=== PATIENT | female | born 1975 | race Two or more races ===

== ENCOUNTER 2024-12-25 10:24 | Inpatient (IN) | payer MEDICAID, OTHER ==
[~2024-12-25] VITALS: Ht 165.1 cm; Wt 102.8 kg
--- NOTE | 2024-12-25 10:29 | ED.PDOC ---
HPI (NEURO) HPI Comments HPI: 47y F who presents to the ED via EMS for chief complaint of seizure like activity. - per EMS, pt states pt was walking to get to her walker and states pt was holding walker and suddenly started to have seizure like activity and fell to the floor - pt states pt did hit her head with no associated loss of consciousness but exhibiting seizure like activity while on the floor and EMS was called to the scene - EMS arrived on scene with noted stable vitals but noted pt exhibiting post- ictal state and noted to be exhibiting tremor like activity - pt arrived to the ED, noted to exhibiting tremor like activity but is alert and oriented and able to answer all questions - EMS states pt did take her Trileptal seizure medication last night and earlier this AM and states she is otherwise complaint with her medications. - pt denies use of blood thinner at this time -pt states she saw neurologist 2x months prior and had her seizure medication changed from Keppra to Trileptal - pt last saw neurologist 2x weeks prior - pt states despite taking her medications, she gets seizures 1-2x monthly - pt in the ED, states she has been sick at home for the past 5x days with associated nausea, vomiting, diarrhea, - pt now in ED, denies these symptoms Past Medical history: epilepsy, HTN, RA, SLE, Past Surgical history: unknown Medications: Trileptal, Prozac, gabapentin, Seroquel , furosemide however patient states she has not been taking it Social History: Denies smoking, ETOH, and drug use. Allergies: morphine HPI: Poor Historian. REVIEW OF SYSTEMS: CONSTITUTIONAL: Denies acute: fever, diaphoresis, chills, HEAD: Denies acute: headache, photophobia Eyes: Denies acute: Double vision, vision loss, eye pain, eye discharge. EARS: Denies acute: tinnitus, hearing loss, ear discharge, ear pain, THROAT: Denies acute: sore throat, swelling, difficulty swallowing , pain with swallowing, change in voice. NECK: Denies acute: neck pain, neck swelling, stiff neck. HEART: Denies acute : chest pain, palpitations, LUNGS: Denies acute: SOB, wheezing, cough, hemoptysis ABDOMEN: Denies acute: abdominal pain, Nausea, Vomiting, diarrhea, melena , hematemesis, hematochezia SKIN: Denies acute: rash, redness, lesions, itchiness. EXTREMITIES: Denies acute: calf pain, numbness, tingling, weakness, denies pain in extremity. Denies acute: Low back pain. Neuro: Denies acute: focal neurological deficit, motor or sensory focal neurological deficit, confusion, dizziness, change in mental status, loss of bowel or bladder function, cauda equina like symptoms. : Denies acute: dysuria, hematuria, flank pain, increase in urinary frequency. PSYCH: Denies acute: hallucination, suicidal ideation, homicidal ideation. FEMALE: Denies acute: abnormal vaginal bleeding, foul odor, unusual discharge. PHYSICAL EXAM: General: ----mild----acute distress, awake and alert. Head: normocephalic, atraumatic. Neck: supple, trachea is midline, no swelling. Cervical spine: Palpation of the posterior midline of the cervical spine reveals no focal swelling, erythema, focal tenderness to palpation. Patient has normal range of motion. Throat: Normal phonation. Eyes:, no erythema, no purulent discharge, no proptosis, no icterus. Heart: regular rate, regular rhythm, no significant murmur appreciated. Lungs: no apparent respiratory distress, Able to speak in full sentences. No wheezing, no rhonchi, no crackles. No stridors Clear to auscultation bilaterally. Abdomen: non tender to palpation, non distended, soft, no guarding, no rebound, + bowel sounds. Obese Neuro: Awake, Alert, oriented to name, self, situation, follows commands. Noted resting tremors/jerking like sensation GCS=15. Speech is normal. Skin: no petechia, no purpura, no cyanosis, non-pale, not jaundice. Lower extremities: --no - Pitting edema no deformity, no focal swelling, no calf TTP. Makes eye contact. moves all four extremities. Face: no apparent facial droop. PERRLA, EOM-I CN 2-12 are grossly intact, No nystagmus. No nuchal rigidity, Kernig's sign, Brudzinski's sign, no meningeal signs. ED COURSE: DISCLAIMER: This medical document was created using an electronic medical record system with voice recognition software and computerized dictation system. Although this document has been carefully reviewed, there might still be some phonetic and typographical errors. Occasional wrong-word or "sound-alike" substitutions may have occurred due to the inherent limitations of voice recognition software. These areas are purely typographical due to imperfections of the software programs and do not reflect any compromise in the patient's medical care. Please read the chart carefully and recognize, using context, where these substitutions have occurred. Time Seen by MD: 10:31 Reviewed Notes: Wax Cutter Notes Information Source: Patient, Emergency Med Personnel Mode of Arrival: EMS Brought in by: EMS Was a procedure done? Was a procedure done?: No Differential Diagnosis (SZ) Seizure: Other (SEIZUREDDX include not limited to CVA, cerebellar ischemia/infarct, carotid stenosis, vertebral/carotid artery dissection,, kelly tebrobasillary insufficiency, Intracranial mass/infection/bleed, encephalopathy, elctrolyte abnormality, thyroid disease, multiple sclerosis, hypoglycemia, drug toxicity, cardiac arrhythmia, sub-theraputic anti-convulsion medications, known seizure disorder, pseudo-seizure.) X-Ray, Labs, Meds, VS Vital Signs Date Time Temp Pulse Resp B/P (MAP) Pulse Ox O2 Delivery O2 Flow Rate FiO2 12/25/24 13:32 87 12/25/24 13:20 81 13 103/55 (71) 96 12/25/24 11:30 88 12/25/24 11:00 98.1 94 13 87/49 (62) 89 98.1 12/25/24 11:00 94 13 89 Nasal Cannula* 4 36 12/25/24 10:44 98.8 101 18 111/83 (92) 96 98.8 12/25/24 10:43 94 Lab Test 12/25/24 12:19 12/25/24 12:12 12/25/24 11:48 12/25/24 10:50 Range/Units Prothrombin Time 10.5 9.3-11.8 sec Prothrombin Time INR 0.99 0.9-1.15 Activated Partial Thromboplast Time 22.0 L 24.5-34.5 SEC Lactic Acid Level 2.0 2.5 *H 0.4-2.0 mmol/L Urine Color Yellow Yellow Urine Clarity Clear Clear Urine pH 5.5 5.0-9.0 Urine Specific [employer] 1.016 1.001-1.035 Urine Protein 2+ H Negative Urine Ketones Negative Negative Urine Blood Negative Negative /uL Urine Nitrite Negative Negative Urine Bilirubin Negative Negative Urine Urobilinogen Normal Negative mg/dL Urine Leukocyte Esterase Negative Negative /uL Urine RBC <1 0 - 4 /hpf Urine Microscopic WBC 1 0-5 /HPF Urine Squamous Epithelial Cells Few <5 /hpf Urine Bacteria None seen None Seen /hpf Urine Hyaline Casts Few 0 - 2 /lpf Urine Creatinine 138.14 H 30.0-125.0 mg/dL Urine Protein/Creatinine Ratio 1.76 Urine Glucose 3+ H Normal mg/dL Urine Total Protein 243.8 H 1-14 mg/dL Urine Opiates Screen Neg NEGATIVE Urine Fentanyl Screen Neg NEGATIVE Urine Barbiturates Screen Neg NEGATIVE Urine Phencyclidine Screen Neg NEGATIVE Urine Amphetamines Screen Neg NEGATIVE Urine Benzodiazepines Screen Neg NEGATIVE Urine Cocaine Screen Neg NEGATIVE Urine Cannabinoids Screen Pos NEGATIVE POC Glucose 151 H 70-106 mg/dl White Blood Count 14.0 H 4.4-10.8 10^3/uL Red Blood Count 4.60 4.0-5.20 10^6/uL Hemoglobin 13.3 12.2-16.2 g/dL Hematocrit 39.5 36.0-46.0 % Mean Corpuscular Volume 85.8 80.0-100.0 fL Mean Corpuscular Hemoglobin 28.9 28.0-32.0 pg Mean Corpuscular Hemoglobin Concent 33.7 32.0-36.0 g/dL Red Cell Distribution Width 15.3 H 11.8-14.3 % Platelet Count 142 140-450 10^3/uL Mean Platelet Volume 9.7 6.9-10.8 fL Neutrophils (%) (Auto) 68.4 37.0-80.0 % Lymphocytes (%) (Auto) 25.2 10.0-50.0 % Monocytes (%) (Auto) 4.2 0.0-12.0 % Eosinophils (%) (Auto) 1.8 0.0-7.0 % Basophils (%) (Auto) 0.4 0.0-2.0 % Neutrophils # (Auto) 9.6 H 1.6-8.6 10 ^3/uL Lymphocytes # (Auto) 3.5 0.4-5.4 10 ^3/uL Monocytes # (Auto) 0.6 0-1.3 10 ^3/uL Eosinophils # (Auto) 0.2 0-0.8 10 ^3/uL Basophils # (Auto) 0.1 0-0.2 10 ^3/uL Nucleated Red Blood Cells 0.0 % Sodium Level 136 136-145 mmol/L Potassium Level 3.9 3.5-5.1 mmol/L Chloride Level 97 L 98-107 mmol/L Carbon Dioxide Level 29 20-31 mmol/L Anion Gap 10 5-15 Blood Urea Nitrogen 52 H 9-23 mg/dL Creatinine 3.80 H 0.550-1.02 mg/dL Glomerular Filtration Rate Calc 14 >90 mL/min BUN/Creatinine Ratio 13.7 10.0-20.0 Serum Glucose 145 H 74-106 mg/dL Calcium Level 9.7 8.7-10.4 mg/dL Magnesium Level 1.9 1.6-2.6 mg/dL Total Bilirubin 0.3 0.2-1.0 mg/dL Aspartate Amino Transferase (AST) 33 13-40 U/L Alanine Aminotransferase (ALT) 38 7-40 U/L Alkaline Phosphatase 144 H 46-116 U/L Troponin I High Sensitivity < 3 L </=34 ng/L Total Protein 7.4 5.7-8.2 g/dL Albumin 4.3 3.2-4.8 g/dL Microbiology Date/Time Source Procedure Growth Status 12/25/24 12:00 Blood Blood Culture - Final NO GROWTH AFTER 5 DAYS OF INCUBATION. [facility] 12/25/24 11:50 Blood Blood Culture - Final NO GROWTH AFTER 5 DAYS OF INCUBATION. [place] [address] Ph: [phone] DIAGNOSTIC IMAGING Diagnostic Imaging Report : [id number] Signed PATIENT: LINDA SANTANA ACCT: [id number] UNIT: [id number] : 1975 LOC: ER ROOM / BED: / AGE / SEX: 49 / F ADM STATUS: REG ER SERVICE 1028 ORDERING PHYSICIAN: LEO MCGRAW DO PROCEDURE(s): HWOCT - HEAD WITHOUT CONTRAST REASON: ORDER NUMBER(s): [id number], ACCESSION NUMBER(s): [id number] CT HEAD WITHOUT CONTRAST INDICATION: sz EXAM DATE: 12/25/2024 11:03 AM COMPARISON: None RADIATION DOSE: CTDIvol: 590.55 mGy, DLP: 589.11 mGy*cm PROCEDURE: CT scans of the head were obtained from the vertex to the skull base. Sagittal and coronal reconstructions were provided. All CT scans at this medical facility are performed using dose modulation techniques as appropriate to a performed exam including the following: Automated exposure control was utilized; adjustment of the MA and/or KV according to patient size; and use of iterative reconstruction technique. FINDINGS: There is sulcal and ventricular prominence. The brainshows normal morphology and mora-white matter differentiation, without intracranial hemorrhage, extra-axial fluid collection, mass effect or acute large vessel infarct. The ventricles are normal in size. The basal cisterns are patent. The skull and visible facial bones are intact. The paranasal sinuses, mastoid air cells and middle ear cavities are well-aerated. The soft tissues of the scalp are unremarkable. IMPRESSION: No acute intracranial abnormality. ATED BY: ROBERTH TAFOYA MD DICTATED DATE/TIME: 12/25/24 1140 SIGNED BY: ROBERTH TAFOYA MD SIGNED DATE/TIME: 12/25/24 1140 CC: [place] [address] Ph: [phone] DIAGNOSTIC IMAGING Diagnostic Imaging Report : [id number] Signed PATIENT: LINDA SANTANA ACCT: [id number] UNIT: [id number] : 1975 LOC: ER ROOM / BED: / AGE / SEX: 49 / F ADM STATUS: REG ER SERVICE 1028 ORDERING PHYSICIAN: LEO MCGRAW DO PROCEDURE(s): CXRP - CHEST PORTABLE REASON: ORDER NUMBER(s): [id number], ACCESSION NUMBER(s): [id number] CHEST PORTABLE, HISTORY: COMPARISON: None None TECHNICAL DATA: 1 view of the chest was obtained. FINDINGS: Lines and tubes: None Cardiomediastinal silhouette: normal Pulmonary vasculature: normal Lung expansion: normal Lung airspace: normal Lung interstitium: normal Pleura: normal Pneumothorax: no Bones: Unremarkable Other: no IMPRESSION: No acute intrathoracic abnormality. ATED BY: ROBERTH TAFOYA MD DICTATED DATE/TIME: 12/25/24 1142 SIGNED BY: ROBERTH TAFOYA MD SIGNED DATE/TIME: 12/25/24 114 CC: [address] [address] Ph: [phone] DIAGNOSTIC IMAGING Diagnostic Imaging Report : [id number] Signed PATIENT: LINDA SANTANA ACCT: [id number] UNIT: [id number] : 1975 LOC: ER ROOM / BED: / AGE / SEX: 49 / F ADM STATUS: REG ER SERVICE 1028 ORDERING PHYSICIAN: LEO MCGRAW DO PROCEDURE(s): CS2 - CERVICAL WITHOUT CONTRAST REASON: donna ORDER NUMBER(s): [id number], ACCESSION NUMBER(s): [id number] EXAM: CT CERVICAL WITHOUT CONTRAST INDICATION: sz EXAM DATE: 12/25/2024 11:05 AM COMPARISON: None TECHNIQUE: Multiple axial CT images of the cervical spine were obtained using noemy ne algorithm. Sagittal and coronal reformatting was done. Bone and soft tissue windows were reviewed. Radiation Dose Information: CT Dose: CTDI volume is 0.07 mGy. Dose-length product is 626.64 mGy*cm FINDINGS: The cervical alignment is intact. No acute cervical spine fracture is identified. The vertebral body heights are intact. No suspicious osseous lesions are identified. No significant degenerative changes are identified. Difficult spinal or neural foraminal stenosis. There is no prevertebral soft tissue swelling. IMPRESSION: 1. No evidence of acute cervical spine fracture or traumatic malalignment. All CT scans at this medical facility are performed using dose modulation techniques as appropriate to a performed exam including the following: Automated exposure control was utilized; adjustment of the MA and/or KV according to patient size; and use of iterative reconstruction technique. ATED BY: HARLAN JACKSON MD DICTATED DATE/TIME: 12/25/24 1211 SIGNED BY: HARLAN JACKSON MD SIGNED DATE/TIME: 12/25/24 121 CC: Time of 1ST Reevaluation: 18:31 Reevaluation 1ST: Improved Patient Education/Counseling: Diagnosis, Treatment Family Education/Counseling: No Family Present Comments MDM: patient presented with the above HPI.---seizure---workup was initiated. patient was found with the above mentioned diagnosis. the following medications were ordered: please refer to order lists of meds and tests obtained by myself Dr. Mcgraw. Patient ED course and VS have been stabilized. Patient has been reassessed in the ED and remained in a stable condition. Pertinent incidental findings were discussed with the patient and/or family. Patient/family voices understanding and is agreeable with plan. Patient has been observed in the ED adequate length of time to insure improvement/stability. Escalation of care considered: Consideration of escalation to observation or admission Sepsis protocol was initiated. Patient was ADMITTED to the medicine team for further evaluation and treatment of their presentation. All the reports of any imaging studies that were ordered by myself were reviewed by myself. Departure 1 Departure Time of Disposition: 11:13 Impression: Primary Impression: Seizure disorder Additional Impressions: Hypotension Acute renal failure Sacral decubitus ulcer Dehydration Sepsis Leukocytosis Disposition: ADMITTED INPATIENT Admit to: Tele Condition: Guarded Discharged With: Self Critical Care Note Critical Care Time?: Yes (55 min-critical care time only) I personally scribed for LEO MCGRAW DO ([email or web address]) on 12/25/24 at 10:29. El ectronically submitted by Ko Hawley ([email or web address]). I personally scribed for LEO MCGRAW DO ([email or web address]) on 12/25/24 at 10:49. Electronically submitted by Ko Hawley ([email or web address]). I personally scribed for LEO MCGRAW DO ([email or web address]) on 12/25/24 at 11:09. Electronically submitted by Ko Hawley ([email or web address]). I personally scribed for LEO MCGRAW DO ([email or web address]) on 12/25/24 at 12:04. Electronically submitted by Ko Hawley ([email or web address]). I personally scribed for LEO MCGRAW DO ([email or web address]) on 12/25/24 at 12:45. Electronically submitted by Ko Hawley ([email or web address]). I personally scribed for LEO MCGRAW DO ([email or web address]) on 12/25/24 at 12:58. Electronically submitted by Ko Hawley ([email or web address]). LEO MCGRAW DO Dec 25, 2024 10:29
--- NOTE | 2024-12-25 10:52 | ECG ---
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
[2024-12-25 11:00] VITALS: PULSE 94; RESP 13; O2SAT 89
[2024-12-25 11:09] LABS: Hematocrit 39.5 % (36.0-46.0); Hemoglobin 13.3 g/dL (12.2-16.2); Mean Corpuscular Hemoglobin 28.9 pg (28.0-32.0); Mean Corpuscular Volume 85.8 fL (80.0-100.0); Nucleated Red Blood Cells % 0.0 %
[2024-12-25 11:24] LABS: Alanine Aminotransferase 38 U/L (7-40); Anion Gap 10 (5-15); BUN/Creatinine Ratio 13.7 (10.0-20.0); Calcium 9.7 mg/dL (8.7-10.4); Carbon Dioxide 29 mmol/L (20-31); Magnesium 1.9 mg/dL (1.6-2.6); Potassium 3.9 mmol/L (3.5-5.1); Total Protein 7.4 g/dL (5.7-8.2)
[2024-12-25 11:25] LABS: Albumin 4.3 g/dL (3.2-4.8)
[2024-12-25 11:27] LABS: Alkaline Phosphatase 144 U/L (46-116); Bilirubin, Total 0.3 mg/dL (0.2-1.0); Blood Urea Nitrogen 52 mg/dL (9-23); Chloride 97 mmol/L (98-107); Glucose 145 mg/dL (74-106); Sodium 136 mmol/L (136-145)
[2024-12-25 11:28] LABS: Lactic Acid w/Reflex 2.5 mmol/L (0.4-2.0)
--- NOTE | 2024-12-25 11:42 | DVH ---
CT HEAD WITHOUT CONTRAST INDICATION: sz EXAM DATE: 12/25/2024 11:03 AM COMPARISON: None RADIATION DOSE: CTDIvol: 590.55 mGy, DLP: 589.11 mGy*cm PROCEDURE: CT scans of the head were obtained from the vertex to the skull base. Sagittal and coronal reconstructions were provided. All CT scans at this medical facility are performed using dose modulation techniques as appropriate t o a performed exam including the following: Automated exposure control was utilized; adjustment of th e MA and/or KV according to patient size; and use of iterative reconstruction technique. FINDINGS: There is sulcal and ventricular prominence. The brainshows normal morphology and mora-whi te matter differentiation, without intracranial hemorrhage, extra-axial fluid collection, mass effect or acute large vessel infarct. The ventricles are normal in size. The basal cisterns are patent. The skull and visible facial bones are intact. The paranasal sinuses, mastoid air cells and middle ear c avities are well-aerated. The soft tissues of the scalp are unremarkable. IMPRESSION: No acute intracranial abnormality.
--- NOTE | 2024-12-25 11:44 | DVH ---
XY CHEST PORTABLE, HISTORY: sz COMPARISON: None None TECHNICAL DATA: 1 view of the chest was obtained. FINDINGS: Lines and tubes: None Cardiomediastinal silhouette: normal Pulmonary vasculature: normal Lung expansion: normal Lung airspace: normal Lung interstitium: normal Pleura: normal Pneumothorax: no Bones: Unremarkable Other: no IMPRESSION: No acute intrathoracic abnormality.
[2024-12-25] MEDS: LACTATED RINGER'S 1,850 ML IV ONE (11:49)
[2024-12-25] MEDS: VANCOMYCIN 1GM/200ML PM 200 ML IV ONE (12:11)
[2024-12-25] MEDS: CEFEPIME 1GM/ 50ML 50 ML IV ONE (12:14)
--- NOTE | 2024-12-25 12:14 | DVH ---
EXAM: CT CERVICAL WITHOUT CONTRAST INDICATION: sz EXAM DATE: 12/25/2024 11:05 AM COMPARISON: None TECHNIQUE: Multiple axial CT images of the cervical spine were obtained using bone algorithm. Sagitta l and coronal reformatting was done. Bone and soft tissue windows were reviewed. Radiation Dose Information: CT Dose: CTDI volume is 0.07 mGy. Dose-length product is 626.64 mGy*cm FINDINGS: The cervical alignment is intact. No acute cervical spine fracture is identified. The vertebral body heights are intact. No suspicious osseous lesions are identified. No significant degenerative changes are identified. Difficult spinal or neural foraminal stenosis. There is no prevertebral soft tissue swelling. IMPRESSION: 1. No evidence of acute cervical spine fracture or traumatic malalignment. All CT scans at this medical facility are performed using dose modulation techniques as appropriate t o a performed exam including the following: Automated exposure control was utilized; adjustment of th e MA and/or KV according to patient size; and use of iterative reconstruction technique.
[2024-12-25] MEDS: SODIUM CHLORIDE 0.9% 1,000 ML IV ONE ×2 (12:22→15:16)
[2024-12-25 12:57] LABS: Urine Protein, UAD 2+ (Negative)
[2024-12-25 13:09] LABS: INR 0.99 (0.9-1.15); Partial Thromboplastin Time 22.0 SEC (24.5-34.5); Prothrombin Time 10.5 sec (9.3-11.8)
[2024-12-25] MEDS: ACETAMINOPHEN 325 MG TAB PO ONE (13:53)
[2024-12-25 14:52] LABS: Amphetamine Screen, Urine Neg (NEGATIVE); Barbiturate Scree,Urine Neg (NEGATIVE); Benzodiazephine Screen, Urine Neg (NEGATIVE); Cannabinoid Screen, Urine Pos (NEGATIVE); Cocaine Screen, Urine Neg (NEGATIVE); Opiate Scree,Urine Neg (NEGATIVE); Phencyclidine Screen, Urine Neg (NEGATIVE)
[2024-12-25] MEDS ORDERED: MORPHINE SULFATE INJ 2 MG/ml SYRG IV PRN (15:00)
[2024-12-25] MEDS ORDERED: DEXTROSE (50%) 50ML SYRG IV PRN (15:00)
[2024-12-25] MEDS ORDERED: NITROGLYCERIN 0.4 MG SL TAB SL PRN (15:00)
[2024-12-25] MEDS ORDERED: ONDANSETRON HCL 4 MG/2 ML VIAL IV PRN (15:00)
[2024-12-25] MEDS ORDERED: LORazepam 2MG/ML-1ML VIAL IV PRN (15:00)
--- NOTE | 2024-12-25 16:16 | DVHINCON2 ---
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 Javier mcbride in [facility]. She presents to the hospital complaining of several days of nausea vomiting decreased p.o. intake. Reports that her anti depression anxiety medications were recently changed she was found unresponsive by her with abnormal twitching activity. She was admitted to the ER with a tentative diagnosis of seizure disorder. Nephrology consulted due to elevated creatinine level. Most recent renal function as of July of this year the creatinine was 1.2. She now has a creatinine greater than 3.0 in the ER. She is currently alert and able to answer questions with mild intention tremor Allergies: Coded Allergies: Morphine (Verified Allergy, Unknown, 12/25/24) Penicillins (Verified Allergy, Unknown, 12/25/24) Current Medications Current Medications Medications (Trade) Dose Ordered Sig/Rolly Route PRN Reason Start Time Stop Time Status Last Admin Cefepime HCl 50 ml @ 12.5 mls/hr DAILY IV 12/26/24 10:00 Patient Own Medication 100 mg TID PO 12/25/24 22:00 UNV Fluoxetine HCl (PROzac CAPSULE) 20 mg DAILY PO 12/26/24 10:00 Furosemide (Lasix Tablet) 20 mg QAM PO 12/26/24 07:00 Patient Own Medication 50 mg BID PO 12/25/24 22:00 UNV Atorvastatin Calcium (Lipitor) 40 mg HS PO 12/25/24 22:00 Lorazepam (Ativan Inj) 1 mg Q5MINP PRN IV SEIZURES 12/25/24 15:00 Diagnostic Test (Pha) (Accu-Chek Comfort Curve T) 1 strip ACHS 12/25/24 17:00 Insulin Human Regular (InsuLIN R) ACHS SC 12/25/24 17:00 Dextrose 50 ml UD PRN IV Blood Sugar LESS THAN 60 12/25/24 15:00 Ondansetron HCl (Zofran) 4 mg Q4HP PRN IV NAUSEA / VOMITING 12/25/24 15:00 Acetaminophen (Tylenol Tablet) 650 mg Q6HP PRN PO PAIN SCALE 1-3 OR TEMP>100.4 12/25/24 15:00 Nitroglycerin (Ntrostat Sublingual) 0.4 mg Q5MINP PRN SL FOR CHEST PAIN 12/25/24 15:00 Morphine Sulfate 2 mg Q30M PRN IV FOR CHEST PAIN 12/25/24 15:00 UNV Review of Systems Seizure-like activity change in mental state H&P Exam Vital Signs/I&O Vital Sign Date Time Temp Pulse Resp B/P (MAP) Pulse Ox O2 Delivery O2 Flow Rate FiO2 12/25/24 15:14 98.0 95 15 133/66 (88) 96 98.0 12/25/24 11:00 Nasal Cannula* 4 36 Physical Exam Obese mildly anxious female Not overt distress Currently not confused able to answer questions No pitting edema Abdomen is soft Labs/Diagnostic Data Labs/Diagnostic Data Laboratory Tests Test 12/25/24 12:19 12/25/24 12:12 12/25/24 11:48 12/25/24 10:50 Range/Units Prothrombin Time 10.5 9.3-11.8 sec Prothrombin Time INR 0.99 0.9-1.15 Activated Partial Thromboplast Time 22.0 L 24.5-34.5 SEC Lactic Acid Level 2.0 2.5 *H 0.4-2.0 mmol/L Urine Color Yellow Yellow Urine Clarity Clear Clear Urine pH 5.5 5.0-9.0 Urine Specific [place] 1.016 1.001-1.035 Urine Protein 2+ H Negative Urine Ketones Negative Negative Urine Blood Negative Negative /uL Urine Nitrite Negative Negative Urine Bilirubin Negative Negative Urine Urobilinogen Normal Negative mg/dL Urine Leukocyte Esterase Negative Negative /uL Urine RBC <1 0 - 4 /hpf Urine Microscopic WBC 1 0-5 /HPF Urine Squamous Epithelial Cells Few <5 /hpf Urine Bacteria None seen None Seen /hpf Urine Hyaline Casts Few 0 - 2 /lpf Urine Glucose 3+ H Normal mg/dL Urine Opiates Screen Neg NEGATIVE Urine Fentanyl Screen Neg NEGATIVE Urine Barbiturates Screen Neg NEGATIVE Urine Phencyclidine Screen Neg NEGATIVE Urine Amphetamines Screen Neg NEGATIVE Urine Benzodiazepines Screen Neg NEGATIVE Urine Cocaine Screen Neg NEGATIVE Urine Cannabinoids Screen Pos NEGATIVE POC Glucose 151 H 70-106 mg/dl White Blood Count 14.0 H 4.4-10.8 10^3/uL Red Blood Count 4.60 4.0-5.20 10^6/uL Hemoglobin 13.3 12.2-16.2 g/dL Hematocrit 39.5 36.0-46.0 % Mean Corpuscular Volume 85.8 80.0-100.0 fL Mean Corpuscular Hemoglobin 28.9 28.0-32.0 pg Mean Corpuscular Hemoglobin Concent 33.7 32.0-36.0 g/dL Red Cell Distribution Width 15.3 H 11.8-14.3 % Platelet Count 142 140-450 10^3/uL Mean Platelet Volume 9.7 6.9-10.8 fL Neutrophils (%) (Auto) 68.4 37.0-80.0 % Lymphocytes (%) (Auto) 25.2 10.0-50.0 % Monocytes (%) (Auto) 4.2 0.0-12.0 % Eosinophils (%) (Auto) 1.8 0.0-7.0 % Basophils (%) (Auto) 0.4 0.0-2.0 % Neutrophils # (Auto) 9.6 H 1.6-8.6 10 ^3/uL Lymphocytes # (Auto) 3.5 0.4-5.4 10 ^3/uL Monocytes # (Auto) 0.6 0-1.3 10 ^3/uL Eosinophils # (Auto) 0.2 0-0.8 10 ^3/uL Basophils # (Auto) 0.1 0-0.2 10 ^3/uL Nucleated Red Blood Cells 0.0 % Sodium Level 136 136-145 mmol/L Potassium Level 3.9 3.5-5.1 mmol/L Chloride Level 97 L 98-107 mmol/L Carbon Dioxide Level 29 20-31 mmol/L Anion Gap 10 5-15 Blood Urea Nitrogen 52 H 9-23 mg/dL Creatinine 3.80 H 0.550-1.02 mg/dL Glomerular Filtration Rate Calc 14 >90 mL/min BUN/Creatinine Ratio 13.7 10.0-20.0 Serum Glucose 145 H 74-106 mg/dL Calcium Level 9.7 8.7-10.4 mg/dL Magnesium Level 1.9 1.6-2.6 mg/dL Total Bilirubin 0.3 0.2-1.0 mg/dL Aspartate Amino Transferase (AST) 33 13-40 U/L Alanine Aminotransferase (ALT) 38 7-40 U/L Alkaline Phosphatase 144 H 46-116 U/L Troponin I High Sensitivity < 3 L </=34 ng/L Total Protein 7.4 5.7-8.2 g/dL Albumin 4.3 3.2-4.8 g/dL Assessment 49-year-old white female past medical history of chronic kidney disease three and depression anxiety on medications presents to the hospital after unresponsiveness and possible seizure disorder. She is admitted for this reason. Nephrology consulted due to acute kidney injury. Acute kidney injury hemodynamically mediated in the setting of volume depletion reports nausea vomiting diarrhea Chronic kidney disease stage IIIA Dr. Herrera Depression anxiety on neuroleptics Hypertension Diabetes Tremors and possible seizure disorder Agree with IV fluid hydration Electrolyte replacement as needed P.o. as tolerated Patient endorses a history of lupus and reports she is on Plaquenil however outpatient office notes do not show this on her medication list. Recommend reconciliation with her pharmacy. We will send urine and serologies , will also send hepatitis serologies No emergent indication for dialysis at this time we will continue trial of IV fluids and monitor for improvement in renal function. Total care time spent 55 minutes Plan discussed with: Patient KELLI COELHO MD Dec 25, 2024 16:16
--- NOTE | 2024-12-25 16:24 | DVHHP2 ---
History of Present Illness Reason for Visit: Seizure activity History of Present Illness 47-year-old female with a history of epilepsy presents for evaluation of seizure-like activity. Patient reports having a witnessed episode lasting approximately 5 minutes. She states that after she regained consciousness she did not recall what it has been. She was having a headache which has currently resolved. No oral trauma or incontinence. Denies any other acute complaints at the moment. Past Medical History Seizure, hypertension, rheumatoid arthritis, SLE, diabetes mellitus Past Surgical History Denies Family History Noncontributory Smoke: No ALCOHOL: none Drugs: Marijuana Lives: with Family Review of Systems Review of Systems Review of systems are currently negative otherwise addressed in HPI. Allergies: Coded Allergies: Morphine (Verified Allergy, Unknown, 12/25/24) Penicillins (Verified Allergy, Unknown, 12/25/24) Medications Current Medications Medications Dose Ordered Sig/Rolly Route Start Time Stop Time Status Last Admin Dose Admin Cefepime HCl 50 ml @ 12.5 mls/hr DAILY IV 12/26/24 10:00 Patient Own Medication 100 mg TID PO 12/25/24 22:00 UNV Fluoxetine HCl 20 mg DAILY PO 12/26/24 10:00 Furosemide 20 mg QAM PO 12/26/24 07:00 Patient Own Medication 50 mg BID PO 12/25/24 22:00 UNV Atorvastatin Calcium 40 mg HS PO 12/25/24 22:00 Lorazepam 1 mg Q5MINP PRN IV 12/25/24 15:00 Diagnostic Test (Pha) 1 strip ACHS 12/25/24 17:00 Insulin Human Regular ACHS SC 12/25/24 17:00 Dextrose 50 ml UD PRN IV 12/25/24 15:00 Ondansetron HCl 4 mg Q4HP PRN IV 12/25/24 15:00 Acetaminophen 650 mg Q6HP PRN PO 12/25/24 15:00 Nitroglycerin 0.4 mg Q5MINP PRN SL 12/25/24 15:00 Morphine Sulfate 2 mg Q30M PRN IV 12/25/24 15:00 UNV Exam Vital Signs Vital Signs Date Time Temp Pulse Resp B/P (MAP) Pulse Ox O2 Delivery O2 Flow Rate FiO2 12/25/24 15:14 98.0 95 15 133/66 (88) 96 98.0 12/25/24 11:00 Nasal Cannula* 4 36 Exam Gen: 47-year-old female in no apparent distress. Skin: Warm, dry, normal color and texture, no rash. HEENT: Normocephalic atraumatic, mucous membranes moist and pink. Neck: Cervical and supraclavicular nodes normal without enlargement, trachea is midline, thyroid gland is normal without masses. Pulmonary: Clear to auscultation and percussion bilaterally. Cardiac: Regular rate and rhythm. No murmur Abdomen: Soft, nontender, nondistended, bowel sounds present all 4 quadrants, no guarding, no rigidity, no organomegaly. Extremities: No cyanosis, clubbing, no edema Neuro: Cranial nerves II through XII grossly intact, normal affect and speech, no focal motor deficits. Labs/Xrays ORDERING PHYSICIAN: LEO MCGRAW DO PROCEDURE(s): CS2 - CERVICAL WITHOUT CONTRAST REASON: ORDER NUMBER(s): [id number], ACCESSION NUMBER(s): [id number] EXAM: CT CERVICAL WITHOUT CONTRAST INDICATION: EXAM DATE: 12/25/2024 11:05 AM COMPARISON: None TECHNIQUE: Multiple axial CT images of the cervical spine were obtained using bone algorithm. Sagittal and coronal reformatting was done. Bone and soft tissue windows were reviewed. Radiation Dose Information: CT Dose: CTDI volume is 0.07 mGy. Dose-length product is 626.64 mGy*cm FINDINGS: The cervical alignment is intact. No acute cervical spine fracture is identified. The vertebral body heights are intact. No suspicious osseous lesions are identified. No significant degenerative changes are identified. Difficult spinal or neural foraminal stenosis. There is no prevertebral soft tissue swelling. IMPRESSION: 1. No evidence of acute cervical spine fracture or traumatic malalignment. All CT scans at this medical facility are performed using dose modulation techniques as appropriate to a performed exam including the following: Automated exposure control was utilized; adjustment of the MA and/or KV according to patient size; and use of iterative reconstruction technique. RING PHYSICIAN: LEO MCGRAW DO PROCEDURE(s): CXRP - CHEST PORTABLE REASON: ORDER NUMBER(s): [id number], ACCESSION NUMBER(s): [id number] CHEST PORTABLE, HISTORY: COMPARISON: None None TECHNICAL DATA: 1 view of the chest was obtained. FINDINGS: Lines and tubes: None Cardiomediastinal silhouette: normal Pulmonary vasculature: normal Lung expansion: normal Lung airspace: normal Lung interstitium: normal Pleura: normal Pneumothorax: no Bones: Unremarkable Other: no IMPRESSION: No acute intrathoracic abnormality. ATED BY: ROBERTH TAFOYA MD ORDERING PHYSICIAN: LEO MCGRAW DO PROCEDURE(s): HWOCT - HEAD WITHOUT CONTRAST REASON: ORDER NUMBER(s): [id number], ACCESSION NUMBER(s): [id number] CT HEAD WITHOUT CONTRAST INDICATION: EXAM DATE: 12/25/2024 11:03 AM COMPARISON: None RADIATION DOSE: CTDIvol: 590.55 mGy, DLP: 589.11 mGy*cm PROCEDURE: CT scans of the head were obtained from the vertex to the skull base. Sagittal and coronal reconstructions were provided. All CT scans at this medical facility are performed using dose modulation techniques as appropriate to a performed exam including the following: Automated exposure control was utilized; adjustment of the MA and/or KV according to patient size; and use of iterative reconstruction technique. FINDINGS: There is sulcal and ventricular prominence. The brainshows normal morphology and mora-white matter differentiation, without intracranial hemorrhage, extra-axial fluid collection, mass effect or acute large vessel infarct. The ventricles are normal in size. The basal cisterns are patent. The skull and visible facial bones are intact. The paranasal sinuses, mastoid air cells and middle ear cavities are well-aerated. The soft tissues of the scalp are unremarkable. IMPRESSION: No acute intracranial abnormality. Labs Test 12/25/24 12:19 12/25/24 12:12 12/25/24 11:48 12/25/24 10:50 Range/Units Prothrombin Time 10.5 9.3-11.8 sec Prothrombin Time INR 0.99 0.9-1.15 Activated Partial Thromboplast Time 22.0 L 24.5-34.5 SEC Lactic Acid Level 2.0 0.4-2.0 mmol/L Urine Color Yellow Yellow Urine Clarity Clear Clear Urine pH 5.5 5.0-9.0 Urine Specific [place] 1.016 1.001-1.035 Urine Protein 2+ H Negative Urine Ketones Negative Negative Urine Blood Negative Negative /uL Urine Nitrite Negative Negative Urine Bilirubin Negative Negative Urine Urobilinogen Normal Negative mg/dL Urine Leukocyte Esterase Negative Negative /uL Urine RBC <1 0 - 4 /hpf Urine Microscopic WBC 1 0-5 /HPF Urine Squamous Epithelial Cells Few <5 /hpf Urine Bacteria None seen None Seen /hpf Urine Hyaline Casts Few 0 - 2 /lpf Urine Glucose 3+ H Normal mg/dL Urine Opiates Screen Neg NEGATIVE Urine Fentanyl Screen Neg NEGATIVE Urine Barbiturates Screen Neg NEGATIVE Urine Phencyclidine Screen Neg NEGATIVE Urine Amphetamines Screen Neg NEGATIVE Urine Benzodiazepines Screen Neg NEGATIVE Urine Cocaine Screen Neg NEGATIVE Urine Cannabinoids Screen Pos NEGATIVE POC Glucose 151 H 70-106 mg/dl White Blood Count 14.0 H 4.4-10.8 10^3/uL Red Blood Count 4.60 4.0-5.20 10^6/uL Hemoglobin 13.3 12.2-16.2 g/dL Hematocrit 39.5 36.0-46.0 % Mean Corpuscular Volume 85.8 80.0-100.0 fL Mean Corpuscular Hemoglobin 28.9 28.0-32.0 pg Mean Corpuscular Hemoglobin Concent 33.7 32.0-36.0 g/dL Red Cell Distribution Width 15.3 H 11.8-14.3 % Platelet Count 142 140-450 10^3/uL Mean Platelet Volume 9.7 6.9-10.8 fL Neutrophils (%) (Auto) 68.4 37.0-80.0 % Lymphocytes (%) (Auto) 25.2 10.0-50.0 % Monocytes (%) (Auto) 4.2 0.0-12.0 % Eosinophils (%) (Auto) 1.8 0.0-7.0 % Basophils (%) (Auto) 0.4 0.0-2.0 % Neutrophils # (Auto) 9.6 H 1.6-8.6 10 ^3/uL Lymphocytes # (Auto) 3.5 0.4-5.4 10 ^3/uL Monocytes # (Auto) 0.6 0-1.3 10 ^3/uL Eosinophils # (Auto) 0.2 0-0.8 10 ^3/uL Basophils # (Auto) 0.1 0-0.2 10 ^3/uL Nucleated Red Blood Cells 0.0 % Sodium Level 136 136-145 mmol/L Potassium Level 3.9 3.5-5.1 mmol/L Chloride Level 97 L 98-107 mmol/L Carbon Dioxide Level 29 20-31 mmol/L Anion Gap 10 5-15 Blood Urea Nitrogen 52 H 9-23 mg/dL Creatinine 3.80 H 0.550-1.02 mg/dL Glomerular Filtration Rate Calc 14 >90 mL/min BUN/Creatinine Ratio 13.7 10.0-20.0 Serum Glucose 145 H 74-106 mg/dL Calcium Level 9.7 8.7-10.4 mg/dL Magnesium Level 1.9 1.6-2.6 mg/dL Total Bilirubin 0.3 0.2-1.0 mg/dL Aspartate Amino Transferase (AST) 33 13-40 U/L Alanine Aminotransferase (ALT) 38 7-40 U/L Alkaline Phosphatase 144 H 46-116 U/L Troponin I High Sensitivity < 3 L </=34 ng/L Total Protein 7.4 5.7-8.2 g/dL Albumin 4.3 3.2-4.8 g/dL SEPSIS Sepsis Screen Date sepsis recognized/suspect: Dec 25, 2024 Time Sepsis recognized/suspect: 1100 Recent Procedure: No On Antibiotic Therapy: No Respiratory Rate >20: No Heart Rate >90: Yes Temp<36 C (96.8 F) or >38.3 C: No SBP <90 or MAP <65 mmHG: Yes New Acute Mental Status Change: No Is the patient on CPAP, BIPAP,: No Physician Orders Admission Liaison (12/25/24 ) Seizure Precautions (12/25/24 ) Chest Portable (12/25/24 10:28) Head Without Contrast (12/25/24 10:28) Cervical Without Contrast (12/25/24 10:28) Accucheck (12/25/24 11:34) Blood Culture (12/25/24 11:34) Notify Md If Map <65 Or Bp<90 (12/25/24 11:34) If Map<65 Start Vasopressor (12/25/24 11:34) Sepsis Reassesment After Fluid (12/25/24 12:34) Cefepime 1gm/ 50ml (Maxipime 1gm/50ml) (12/26/24 10:00) Sodium Chloride 0.9% (12/25/24 15:00) (Nf) Xcopri (12/25/24 22:00) Fluoxetine Capsule (Prozac Capsule) (12/26/24 10:00) (Nf) Lacosamide (12/25/24 22:00) Atorvastatin (Lipitor) (12/25/24 22:00) Basic Metabolic Panel (12/26/24 04:00) Seizure Precautions In Place (12/25/24 14:52) Lorazepam 2mg/Ml Inj (Ativan Inj) (12/25/24 15:00) * Neurology Consult (12/25/24 14:52) Glucose Blood (Accu-Chek Comfort Curve T (12/25/24 17:00) Insulin R (Human) (Insulin R) (12/25/24 17:00) Dextrose 50% Syringe (12/25/24 15:00) Admit (12/25/24 14:52) Ondansetron Hcl (Zofran) (12/25/24 15:00) Complete Blood Count (12/26/24 04:00) Cardiac Diet-2gna,Lofat,Lochol (12/25/24 Dinner) Condition: Stable (12/25/24 14:52) Acetaminophen Tablet (Tylenol Tablet) (12/25/24 15:00) Bedrest With Bathroom Privileg (12/25/24 14:52) Nitroglycerin Sublingual (Ntrostat Subli (12/25/24 15:00) Morphine Sulfate Injection (12/25/24 15:00) Stat Ekg For Chest Pain (12/25/24 14:52) Notify Md Of Changes From Base (12/25/24 14:52) Manufacturing Engineer Supervisor For 24 Hours (12/25/24 14:52) Emergency Dysrhythmia Protocol (12/25/24 14:52) Rhythm Strips Once Every Shift (12/25/24 14:52) Oxygen By Nasal Cannula (12/25/24 14:52) *[facility] (12/25/24 14:52) Sodium Chloride 0.9% (12/25/24 16:30) [place]; Comprehensive Panel (12/26/24 04:00) Anti-Dsdna Antibody (12/26/24 04:00) Complement C3 & C4 (12/26/24 04:00) Erythrocyte Sedimentation Rate (12/26/24 04:00) Acute Hepatitis Panel (12/26/24 04:00) Anca Panel (12/26/24 04:00) Urine Protein/Creatinine Ratio (12/25/24 ) Vital Signs Date Time Temp Pulse Resp B/P (MAP) Pulse Ox O2 Delivery O2 Flow Rate FiO2 12/25/24 15:14 98.0 95 15 133/66 (88) 96 98.0 12/25/24 15:07 98.5 98 12 156/73 (100) 95 98.5 12/25/24 13:32 87 12/25/24 13:20 81 13 103/55 (71) 96 12/25/24 11:30 88 12/25/24 11:00 98.1 94 13 87/49 (62) 89 98.1 12/25/24 11:00 94 13 89 Nasal Cannula* 4 36 12/25/24 10:44 98.8 101 18 111/83 (92) 96 98.8 12/25/24 10:43 94 Laboratory Tests Test 12/25/24 10:50 12/25/24 12:19 Lactic Acid Level 2.5 mmol/L (0.4-2.0) *H 2.0 mmol/L (0.4-2.0) White Blood Count 14.0 10^3/uL (4.4-10.8) H Medications Medications Dose Ordered Sig/Rolly Route Start Time Stop Time Status Last Admin Dose Admin Acetaminophen 650 mg ONCE ONCE PO 12/25/24 13:45 12/25/24 13:46 DC 12/25/24 13:53 650 MG Cefepime HCl 50 ml @ 50 mls/hr ONCE ONCE IV 12/25/24 12:15 12/25/24 13:14 DC 12/25/24 12:14 50 MLS/HR Lactated Ringer's 1,850 ml @ 1,850 mls/hr ONCE ONCE IV 12/25/24 11:45 12/25/24 12:44 DC 12/25/24 11:49 1,850 MLS/HR Sodium Chloride 1,000 ml @ 100 mls/hr Q10H ONCE IV 12/25/24 15:00 12/26/24 00:59 12/25/24 15:16 100 MLS/HR Vancomycin HCl 200 ml @ 200 mls/hr ONCE ONCE IV 12/25/24 11:45 12/25/24 12:44 DC 12/25/24 12:11 200 MLS/HR Assessment/Plan Assessment/Plan Assessment Breakthrough seizure Acute kidney injury Hypotension Leukocytosis Diabetes mellitus Sirs Plan Admit the patient to Med surge to the hospitalist Nephrology consult Nephrology consultation Blood cultures pending Cefepime Hold antihypertensives Continue treatment per orders. Plan discussed with: Patient My Orders [facility] Procedure Category Date Status Time Sodium Chloride 0.9% PHA 12/25/24 In Process 15:00 (Nf) Xcopri PHA 12/25/24 Logged 22:00 Fluoxetine Capsule PHA 12/26/24 In Process (Prozac Capsule) 10:00 (Nf) Lacosamide PHA 12/25/24 Logged 22:00 Atorvastatin (Lipitor) PHA 12/25/24 In Process 22:00 Basic Metabolic Panel LAB 12/26/24 Verified 04:00 Seizure Precautions YANETH 12/25/[address] 14:52 Lorazepam 2mg/Ml Inj PHA 12/25/24 In Process (Ativan Inj) 15:00 * Neurology Consult CONS 12/25/24 Transmitted 14:52 Glucose Blood PHA 12/25/24 In Process (Accu-Chek Comfort 17:00 Insulin R (Human) PHA 12/25/24 In Process (Insulin R) 17:00 Dextrose 50% Syringe PHA 12/25/24 In Process 15:00 Admit ADMIT 12/25/24 Transmitted 14:52 Ondansetron Hcl PHA 12/25/24 In Process (Zofran) 15:00 Complete Blood Count LAB 12/26/24 Verified 04:00 Cardiac DIET 12/25/24 Transmitted Diet-2gna,Lofat,Lochol Dinner Condition: Stable YANETH 12/25/24 In Process 14:52 Acetaminophen Tablet PHA 12/25/24 In Process (Tylenol Tablet) 15:00 Bedrest With Bathroom YANETH 12/25/24 In Process Privileg 14:52 Nitroglycerin PHA 12/25/24 In Process Sublingual (Ntrostat 15:00 Morphine Sulfate PHA 12/25/24 Logged Injection 15:00 Stat Ekg For Chest YANETH 12/25/24 In Process Pain 14:52 Notify Md Of Changes [facility] 12/25/24 In Process From Base 14:52 Manufacturing Engineer Supervisor For [facility] 12/25/24 In Process 24 Hours 14:52 Emergency Dysrhythmia [facility] 12/25/24 In Process Protocol 14:52 Rhythm Strips Once [facility] 12/25/24 In Process Every Shift 14:52 Oxygen By Nasal RT 12/25/24 Transmitted Cannula 14:52 *[facility] CONS 12/25/24 Transmitted -[place] 14:52 Date of Service: Dec 25, 2024 Billing Provider: WANDA HAQ Common Visit Codes: [id number] INP/OBS CARE (HIGH) WANDA HAQ Dec 25, 2024 16:24
[2024-12-25] MEDS: SODIUM CHLORIDE 0.9% 1,000 ML IV SCH (16:30)
[2024-12-25] MEDS ORDERED: HYDR-4798 PO (16:41)
[2024-12-25] MEDS ORDERED: FLUO-125 PO (16:41)
[2024-12-25] MEDS ORDERED: LORA-1123 PO (16:41)
[2024-12-25] MEDS ORDERED: BACL10TA PO (16:41)
[2024-12-25] MEDS ORDERED: HYDR200T36 PO (16:41)
[2024-12-25] MEDS ORDERED: GABA-1250 PO (16:41)
[2024-12-25] MEDS ORDERED: QUET25TA37 PO (16:41)
[2024-12-25] MEDS ORDERED: QUET50TA PO (16:41)
[2024-12-25] MEDS ORDERED: VALS160T53 PO (16:41)
[2024-12-25] MEDS: InsuLIN REG 1unit/0.01ml Soln (100units/ml) SC SCH (16:51)
[2024-12-25] MEDS: ACCU-CHEK COMFORT CURVE STRIP VI SCH (16:52)
[2024-12-25] MEDS: HYDROcodone-ACET 10/325MG TAB PO ONE (16:52)
[2024-12-25 16:56] LABS: Protein, Urine 243.8 mg/dL (1-14)
[2024-12-25] MEDS ORDERED: OXCA600T3 PO (17:08)
[2024-12-25 18:45] VITALS: BP 114/59; PULSE 90; RESP 18; TEMP 97.5; O2SAT 98
[2024-12-25 18:47] VITALS: PULSE 90; RESP 18; O2SAT 98
[2024-12-25] MEDS ORDERED: TEMA15CA2 PO (20:53)
[2024-12-25] MEDS ORDERED: OXCA150T61 PO (20:54)
[2024-12-25] MEDS ORDERED: INSU100I52 IJ (20:54)
[2024-12-25] MEDS: LACOSAMIDE 50 MG TAB PO SCH (20:59)
[2024-12-25] MEDS: ATORVASTATIN 20 MG TAB PO SCH (20:59)
[2024-12-25 21:00] VITALS: BP 103/66; PULSE 92; RESP 18; TEMP 98.2; O2SAT 97
[2024-12-25] MEDS: XCOPRI 100 MG PO SCH (21:58)
[2024-12-25] MEDS: MELATONIN 5 MG TAB PO ONE (23:11)
[2024-12-26] VITALS (11 sets, daily range): BP systolic 97–143; BP diastolic 58–92; PULSE 63–88; RESP 16–19; TEMP 97.6–98.6; O2SAT 91–100
[2024-12-26] MEDS: LORazepam 2MG/ML-1ML VIAL IV PRN (04:24)
[2024-12-26] MEDS ORDERED: FUROSEMIDE 20 MG TAB PO SCH (07:00)
--- NOTE | 2024-12-26 08:48 | DVH ---
CLINICAL INDICATION: pain TECHNIQUE: 3 radiographic views of the right ankle were obtained. Comparison: None FINDINGS/IMPRESSION: Medial malleolus fracture. The visualized joint space is well maintained. The alignment is anatomical. There is no radiopaque foreign body.
--- NOTE | 2024-12-26 08:50 | DVH ---
XY L WRIST 3+ VIEW XRAY, INDICATION: S/P fall; pain TECHNICAL DATA: Frontal , oblique, and lateral views were obtained of the left wrist. COMPARISON: None FINDINGS: No fracture is identified. Joint spaces are maintained. Alignment is anatomic. Ulnar variance is neut ral. Soft tissues are within normal limits. IMPRESSION: No acute fracture or dislocation of the left wrist.
[2024-12-26 09:10] LABS: Hematocrit 38.0 % (36.0-46.0); Hemoglobin 12.5 g/dL (12.2-16.2); Mean Corpuscular Hemoglobin 28.7 pg (28.0-32.0); Mean Corpuscular Volume 86.8 fL (80.0-100.0); Nucleated Red Blood Cells % 0.0 %
[2024-12-26 09:11] LABS: Chloride 101 mmol/L (98-107); Potassium 4.6 mmol/L (3.5-5.1)
[2024-12-26 09:12] LABS: Anion Gap 8 (5-15); Calcium 10.0 mg/dL (8.7-10.4); Carbon Dioxide 26 mmol/L (20-31)
[2024-12-26 09:17] LABS: BUN/Creatinine Ratio 17.6 (10.0-20.0)
[2024-12-26 09:24] LABS: Blood Urea Nitrogen 42 mg/dL (9-23); Glucose 299 mg/dL (74-106); Sodium 135 mmol/L (136-145)
[2024-12-26] MEDS: CEFEPIME 1GM/ 50ML 50 ML IV SCH (09:25)
[2024-12-26 10:16] LABS: Hepatitis B Surface Antigen Negative (Negative)
--- NOTE | 2024-12-26 10:22 | DVHPN2 ---
Progress Note Date Seen: Dec 26, 2024 Medical Necessity Reason Pt with a Central, PICC or Fol: No Subjective Patient reports: Feels better Objective vital signs Vital Sign Date Time Temp Pulse Resp B/P (MAP) Pulse Ox O2 Delivery O2 Flow Rate FiO2 12/26/24 09:00 98.0 81 16 130/77 (94) 94 98.0 12/25/24 20:00 Nasal Cannula* 4 36 Total Intake and Output 12/25/24 12/25/24 12/26/24 15:00 23:00 07:00 Intake Total 3950 ml 200 ml 1800 ml Output Total 1000 ml 650 ml Balance 2950 ml 200 ml 1150 ml medications Current Medications Medications Dose Ordered Sig/Rolly Route Start Time Stop Time Status Last Admin Dose Admin Cefepime HCl 50 ml @ 12.5 mls/hr DAILY IV 12/26/24 10:00 12/26/24 09:25 12.5 MLS/HR Patient Own Medication 100 mg TID PO 12/25/24 22:00 Fluoxetine HCl 20 mg DAILY PO 12/26/24 10:00 12/26/24 09:25 20 MG Lacosamide 50 mg BID PO 12/25/24 22:00 12/26/24 10:08 50 MG Atorvastatin Calcium 40 mg HS PO 12/25/24 22:00 12/25/24 20:59 40 MG Lorazepam 1 mg Q5MINP PRN IV 12/25/24 15:00 Diagnostic Test (Pha) 1 strip ACHS 12/25/24 17:00 12/26/24 06:10 1 STRIP Insulin Human Regular ACHS SC 12/25/24 17:00 12/26/24 06:19 8 UNITS Dextrose 50 ml UD PRN IV 12/25/24 15:00 Ondansetron HCl 4 mg Q4HP PRN IV 12/25/24 15:00 Acetaminophen 650 mg Q6HP PRN PO 12/25/24 15:00 Nitroglycerin 0.4 mg Q5MINP PRN SL 12/25/24 15:00 Morphine Sulfate 2 mg Q30M PRN IV 12/25/24 15:00 Hold Sodium Chloride 1,000 ml @ 60 mls/hr [id number] IV 12/25/24 16:30 12/26/24 09:25 60 MLS/HR Lorazepam 1 mg Q8HP PRN IV 12/26/24 02:00 12/26/24 04:24 1 MG Insulin Glargine 15 units QAM SC 12/26/24 09:45 UNV Examination: GENERAL:Normal, CVS:Normal, ABDOMEN:Normal laboratory and microbiology Laboratory Tests 12/26/24 08:36 Test 12/26/24 08:36 Range/Units Serum Glucose 299 H 74-106 mg/dL Problem List/Assessment/Plan Problem List/Assessment/Plan 49-year-old white female past medical history of chronic kidney disease three and depression anxiety on medications presents to the hospital after unresponsiveness and possible seizure disorder. She is admitted for this reason. Nephrology consulted due to acute kidney injury. Acute kidney injury hemodynamically mediated in the setting of volume depletion reports nausea vomiting diarrhea Chronic kidney disease stage IIIA Dr. Herrera Depression anxiety on neuroleptics Hypertension Diabetes Tremors and possible seizure disorder Lupus on hydroxychloroquine FARHAN improving, Agree with IV fluid hydration P.o. as tolerated We will send urine and serologies , will also send hepatitis serologies Plan discussed with: Patient My Orders My Orders Orders - KELLI COELHO MD Procedure Category Date Status Time Sodium Chloride 0.9% PHA 12/25/24 In Process 16:30 Romelia; Comprehensive LAB 12/26/24 In Process Panel 04:00 Anti-Dsdna Antibody LAB 12/26/24 In Process 04:00 Complement C3 & C4 LAB 12/26/24 In Process 04:00 Acute Hepatitis Panel LAB 12/26/24 In Process 04:00 Anca Panel LAB 12/26/24 In Process 04:00 Sepsis reassessment post fluid Is the fluid challenge complet: Yes Date of Reassessment: Dec 25, 2024 Time of Reassessment: 1330 Blood Culture Time: 1205 Time Antibiotics Given: 1211 Systolic BP: 103 Diastolic BP: 55 Blood Pressure Mean: 71 Respiration: 12 Respiratory Effort: Non-Labored Respiratory Pattern: Regular Oxygen Saturation: 99 Pulse Rate: 88 Pulse Location: Radial Pulse Strength: Normal Pulse Assessment Method: Palpation Pulse Rhythm: Regular Capillary Refill: < 3 seconds Heart Sounds: S1 & S2 Breath sounds: Clear Skin Moisture: Dry Skin Tugor: WNL Skin Color: WNL KELLI COELHO MD Dec 26, 2024 10:22
[2024-12-26 10:27] LABS: Hepatitis C Antibody Reactive (Negative)
--- NOTE | 2024-12-26 10:48 | DVH ---
CT CT AB PEL WO CON-NO ORAL OR IV INDICATION: Abdominal pain, diarrhea EXAM DATE: 12/26/2024 10:04 AM COMPARISON: None RADIATION DOSE: CTDIvol: 22.91 mGy, DLP: 1215.3 mGy*cm PROCEDURE: Helical CT images were obtained of the abdomen and pelvis without IV contrast Sagittal and coronal reconstructions are provided. ORAL CONTRAST: None. ADDITIONAL IMAGES / REFORMATS: None All C T scans at this medical facility are performed using dose modulation techniques as appropriate to a p erformed exam including the following: Automated exposure control was utilized; adjustment of the MA and/or KV according to patient size; and use of iterative reconstruction technique. FINDINGS: LUNG BASE: Normal. LIVER: Normal. GALLBLADDER AND BILIARY TREE: Caterina clips. No intra- or extrahepatic biliary ductal dilation. PANCREAS: Normal. SPLEEN: Normal. BOWEL: Normal. Normal appendix. ADRENALS: Normal. KIDNEYS AND URETER: Atrophic left kidney. BLADDER: Fuller. REPRODUCTIVE ORGANS: Absent uterus. LYMPH NODES:No lymphadenopathy. PERITONEUM: No ascites or free air. No other fluid collection. VESSELS: Scattered atherosclerotic calcifications are noted. RETROPERITONEUM: Normal. ABDOMINAL WALL: Normal. BONES: Scattered osseous degenerative changes are noted. IMPRESSION: No acute intraabdominal abnormality.
[2024-12-26] MEDS: ACETAMINOPHEN 325 MG TAB PO PRN (11:50)
[2024-12-26] MEDS: INSULIN LANTUS (GLARGINE) 1 /0.01ml (100units/ml) SC SCH ×2 (11:50→23:27)
[2024-12-26] MEDS ORDERED: MORPHINE SULFATE INJ 2 MG/ml SYRG IV PRN (13:00)
[2024-12-26] MEDS: GABAPENTIN 100 MG CAP PO SCH (13:52)
[2024-12-26] MEDS: HYDROcodone-ACET 10/325MG TAB PO PRN (13:52)
--- NOTE | 2024-12-26 14:58 | DVHPNRES ---
Progress Note Date Seen: Dec 26, 2024 Resident Creating Document: RIZWANA NOE RESIDENT Medical Necessity Reason Pt with a Central, PICC or Fol: No Subjective Review of Systems A 49-year-old female presents to the ED after experiencing a seizure episode. According to the patient, the seizure began suddenly in was characterized by loss of consciousness, lasting 5 minutes. After that, she found herself lying on the floor and EMS brought the patient to the ER. It was not associated with bladder or bowel incontinence or tongue biting. The patient was experiencing headache after the episode. She currently denies any chest pain, shortness of breath, fever, abdominal pain,nausea. vomiting or any other complaints. During her stay in the hospital, she went outside with her for smoking and had a fall which led her to right ankle fracture. Past medical history:Seizure, hypertension, rheumatoid arthritis, SLE not on steroids, diabetes mellitus Past surgical history: Carpal tunnel release, right ankle surgery, 3 sections, cholecystectomy, ulcer in the back Family history: Maternal aunt and cousin have seizure disorders. Smoking history: the patient started smoking when she was 12 years old and continued till now. She takes half pack a day. Drugs: Active marijuana use. Lives with family. The patient was seen and examined at the bedside. Overnight events were reviewed. Patient complained of ankle pain. Rest of the ROS is negative. Objective vital signs Vital Sign Date Time Temp Pulse Resp B/P (MAP) Pulse Ox O2 Delivery O2 Flow Rate FiO2 12/26/24 09:00 98.0 81 16 130/77 (94) 94 98.0 12/26/24 08:00 Room Air* 0 21 Total Intake and Output 12/25/24 12/25/24 12/26/24 15:00 23:00 07:00 Intake Total 3950 ml 200 ml 1800 ml Output Total 1000 ml 650 ml Balance 2950 ml 200 ml 1150 ml medications Current Medications Medications Dose Ordered Sig/Rolly Route Start Time Stop Time Status Last Admin Dose Admin Cefepime HCl 50 ml @ 12.5 mls/hr DAILY IV 12/26/24 10:00 Hold 12/26/24 09:25 12.5 MLS/HR Patient Own Medication 100 mg TID PO 12/25/24 22:00 Fluoxetine HCl 20 mg DAILY PO 12/26/24 10:00 12/26/24 09:25 20 MG Lacosamide 50 mg BID PO 12/25/24 22:00 12/26/24 10:08 50 MG Atorvastatin Calcium 40 mg HS PO 12/25/24 22:00 12/25/24 20:59 40 MG Lorazepam 1 mg Q5MINP PRN IV 12/25/24 15:00 Diagnostic Test (Pha) 1 strip ACHS 12/25/24 17:00 12/26/24 11:49 1 STRIP Insulin Human Regular ACHS SC 12/25/24 17:00 12/26/24 11:51 10 UNITS Dextrose 50 ml UD PRN IV 12/25/24 15:00 Ondansetron HCl 4 mg Q4HP PRN IV 12/25/24 15:00 Acetaminophen 650 mg Q6HP PRN PO 12/25/24 15:00 12/26/24 11:50 650 MG Nitroglycerin 0.4 mg Q5MINP PRN SL 12/25/24 15:00 Sodium Chloride 1,000 ml @ 60 mls/hr [id number] IV 12/25/24 16:30 12/26/24 09:25 60 MLS/HR Lorazepam 1 mg Q8HP PRN IV 12/26/24 02:00 12/26/24 04:24 1 MG Insulin Glargine 20 units QAM SC 12/27/24 07:00 Insulin Glargine 15 units HS SC 12/26/24 22:00 Morphine Sulfate 1 mg Q6HP PRN IV 12/26/24 13:00 Hold Acetaminophen/ Hydrocodone Bitart 1 tab Q8HP PRN PO 12/26/24 13:00 Hold 12/26/24 13:52 1 TAB Gabapentin 200 mg TID PO 12/26/24 14:00 12/26/24 13:52 200 MG Examination Pt is lying on bed General Appearance: Alert, Oriented X3, Cooperative, Mild distress HEENT: Atraumatic, Mucous membranes moist/pink Respiratory: Clear to auscultation, Normal air movement, No added sounds Cardiovascular: Regular rate, Normal S1, Normal S2, No murmurs Abdominal/ : Active bowel sounds, Soft, no distention, no tenderness Extremities: No edema, Normal pulses, tenderness the right medial malleolus Skin: No Significant rash, except past surgical scars Neuro: Normal speech, sensorimotor deficits none Psych/Mental Status: Mental status NL, Mood NL Nurse was there as major general during examination Examination: GENERAL:Normal laboratory and microbiology Laboratory Tests 12/26/24 08:36 Test 12/26/24 08:36 Range/Units Serum Glucose 299 H 74-106 mg/dL Microbiology Date/Time Source Procedure Growth Status 12/25/24 12:00 Blood Blood Culture - Preliminary NO GROWTH AFTER 24 HOURS OF INCUBATION. Resulted Labs and/or images reviewed: Labs reviewed by me, Image(s) reviewed by me (RN) Problem List/Assessment/Plan Problem List/Assessment/Plan # Generalized tonic-clonic seizures # Hx of Seizure disorder # History of recurrent falls; the patient had a fall in the parking lot of the hospital while smoking with her against medical advice -Lacosamide and Ativan p.r.n. -Seizure precautions -Neuro consult Cervical CT scan: 1. No evidence of acute cervical spine fracture or traumatic malalignment. Head CT: No acute intracranial abnormality. CT abdomen pelvis: No acute intraabdominal abnormality. Right ankle x-ray: Medial malleolus fracture; unclear if it is caused by the fall in the hospital or it is from falling before admission to the hospital CXR: No acute abnormalities Left wrist x-ray: No fracture is identified. # Acute kidney injury likely VMN on CKD IIIA- improving - nephrology on board - monitor lab - IVF - avoid nephrotoxic agents -Electrolyte replacement as needed # Diarrhea/ rule out gastroenteritis- ordered stool studies, pending, CT no acute findings # Depression anxiety on neuroleptics - no suicidal or homicidal ideations - resume home meds # Type 2 Diabetes, uncontrolled with a hyperglycemia # morbid obesity -HbA1c 10.4 -Monitor blood glucose closely. Diabetic diet. -Insulin Lantus 20 b.i.d. -counseled the patient on the importance of adopting healthy lifestyle with diet and exercise in order to lose weight # Hx of RA- outpatient follow up # uses walker - fall precautions # polysubstance use disorder including marijuana and tobacco -declined nicotine patch -counseled on marijuana and tobacco use cessation for 22 minutes including 12 minutes for tobacco use cessation GI prophylaxis: Not indicated DVT prophylaxis: Not indicated Diet: Diabetic Goals of care discussed with the patient for 20 minutes: Full code status Case discussed with Dr. Oliva, patient and RN Plan discussed with: Patient, Other (RN) Sepsis reassessment post fluid Is the fluid challenge complet: Yes Date of Reassessment: Dec 25, 2024 Time of Reassessment: 1330 Blood Culture Time: 1205 Time Antibiotics Given: 1211 Systolic BP: 103 Diastolic BP: 55 Blood Pressure Mean: 71 Respiration: 12 Respiratory Effort: Non-Labored Respiratory Pattern: Regular Oxygen Saturation: 99 Pulse Rate: 88 Pulse Location: Radial Pulse Strength: Normal Pulse Assessment Method: Palpation Pulse Rhythm: Regular Capillary Refill: < 3 seconds Heart Sounds: S1 & S2 Breath sounds: Clear Skin Moisture: Dry Skin Tugor: WNL Skin Color: WNL Addendum Addendum Addendum I was physically present for the jeffers portions of the service provided to patient by THE RESIDENT. I have reviewed the documentation, discussed the case with resident and agree with the resident's documentation except as noted. Also the patient's clinical case was discussed with the patient's nurse. This medical document was created using an electronic medical record system with computerized dictation system. Although this document has been carefully reviewed, there might still be some phonetic and typographical errors. These areas are purely typographical due to imperfections of the software programs, and do not reflect any compromise in the patient's medical care. Late signature. Date of Service: Dec 26, 2024 Billing Provider: TOM OLIVA MD Common Visit Codes: [id number] INP/OBS CARE(HIGH) Secondary Visit Codes: [id number] CHNG SMOKING >10MIN (counseled on marijuana and tobacco use cessation for 22 minutes including 12 minutes for tobacco use cessation), [id number] CARE PLAN 30 MINUTES (20 minutes) RIZWANA NOE RESIDENT Dec 26, 2024 14:58 KRISTINA ARIAS RESIDENT Dec 26, 2024 18:05 TOM OLIVA MD Dec 27, 2024 12:52
[2024-12-26 17:45] LABS: COVID19 ANTIGEN SOFIA FIA NEGATIVE (NEGATIVE)
[2024-12-26] MEDS: IPRATROPIUM BROM 0.5 MG/2.5ML INH SOL NEB SCH (18:49)
[2024-12-26] MEDS: ALBUTEROL SULF 2.5 MG/0.5ML(0.5%) NEB SOLN NEB SCH (18:49)
--- NOTE | 2024-12-26 22:15 | DVHINCON2 ---
Date of service: Dec 26, 2024 Referring Physician Rishi Reason for Consultation Seizure History of Present Illness Ms. Prieto is a right-handed female with a history of hypertension, diabetes, depression, SLE, rheumatoid arthritis, obesity, she came to the [facility] on 12[facility]25[facility]24 with a chief complaint of seizure activity. At this time, she is alert and fully oriented, she provided the following history She has seizure disorder since 2019, with company amnesia, she was told to have generalized convulsion with complete nonresponsiveness during the seizure. She had 3 seizures over 4 days before she came to the hospital. She is on Xcopri 100 mg a.m., 200 mg HS, Trileptal 600 mg b.i.d. 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, she has a fall (not seizure related) when she was o ut for smoking, with resultant right ankle fracture One day on 10/2024-11/2024, she sustained left foot injury in the seizure activity, x-ray in the [facility] showed evidence of fracture Since beginning of 2024, she has weakness in the left hand, Valerie's reports pain in the neck, because of claustrophobia, she has not had MRI obtained Hepatic panel, 12/26/2024: Hepatitis-C antibody Urinalysis, 12/25/2024: Cannabinoids Urinalysis, 12/25/2024: No UTI CBC, 12/26/2024: Unremarkable BUN/CR, 12/26/2024: 42/2.38 HGB A1c, 12/26/2024: 10.4 Lactic acid, 12/25 25:2.5, two TSH, 12/26/2024: 1 X-ray, right ankle, 12/26/2024: Medial malleolus fracture.The visualized joint space is well maintained. The alignment is anatomical. There is no radiopaque foreign body. CT head, 12/25/2024: No acute intracranial abnormality Past Medical History Hypertension, rheumatoid arthritis, SLE depression, obesity Past Surgical History , right ankle surgery, right carpal tunnel release, cholecystectomy, hysterectomy Family History: Alzheimer's disease grandpa Cardiovascular disease grandpa Cerebrovascular accident (CVA) grandpa Chronic obstructive pulmonary disease G8 MOTHER Depression G8 MOTHER Diabetes mellitus grandpa FH: cancer FH: schizophrenia Hypertension grandpa Family History Hypertension, diabetes, dyslipidemia, stroke, seizure, mental illness Social History She smoke, but no history of drug or alcohol abuse Allergies: Coded Allergies: Codeine (Verified Allergy, Unknown, itching, 12/26/24) not from [employer] [facility] [employer] per patient Morphine (Verified Allergy, Unknown, 12/25/24) Penicillins (Verified Allergy, Unknown, 12/25/24) Home Meds Reported Medications Insulin Lispro (Insulin Lispro) 100 Unit/Ml Inj, 100 UNIT IJ, INJ 12/25/24 Oxcarbazepine (OXTELLAR XR) 150 Mg Tab, 150 MG PO BID, TAB 12/25/24 Temazepam (Restoril) 15 Mg Cp, 1 CAP PO QPM, #30 CAP 1 Refill 12/25/24 Oxcarbazepine (Trileptal) 600 Mg Tab, 600 MG PO BID for seizure, TAB 12/25/24 Valsartan-Hydrochlorothiazide (Diovan Hct) 160 /12.5 Tab, 1 TAB PO DAILY, #30 TAB 5 Refills 12/25/24 Baclofen (Baclofen) 10 Mg Tab, 10 MG PO BID, MG 12/25/24 Lorazepam (Lorazepam) 1 Mg Tab, 1 MG PO DAILY, TAB 12/25/24 Quetiapine Fumerate (Seroquel) 25 Mg Tab, 25 MG PO for anxiety for 30 Days, MG 12/25/24 Fluoxetine Hcl (Fluoxetine Hcl) 20 Mg Cap, 20 MG PO DAILY, MG 12/25/24 Hydroxychloroquine Sulfate (Hydroxychloroquine Sulfat) 200 Mg Tab, 200 MG PO BID for lupus , MG 12/25/24 Quetiapine Fumerate (Seroquel) 50 Mg Tab, 800 MG PO DAILY@DINNER for 30 Days, MG 12/25/24 Hydrocodone-Acetaminophen (Hydrocodone Bitartrate/AC 10-325 mg) 1 Tab Tab, 1 TAB PO TID, TAB 12/25/24 Gabapentin (Gabapentin) 300 Mg Cap, 300 MG PO TID, MG 12/25/24 Current Medications Current Medications Medications (Trade) Dose Ordered Sig/Rolly Route PRN Reason Start Time Stop Time Status Last Admin Cefepime HCl 50 ml @ 12.5 mls/hr DAILY IV 12/26/24 10:00 Hold 12/26/24 09:25 Patient Own Medication 100 mg TID PO 12/25/24 22:00 Fluoxetine HCl (PROzac CAPSULE) 20 mg DAILY PO 12/26/24 10:00 12/26/24 09:25 Furosemide (Lasix Tablet) 20 mg QAM PO 12/26/24 07:00 12/25/24 16:19 DC Lacosamide (Vimpat) 50 mg BID PO 12/25/24 22:00 12/26/24 20:39 Atorvastatin Calcium (Lipitor) 40 mg HS PO 12/25/24 22:00 12/26/24 20:39 Lorazepam (Ativan Inj) 1 mg Q8HP PRN IV ANXIETY 12/26/24 02:00 12/26/24 21:31 Insulin Glargine (Lantus) 15 units QAM SC 12/26/24 09:45 12/26/24 12:41 DC 12/26/24 11:50 Insulin Glargine (Lantus) 20 units QAM SC 12/27/24 07:00 Insulin Glargine (Lantus) 15 units HS SC 12/26/24 22:00 Morphine Sulfate 1 mg Q6HP PRN IV SEVERE PAIN (7-10 PAIN SCALE) 12/26/24 13:00 Hold Acetaminophen/ Hydrocodone Bitart (Imboden 10/325MG Tab) 1 tab Q8HP PRN PO MODERATE PAIN (4-6 PAIN SCALE) 12/26/24 13:00 12/26/24 13:52 Gabapentin (Neurontin Capsule) 200 mg TID PO 12/26/24 14:00 12/26/24 20:39 Albuterol (Ventolin Medneb) 2.5 mg Q6HWA NEB 12/26/24 18:00 12/26/24 18:49 Ipratropium [place] (Atrovent Medneb) 0.5 mg Q4HWA NEB 12/26/24 18:00 12/26/24 18:49 Review of Systems As above, the other systems are negative Vital Signs Vital Signs Date Time Temp Pulse Resp B/P (MAP) Pulse Ox O2 Delivery O2 Flow Rate FiO2 12/26/24 18:56 86 16 100 12/26/24 18:50 Room Air 0.0 12/26/24 18:50 21 12/26/24 17:09 98.2 137/80 (99) 98.2 Physical Exam GENERAL EXAM: General: the patient is well developed and nourished. No acute distress. HEENT: Normocephalic, neck is supple, no carotid bruits. No mass. RESPIRATORY: Normal respiratory effort with symmetrical lung expansion. Lungs clear to auscultation. CARDIOVASCULAR: Regular rate and rhythm with no murmurs. S1, S2. ABDOMEN: Soft, nontender, normal bowel sound NEUROLOGICAL: MENTAL STATUS: Awake and alert. Oriented to person, place, time and general circumstances. Able to give personal history. SPEECH, LANGUAGE, HIGHER CORTICAL FUNCTION: no aphasia or dysathria. CRANIAL NERVES: #2: Intact visual richardson to confrontation #3,4,6: Pupils are equal, round and reactive. EOMs full and conjugate. . #5: Facial sensation intact in all three divisions bilaterally. Mandibular strength intact. #7: Facial muscles symmetrical and strength intact. #8: Hearing grossly normal to voice. #9,10: Uvula and soft palate rise in the midline. Swallow and voice are normal. #11: Trapezius and sternomastoid strength intact bilaterally. #12: Tongue midline. No fasciculations or atrophy. SENSATION: Sensation to touch and pinprick is normal. MOTOR: Normal tone in the upper and lower extremity. Normal muscle bulk. No fasciculations. No abnormal movements or posturing. Muscle strength of the major groups in the extremities is 5/5 except for left grippin/5 REFLEXES: Deep tendon reflexes are symmetrical. No pathological reflexes. CEREBELLAR/COORDINATION: Finger to nose is normal bilaterally. GAIT/STATION: deferred. Labs/Diagnostic Data Labs Test 12/26/24 20:42 12/26/24 16:00 12/26/24 12:39 12/26/24 09:41 Range/Units POC Glucose 233 H 70-106 mg/dl Influenza Type A Antigen Negative Negative Influenza Type B Antigen Negative Negative SARS-CoV-2 Antigen (Rapid) Negative NEGATIVE Prolactin 3.97 2.8-29.2 ng/mL Hemoglobin A1c 10.4 H <5.7 % A1C Magnesium Level 1.6 1.6-2.6 mg/dL Thyroid Stimulating Hormone (TSH) 1.00 0.55-4.78 uIU/mL Test 12/26/24 08:36 12/25/24 12:19 12/25/24 12:12 12/25/24 10:50 Range/Units White Blood Count 9.3 # 4.4-10.8 10^3/uL Red Blood Count 4.38 4.0-5.20 10^6/uL Hemoglobin 12.5 12.2-16.2 g/dL Hematocrit 38.0 36.0-46.0 % Mean Corpuscular Volume 86.8 80.0-100.0 fL Mean Corpuscular Hemoglobin 28.7 28.0-32.0 pg Mean Corpuscular Hemoglobin Concent 33.0 32.0-36.0 g/dL Red Cell Distribution Width 15.0 H 11.8-14.3 % Platelet Count 106 L 140-450 10^3/uL Mean Platelet Volume 9.8 6.9-10.8 fL Neutrophils (%) (Auto) 76.5 37.0-80.0 % Lymphocytes (%) (Auto) 17.6 10.0-50.0 % Monocytes (%) (Auto) 4.0 0.0-12.0 % Eosinophils (%) (Auto) 1.2 0.0-7.0 % Basophils (%) (Auto) 0.7 0.0-2.0 % Neutrophils # (Auto) 7.1 1.6-8.6 10 ^3/uL Lymphocytes # (Auto) 1.6 0.4-5.4 10 ^3/uL Monocytes # (Auto) 0.4 0-1.3 10 ^3/uL Eosinophils # (Auto) 0.1 0-0.8 10 ^3/uL Basophils # (Auto) 0.1 0-0.2 10 ^3/uL Nucleated Red Blood Cells 0.0 % Erythrocyte Sedimentation Rate 28 H 0-20 mm/hr Sodium Level 135 L 136-145 mmol/L Potassium Level 4.6 3.5-5.1 mmol/L Chloride Level 101 98-107 mmol/L Carbon Dioxide Level 26 20-31 mmol/L Anion Gap 8 5-15 Blood Urea Nitrogen 42 #H 9-23 mg/dL Creatinine 2.38 #H 0.550-1.02 mg/dL Glomerular Filtration Rate Calc 24 >90 mL/min BUN/Creatinine Ratio 17.6 10.0-20.0 Serum Glucose 299 H 74-106 mg/dL Calcium Level 10.0 8.7-10.4 mg/dL Hepatitis A IgM Antibody Negative Hepatitis B Surface Antigen Negative Negative Hepatitis B Core IgM Antibody Negative Negative Hepatitis C Antibody Reactive *A Negative Prothrombin Time 10.5 9.3-11.8 sec Prothrombin Time INR 0.99 0.9-1.15 Activated Partial Thromboplast Time 22.0 L 24.5-34.5 SEC Lactic Acid Level 2.0 0.4-2.0 mmol/L Urine Color Yellow Yellow Urine Clarity Clear Clear Urine pH 5.5 5.0-9.0 Urine Specific Superior 1.016 1.001-1.035 Urine Protein 2+ H Negative Urine Ketones Negative Negative Urine Blood Negative Negative /uL Urine Nitrite Negative Negative Urine Bilirubin Negative Negative Urine Urobilinogen Normal Negative mg/dL Urine Leukocyte Esterase Negative Negative /uL Urine RBC <1 0 - 4 /hpf Urine Microscopic WBC 1 0-5 /HPF Urine Squamous Epithelial Cells Few <5 /hpf Urine Bacteria None seen None Seen /hpf Urine Hyaline Casts Few 0 - 2 /lpf Urine Creatinine 138.14 H 30.0-125.0 mg/dL Urine Protein/Creatinine Ratio 1.76 Urine Glucose 3+ H Normal mg/dL Urine Total Protein 243.8 H 1-14 mg/dL Urine Opiates Screen Neg NEGATIVE Urine Fentanyl Screen Neg NEGATIVE Urine Barbiturates Screen Neg NEGATIVE Urine Phencyclidine Screen Neg NEGATIVE Urine Amphetamines Screen Neg NEGATIVE Urine Benzodiazepines Screen Neg NEGATIVE Urine Cocaine Screen Neg NEGATIVE Urine Cannabinoids Screen Pos NEGATIVE Total Bilirubin 0.3 0.2-1.0 mg/dL Aspartate Amino Transferase (AST) 33 13-40 U/L Alanine Aminotransferase (ALT) 38 7-40 U/L Alkaline Phosphatase 144 H 46-116 U/L Troponin I High Sensitivity < 3 L </=34 ng/L Total Protein 7.4 5.7-8.2 g/dL Albumin 4.3 3.2-4.8 g/dL Microbiology Date/Time Source Procedure Growth Status 12/25/24 12:00 Blood Blood Culture - Preliminary NO GROWTH AFTER 24 HOURS OF INCUBATION. Resulted Assessment Grand mal seizure Left hand weakness Rule out cerebral disorder Rule out cervical spine radiculopathy Plan/Recommendation Monitoring Supportive treatment Telemetry MRI brain scan MRI cervical spine scan Trileptal 600 mg b.i.d. Increase Xcopri to 150mg AM, 200mg HS Lorazepam for seizure breakthrough More recommendation per clinical course Prognosis: Poor This medical document was created using an electronic medical record system with ie[employer] dictation system. Although this document has been carefully reviewed, there may still be some phonetic and typographical errors. These areas are purely typographical due to imperfections of the software programs, and do not reflect any compromise in the patient's medical care. Plan discussed with: Patient, Other NELLY JONES MD Dec 26, 2024 22:15
[2024-12-27] VITALS (15 sets, daily range): BP systolic 97–145; BP diastolic 59–93; PULSE 69–88; RESP 16–18; TEMP 96.6–98.3; O2SAT 91–100
[2024-12-27] MEDS: INSULIN LANTUS (GLARGINE) 1 /0.01ml (100units/ml) SC SCH (06:12)
[2024-12-27] MEDS: ALBUTEROL SULF 2.5 MG/0.5ML(0.5%) NEB SOLN NEB SCH (06:25)
[2024-12-27] MEDS: XCOPRI PO SCH (07:00)
[2024-12-27 07:28] LABS: Hematocrit 32.6 % (36.0-46.0); Hemoglobin 11.2 g/dL (12.2-16.2); Mean Corpuscular Hemoglobin 30.0 pg (28.0-32.0); Mean Corpuscular Volume 87.5 fL (80.0-100.0); Nucleated Red Blood Cells % 0.1 %
[2024-12-27 07:37] LABS: Calcium 9.4 mg/dL (8.7-10.4); Chloride 99 mmol/L (98-107); Potassium 4.0 mmol/L (3.5-5.1)
[2024-12-27 07:38] LABS: Anion Gap 9 (5-15); Carbon Dioxide 25 mmol/L (20-31)
[2024-12-27 07:43] LABS: BUN/Creatinine Ratio 23.4 (10.0-20.0)
[2024-12-27 07:44] LABS: Blood Urea Nitrogen 36 mg/dL (9-23); Glucose 138 mg/dL (74-106); Sodium 133 mmol/L (136-145)
--- NOTE | 2024-12-27 11:08 | DVHPN2 ---
Progress Note Date Seen: Dec 27, 2024 Medical Necessity Reason Pt with a Central, PICC or Fol: No Subjective Patient reports: Feels better Objective vital signs Vital Sign Date Time Temp Pulse Resp B/P (MAP) Pulse Ox O2 Delivery O2 Flow Rate FiO2 12/27/24 09:00 96.6 78 16 110/64 (79) 91 96.6 12/27/24 06:25 Room Air* 0 21 Total Intake and Output 12/26/24 12/26/24 12/27/24 15:00 23:00 07:00 Intake Total 1200 ml 675 ml Output Total 700 ml Balance 500 ml 675 ml medications Current Medications Medications Dose Ordered Sig/Rolly Route Start Time Stop Time Status Last Admin Dose Admin Cefepime HCl 50 ml @ 12.5 mls/hr DAILY IV 12/26/24 10:00 Hold 12/26/24 09:25 12.5 MLS/HR Fluoxetine HCl 20 mg DAILY PO 12/26/24 10:00 12/27/24 10:24 20 MG Atorvastatin Calcium 40 mg HS PO 12/25/24 22:00 12/26/24 20:39 40 MG Lorazepam 1 mg Q5MINP PRN IV 12/25/24 15:00 Diagnostic Test (Pha) 1 strip ACHS 12/25/24 17:00 12/27/24 06:10 1 STRIP Insulin Human Regular ACHS SC 12/25/24 17:00 12/27/24 06:13 2 UNITS Dextrose 50 ml UD PRN IV 12/25/24 15:00 Ondansetron HCl 4 mg Q4HP PRN IV 12/25/24 15:00 Acetaminophen 650 mg Q6HP PRN PO 12/25/24 15:00 12/26/24 11:50 650 MG Nitroglycerin 0.4 mg Q5MINP PRN SL 12/25/24 15:00 Sodium Chloride 1,000 ml @ 60 mls/hr [id number] IV 12/25/24 16:30 12/26/24 09:25 60 MLS/HR Lorazepam 1 mg Q8HP PRN IV 12/26/24 02:00 12/27/24 06:02 1 MG Insulin Glargine 20 units QAM SC 12/27/24 07:00 12/27/24 06:12 20 UNITS Insulin Glargine 15 units HS SC 12/26/24 22:00 12/26/24 23:27 15 UNITS Morphine Sulfate 1 mg Q6HP PRN IV 12/26/24 13:00 Hold Acetaminophen/ Hydrocodone Bitart 1 tab Q8HP PRN PO 12/26/24 13:00 12/26/24 13:52 1 TAB Gabapentin 200 mg TID PO 12/26/24 14:00 12/27/24 06:03 200 MG Ipratropium [place] 0.5 mg Q4HWA [facility] 12/26/24 18:00 12/27/24 06:25 0.5 MG Patient Own Medication 150 mg QAM PO 12/26/24 23:00 Patient Own Medication 200 mg HS PO 12/27/24 22:00 Future hold Lorazepam 1 mg ONCE PRN IV 12/26/24 23:00 Albuterol 2.5 mg Q4HWA [facility] 12/27/24 06:00 12/27/24 06:25 2.5 MG Examination: GENERAL:Normal, CVS:Normal, SKIN:Normal laboratory and microbiology Laboratory Tests 12/27/24 06:53 Test 12/27/24 06:53 Range/Units Serum Glucose 138 H 74-106 mg/dL Microbiology Date/Time Source Procedure Growth Status 12/25/24 12:00 Blood Blood Culture - Preliminary NO GROWTH AFTER 24 HOURS OF INCUBATION. Resulted Problem List/Assessment/Plan Problem List/Assessment/Plan 49-year-old white female past medical history of chronic kidney disease three and depression anxiety on medications presents to the hospital after unresponsiveness and possible seizure disorder. She is admitted for this reason. Nephrology consulted due to acute kidney injury. Acute kidney injury hemodynamically mediated in the setting of volume depletion reports nausea vomiting diarrhea Chronic kidney disease stage IIIA Dr. Herrera Depression anxiety on neuroleptics Hypertension Diabetes Tremors and possible seizure disorder Lupus on hydroxychloroquine FARHAN improving, near baseline now Agree with IV fluid hydration , can dc if tolerates enough po serologies pending P.o. as tolerated pending MRI brain and neuro w/u Plan discussed with: Patient Dietary Evaluation Review Comments: 1) Martin 1 pk BID, Vit C 500mg BID, zinc sulfate 220mg BID x 10 days, MVI w/ minerals 1 tab daily 2) Refer Industrial Production Manager for diabetes education Expected Outcomes/Goals: To meet >75% estimated needs Fu 3-5 days Total Time (mins): 26 Sepsis reassessment post fluid Is the fluid challenge complet: Yes Date of Reassessment: Dec 25, 2024 Time of Reassessment: 1330 Blood Culture Time: 1205 Time Antibiotics Given: 1211 Systolic BP: 103 Diastolic BP: 55 Blood Pressure Mean: 71 Respiration: 12 Respiratory Effort: Non-Labored Respiratory Pattern: Regular Oxygen Saturation: 99 Pulse Rate: 88 Pulse Location: Radial Pulse Strength: Normal Pulse Assessment Method: Palpation Pulse Rhythm: Regular Capillary Refill: < 3 seconds Heart Sounds: S1 & S2 Breath sounds: Clear Skin Moisture: Dry Skin Tugor: WNL Skin Color: WNL KELLI COELHO MD Dec 27, 2024 11:08
[2024-12-27 12:07] LABS: Anti-Centromere B Antibody <0.2 AI (0.0-0.9); Anti-Jo-1 Antibody <0.2 AI (0.0-0.9); Anti-dsDNA Antibody 1 IU/mL (0-9); Antichromatin Antibody <0.2 AI (0.0-0.9); Antiscleroderma-70 Antibody <0.2 AI (0.0-0.9); Sjogren's Anti-SS-A Antibody 0.2 AI (0.0-0.9); Sjogren's Anti-SS-B Antibody <0.2 AI (0.0-0.9)
--- NOTE | 2024-12-27 15:24 | DVHPNRES ---
Progress Note Date Seen: Dec 27, 2024 Resident Creating Document: RIZWANA NOE Medical Necessity Reason Pt with a Central, PICC or Fol: No The following are medically ne: Baldwin Catheter Reason for baldwin catheter: Strict I&O Subjective Review of Systems A 49-year-old female presents to the ED after experiencing a seizure episode. According to the patient, the seizure began suddenly in was characterized by loss of consciousness, lasting 5 minutes. After that, she found herself lying on the floor and EMS brought the patient to the ER. It was not associated with bladder or bowel incontinence or tongue biting. The patient was experiencing headache after the episode. She currently denies any chest pain, shortness of breath, fever, abdominal pain,nausea. vomiting or any other complaints. During her stay in the hospital, due to history of smoking use patient was advised to take nicotine patch but she refused and she went outside with her for smoking and had a fall which led her to right ankle fracture. Past medical history:Seizure, hypertension, rheumatoid arthritis, SLE not on steroids, diabetes mellitus Past surgical history: Carpal tunnel release, right ankle surgery, 3 sections, cholecystectomy, ulcer in the back Family history: Maternal aunt and cousin have seizure disorders. Tobacco smoking history: the patient started smoking when she was 12 years old and continued till now. She smokes half pack a day. Drugs: Active marijuana use. Lives with family. 12/27 interval Events: The patient was seen and examined at the bedside. Overnight events were reviewed. Patient complained of ankle pain. Rest of the ROS is negative. Patient reports: Feels better Objective vital signs Vital Sign Date Time Temp Pulse Resp B/P (MAP) Pulse Ox O2 Delivery O2 Flow Rate FiO2 12/27/24 14:05 75 18 99 12/27/24 13:57 Room Air 12/27/24 13:57 0 21 12/27/24 12:55 98.3 133/86 (102) 98.3 Total Intake and Output 12/26/24 12/26/24 12/27/24 15:00 23:00 07:00 Intake Total 1200 ml 675 ml Output Total 700 ml Balance 500 ml 675 ml medications Current Medications Medications Dose Ordered Sig/Rolly Route Start Time Stop Time Status Last Admin Dose Admin Cefepime HCl 50 ml @ 12.5 mls/hr DAILY IV 12/26/24 10:00 Hold 12/26/24 09:25 12.5 MLS/HR Fluoxetine HCl 20 mg DAILY PO 12/26/24 10:00 12/27/24 10:24 20 MG Atorvastatin Calcium 40 mg HS PO 12/25/24 22:00 12/26/24 20:39 40 MG Lorazepam 1 mg Q5MINP PRN IV 12/25/24 15:00 Diagnostic Test (Pha) 1 strip ACHS 12/25/24 17:00 12/27/24 11:27 1 STRIP Insulin Human Regular ACHS SC 12/25/24 17:00 12/27/24 11:37 4 UNITS Dextrose 50 ml UD PRN IV 12/25/24 15:00 Ondansetron HCl 4 mg Q4HP PRN IV 12/25/24 15:00 Acetaminophen 650 mg Q6HP PRN PO 12/25/24 15:00 12/26/24 11:50 650 MG Nitroglycerin 0.4 mg Q5MINP PRN SL 12/25/24 15:00 Sodium Chloride 1,000 ml @ 60 mls/hr [id number] IV 12/25/24 16:30 12/26/24 09:25 60 MLS/HR Lorazepam 1 mg Q8HP PRN IV 12/26/24 02:00 12/27/24 06:02 1 MG Insulin Glargine 20 units QAM SC 12/27/24 07:00 12/27/24 06:12 20 UNITS Insulin Glargine 15 units HS SC 12/26/24 22:00 12/26/24 23:27 15 UNITS Morphine Sulfate 1 mg Q6HP PRN IV 12/26/24 13:00 Hold Acetaminophen/ Hydrocodone Bitart 1 tab Q8HP PRN PO 12/26/24 13:00 12/26/24 13:52 1 TAB Gabapentin 200 mg TID PO 12/26/24 14:00 12/27/24 14:06 200 MG Ipratropium [place] 0.5 mg Q4HWA [facility] 12/26/24 18:00 12/27/24 13:57 0.5 MG Patient Own Medication 150 mg QAM PO 12/26/24 23:00 Patient Own Medication 200 mg HS PO 12/27/24 22:00 Future hold Lorazepam 1 mg ONCE PRN IV 12/26/24 23:00 Albuterol 2.5 mg Q4HWA [facility] 12/27/24 06:00 12/27/24 13:57 2.5 MG Examination Pt is lying on bed General Appearance: Alert, Oriented X3, Cooperative, no distress HEENT: Atraumatic, Mucous membranes moist/pink Respiratory: Clear to auscultation, Normal air movement, No added sounds Cardiovascular: Regular rate, Normal S1, Normal S2, No murmurs Abdominal/ : Active bowel sounds, Soft, no distention, no tenderness Extremities: No edema, Normal pulses, right medial malleolus tenderness/swelling Skin: No Significant rash, except past surgical scars Neuro: Normal speech, sensorimotor deficits none Psych/Mental Status: Mental status NL, Mood NL Nurse was there as software engineering specialist during examination laboratory and microbiology Laboratory Tests 12/27/24 06:53 Test 12/27/24 06:53 Range/Units Serum Glucose 138 H 74-106 mg/dL Microbiology Date/Time Source Procedure Growth Status 12/25/24 12:00 Blood Blood Culture - Preliminary NO GROWTH AFTER 48 HOURS OF INCUBATION. Resulted Labs and/or images reviewed: Labs reviewed by me, Image(s) reviewed by me Problem List/Assessment/Plan Problem List/Assessment/Plan # Generalized tonic-clonic seizures # Hx of Seizure disorder # History of recurrent falls; the patient had a fall in the parking lot of the hospital while smoking with her against medical advice # Left hand weakness,? Rule out acute CVA -Lacosamide and Ativan p.r.n. -Seizure precautions -Neuro consult, advised to do MRI of brain and the cervical spine and changed the medical management as below -Trileptal 600 mg b.i.d. -Increase Xcopri (Cenobamate) to 150mg AM, 200mg HS -Lorazepam for seizure breakthrough IMAGING: Cervical CT scan: 1. No evidence of acute cervical spine fracture or traumatic malalignment. Head CT: No acute intracranial abnormality. CT abdomen pelvis: No acute intraabdominal abnormality. Right ankle x-ray: Medial malleolus fracture; unclear if it is caused by the fall in the hospital or it is from falling before admission to the hospital CXR: No acute abnormalities Left wrist x-ray: No fracture is identified. MRI brain: Pending Cervical spine MRI: Pending Seizures precautions # Acute kidney injury likely VMN on CKD IIIA- improving - nephrology on board - monitor lab - IVF - avoid nephrotoxic agents - Electrolyte replacement as needed # Diarrhea/ rule out gastroenteritis- ordered stool studies, pending, CT no acute findings # Depression anxiety on neuroleptics - no suicidal or homicidal ideations - resume home meds # Type 2 Diabetes, uncontrolled with a hyperglycemia # morbid obesity -HbA1c 10.4 -Monitor blood glucose closely. Diabetic diet. -Insulin Lantus 20 b.i.d. -counseled the patient on the importance of adopting healthy lifestyle with diet and exercise in order to lose weight # Hx of RA- outpatient follow up # uses walker - fall precautions # polysubstance use disorder including marijuana and tobacco -declined nicotine patch -counseled on marijuana and tobacco use cessation GI prophylaxis: Not indicated DVT prophylaxis: Lovenox Diet: Diabetic Case discussed with Dr. Oliva, patient and RN Plan discussed with: Patient, Spouse, Other (RN) Dietary Evaluation Review Comments: 1) Martin 1 pk BID, Vit C 500mg BID, zinc sulfate 220mg BID x 10 days, MVI w/ minerals 1 tab daily 2) Refer Nursing Coordinator for diabetes education Expected Outcomes/Goals: To meet >75% estimated needs Fu 3-5 days Sepsis reassessment post fluid Is the fluid challenge complet: Yes Date of Reassessment: Dec 25, 2024 Time of Reassessment: 1330 Blood Culture Time: 1205 Time Antibiotics Given: 1211 Systolic BP: 103 Diastolic BP: 55 Blood Pressure Mean: 71 Respiration: 12 Respiratory Effort: Non-Labored Respiratory Pattern: Regular Oxygen Saturation: 99 Pulse Rate: 88 Pulse Location: Radial Pulse Strength: Normal Pulse Assessment Method: Palpation Pulse Rhythm: Regular Capillary Refill: < 3 seconds Heart Sounds: S1 & S2 Breath sounds: Clear Skin Moisture: Dry Skin Tugor: WNL Skin Color: WNL Addendum Addendum Addendum I was physically present for the jeffers portions of the service provided to patient by THE RESIDENT. I have reviewed the documentation, discussed the case with resident and agree with the resident's documentation except as noted. Also the patient's clinical case was discussed with the patient's nurse. This medical document was created using an electronic medical record system with computerized dictation system. Although this document has been carefully reviewed, there might still be some phonetic and typographical errors. These areas are purely typographical due to imperfections of the software programs, and do not reflect any compromise in the patient's medical care. Late signature. Date of Service: Dec 27, 2024 Billing Provider: TOM OLIVA MD Common Visit Codes: [id number] INP/OBS CARE(HIGH) RIZWANA NOE RESIDENT Dec 27, 2024 15:24 KRISTINA ARIAS RESIDENT Dec 27, 2024 15:57 TOM OLIVA MD Dec 28, 2024 14:02
[2024-12-27 17:28] LABS: Hematocrit 37.9 % (36.0-46.0); Hemoglobin 12.7 g/dL (12.2-16.2); Mean Corpuscular Hemoglobin 29.2 pg (28.0-32.0); Mean Corpuscular Volume 86.9 fL (80.0-100.0); Nucleated Red Blood Cells % 0.0 %
[2024-12-27 17:32] LABS: Alanine Aminotransferase 38 U/L (7-40); Albumin 4.1 g/dL (3.2-4.8); Anion Gap 8 (5-15); BUN/Creatinine Ratio 21.2 (10.0-20.0); Calcium 9.9 mg/dL (8.7-10.4); Carbon Dioxide 25 mmol/L (20-31); Potassium 4.6 mmol/L (3.5-5.1); Total Protein 7.1 g/dL (5.7-8.2)
[2024-12-27] MEDS: CEFEPIME 1GM/ 50ML 50 ML IV SCH (17:49)
[2024-12-27 18:03] LABS: Alkaline Phosphatase 132 U/L (46-116); Bilirubin, Total 0.2 mg/dL (0.2-1.0); Blood Urea Nitrogen 32 mg/dL (9-23); Chloride 95 mmol/L (98-107); Glucose 231 mg/dL (74-106); Sodium 128 mmol/L (136-145)
[2024-12-27] MEDS: XCOPRI 200 MG PO SCH (22:00)
--- NOTE | 2024-12-27 23:32 | DVHPN2 ---
Progress Note - Dictate Date Seen: Dec 27, 2024 Medical Necessity Reason Pt with a Central, PICC or Fol: No Subjective MsBob Prieto is a right-handed female with a history of hypertension, diabetes, depression, SLE, rheumatoid arthritis, obesity, she came to the [facility] on 12/25/2024 with a chief complaint of seizure activity. I have seen and examined the patient, I have discussed with her nurse, she is alert and oriented x3, but she has a lot of anxiety, Ativan 1 mg Q 8 hours p.r.n. is inadequate Her did not bring her Xcopri to the hospital, and I brought two titration packs for her She wants the MRI as outpatient, but as discussing, she agreed to try to get tomorrow Hepatic panel, 12/26/2024: Hepatitis-C antibody Urinalysis, 12/25/2024: Cannabinoids Urinalysis, 12/25/2024: No UTI CBC, 12/26/2024: Unremarkable BUN/CR, 12/26/2024: 42/2.38 HGB A1c, 12/26/2024: 10.4 Lactic acid, 12/25 25:2.5, two TSH, 12/26/2024: 1 X-ray, right ankle, 12/26/2024: Medial malleolus fracture.The visualized joint space is well maintained. The alignment is anatomical. There is no radiopaque foreign body. CT head, 12/25/2024: No acute intracranial abnormality vital signs Vital Sign Date Time Temp Pulse Resp B/P (MAP) Pulse Ox O2 Delivery O2 Flow Rate FiO2 12/27/24 22:20 78 16 100 12/27/24 22:15 Room Air* 0 21 12/27/24 21:00 98.0 106/65 (79) 98.0 Total Intake and Output 12/26/24 12/26/24 12/27/24 15:00 23:00 07:00 Intake Total 1200 ml 675 ml Output Total 700 ml Balance 500 ml 675 ml medications Current Medications Medications Dose Ordered Sig/Rolly Route Start Time Stop Time Status Last Admin Dose Admin Fluoxetine HCl 20 mg DAILY PO 12/26/24 10:00 12/27/24 10:24 20 MG Atorvastatin Calcium 40 mg HS PO 12/25/24 22:00 12/27/24 22:03 40 MG Lorazepam 1 mg Q5MINP PRN IV 12/25/24 15:00 Diagnostic Test (Pha) 1 strip ACHS 12/25/24 17:00 12/27/24 21:58 1 STRIP Insulin Human Regular ACHS SC 12/25/24 17:00 12/27/24 22:00 6 UNITS Dextrose 50 ml UD PRN IV 12/25/24 15:00 Ondansetron HCl 4 mg Q4HP PRN IV 12/25/24 15:00 Acetaminophen 650 mg Q6HP PRN PO 12/25/24 15:00 12/26/24 11:50 650 MG Nitroglycerin 0.4 mg Q5MINP PRN SL 12/25/24 15:00 Sodium Chloride 1,000 ml @ 60 mls/hr [id number] IV 12/25/24 16:30 12/26/24 09:25 60 MLS/HR Lorazepam 1 mg Q8HP PRN IV 12/26/24 02:00 12/27/24 17:58 1 MG Insulin Glargine 20 units QAM SC 12/27/24 07:00 12/27/24 06:12 20 UNITS Insulin Glargine 15 units HS SC 12/26/24 22:00 12/27/24 21:59 15 UNITS Morphine Sulfate 1 mg Q6HP PRN IV 12/26/24 13:00 Hold Acetaminophen/ Hydrocodone Bitart 1 tab Q8HP PRN PO 12/26/24 13:00 12/27/24 22:03 1 TAB Gabapentin 200 mg TID PO 12/26/24 14:00 12/27/24 22:03 200 MG Ipratropium [place] 0.5 mg Q4HWA [facility] 12/26/24 18:00 12/27/24 22:15 0.5 MG Patient Own Medication 150 mg QAM PO 12/26/24 23:00 Patient Own Medication 200 mg HS PO 12/27/24 22:00 Lorazepam 1 mg ONCE PRN IV 12/26/24 23:00 Albuterol 2.5 mg Q4HWA [facility] 12/27/24 06:00 12/27/24 22:15 2.5 MG Cefepime HCl 50 ml @ 12.5 mls/hr Q12H IV 12/27/24 18:00 12/27/24 17:49 12.5 MLS/HR objective General: the patient is well developed and nourished. No acute distress. MENTAL STATUS: Awake and alert. Oriented to person, place, time and general circumstances. Able to give personal history. SPEECH, LANGUAGE, HIGHER CORTICAL FUNCTION: no aphasia or dysathria. CRANIAL NERVES: Pupils are equal, round and reactive. EOMs full and conjugate. Facial sensation intact in all three divisions bilaterally. Mandibular strength intact. Facial muscles symmetrical and strength intact. SENSATION: Sensation to touch and pinprick is normal. MOTOR: Normal tone in the upper and lower extremity. Normal muscle bulk. No fasciculations. No abnormal movements or posturing. Muscle strength of the major groups in the extremities is 5/5 except for left grippin/5 REFLEXES: Deep tendon reflexes are symmetrical. No pathological reflexes. CEREBELLAR/COORDINATION: Finger to nose is normal bilaterally. GAIT/STATION: deferred. laboratory and microbiology Laboratory Tests 12/27/24 17:02 Test 12/27/24 17:02 Range/Units Serum Glucose 231 H 74-106 mg/dL Problem List Grand mal seizure Left hand weakness Rule out cerebral disorder Rule out cervical spine radiculopathy Assessment/Plan Monitoring Supportive treatment Telemetry MRI brain scan MRI cervical spine scan Trileptal 600 mg b.i.d. Increase Xcopri to 150mg AM, 200mg HS Lorazepam for seizure breakthrough More recommendation per clinical course This medical document was created using an electronic medical record system with [employer] dictation system. Although this document has been carefully reviewed, there may still be some phonetic and typographical errors. These areas are purely typographical due to imperfections of the software programs, and do not reflect any compromise in the patient's medical care. Prognosis poor Dietary Evaluation Review Comments: 1) Martin 1 pk BID, Vit C 500mg BID, zinc sulfate 220mg BID x 10 days, MVI w/ minerals 1 tab daily 2) Refer Electrical Journeyman for diabetes education Expected Outcomes/Goals: To meet >75% estimated needs Fu 3-5 days Plan discussed with: Patient, Other Is the fluid challenge complet: Yes Date of Reassessment: Dec 25, 2024 Time of Reassessment: 1330 Blood Culture Time: 1205 Time Antibiotics Given: 1211 Systolic BP: 103 Diastolic BP: 55 Blood Pressure Mean: 71 Respiration: 12 Respiratory Effort: Non-Labored Respiratory Pattern: Regular Oxygen Saturation: 99 Pulse Rate: 88 Pulse Location: Radial Pulse Strength: Normal Pulse Assessment Method: Palpation Pulse Rhythm: Regular Capillary Refill: < 3 seconds Heart Sounds: S1 & S2 Breath sounds: Clear Skin Moisture: Dry Skin Tugor: WNL Skin Color: WNL NELLY JONES MD Dec 27, 2024 23:32
[2024-12-28] VITALS (12 sets, daily range): BP systolic 115–169; BP diastolic 62–89; PULSE 78–97; RESP 16–20; TEMP 96.9–98.2; O2SAT 92–100
[2024-12-28] MEDS: LORazepam 2MG/ML-1ML VIAL IV ONE ×2 (00:32→12:10)
[2024-12-28 07:05] LABS: Anion Gap 8 (5-15); Carbon Dioxide 24 mmol/L (20-31); Chloride 98 mmol/L (98-107); Potassium 4.9 mmol/L (3.5-5.1)
[2024-12-28 07:06] LABS: Calcium 9.1 mg/dL (8.7-10.4)
[2024-12-28 07:11] LABS: BUN/Creatinine Ratio 30.4 (10.0-20.0)
[2024-12-28 07:33] LABS: Blood Urea Nitrogen 42 mg/dL (9-23); Glucose 148 mg/dL (74-106); Sodium 130 mmol/L (136-145)
--- NOTE | 2024-12-28 08:53 | DVHPN2 ---
Progress Note Date Seen: Dec 28, 2024 Medical Necessity Reason Pt with a Central, PICC or Fol: No Subjective Patient reports: Feels better Objective vital signs Vital Sign Date Time Temp Pulse Resp B/P (MAP) Pulse Ox O2 Delivery O2 Flow Rate FiO2 12/28/24 06:39 79 16 100 12/28/24 06:33 Room Air 0.0 12/28/24 06:33 21 12/28/24 05:00 98.2 123/76 (92) 98.2 Total Intake and Output 12/27/24 12/27/24 12/28/24 15:00 23:00 07:00 Intake Total 2450 ml 700 ml Balance 2450 ml 700 ml medications Current Medications Medications Dose Ordered Sig/Rolly Route Start Time Stop Time Status Last Admin Dose Admin Fluoxetine HCl 20 mg DAILY PO 12/26/24 10:00 12/27/24 10:24 20 MG Atorvastatin Calcium 40 mg HS PO 12/25/24 22:00 12/27/24 22:03 40 MG Lorazepam 1 mg Q5MINP PRN IV 12/25/24 15:00 Diagnostic Test (Pha) 1 strip ACHS 12/25/24 17:00 12/28/24 06:22 1 STRIP Insulin Human Regular ACHS SC 12/25/24 17:00 12/28/24 06:21 2 UNITS Dextrose 50 ml UD PRN IV 12/25/24 15:00 Ondansetron HCl 4 mg Q4HP PRN IV 12/25/24 15:00 Acetaminophen 650 mg Q6HP PRN PO 12/25/24 15:00 12/26/24 11:50 650 MG Nitroglycerin 0.4 mg Q5MINP PRN SL 12/25/24 15:00 Sodium Chloride 1,000 ml @ 60 mls/hr [id number] IV 12/25/24 16:30 12/26/24 09:25 60 MLS/HR Lorazepam 1 mg Q8HP PRN IV 12/26/24 02:00 12/28/24 03:20 1 MG Insulin Glargine 20 units QAM SC 12/27/24 07:00 12/28/24 06:21 20 UNITS Insulin Glargine 15 units HS SC 12/26/24 22:00 12/27/24 21:59 15 UNITS Morphine Sulfate 1 mg Q6HP PRN IV 12/26/24 13:00 Hold Acetaminophen/ Hydrocodone Bitart 1 tab Q8HP PRN PO 12/26/24 13:00 12/27/24 22:03 1 TAB Gabapentin 200 mg TID PO 12/26/24 14:00 12/28/24 05:34 200 MG Ipratropium [place] 0.5 mg Q4HWA [facility] 12/26/24 18:00 12/28/24 06:33 0.5 MG Patient Own Medication 150 mg QAM PO 12/26/24 23:00 12/28/24 06:25 150 MG Patient Own Medication 200 mg HS PO 12/27/24 22:00 12/28/24 00:34 200 MG Lorazepam 1 mg ONCE PRN IV 12/26/24 23:00 Albuterol 2.5 mg Q4HWA [facility] 12/27/24 06:00 12/28/24 06:33 2.5 MG Cefepime HCl 50 ml @ 12.5 mls/hr Q12H IV 12/27/24 18:00 12/28/24 05:33 12.5 MLS/HR Examination: GENERAL:Normal, CVS:Normal, ABDOMEN:Normal, NEURO:Abnormal laboratory and microbiology Laboratory Tests 12/28/24 06:07 12/27/24 17:02 Test 12/28/24 06:07 Range/Units Serum Glucose 148 H 74-106 mg/dL Microbiology Date/Time Source Procedure Growth Status 12/25/24 12:00 Blood Blood Culture - Preliminary NO GROWTH AFTER 48 HOURS OF INCUBATION. Resulted Problem List/Assessment/Plan Problem List/Assessment/Plan 49-year-old white female past medical history of chronic kidney disease three and depression anxiety on medications presents to the hospital after unresponsiveness and possible seizure disorder. She is admitted for this reason. Nephrology consulted due to acute kidney injury. Acute kidney injury hemodynamically mediated in the setting of volume depletion reports nausea vomiting diarrhea Chronic kidney disease stage IIIA Dr. Herrera Depression anxiety on neuroleptics Hypertension Diabetes Tremors and possible seizure disorder Lupus on hydroxychloroquine FARHAN improving, near baseline now encourage po serologies pending P.o. as tolerated pending MRI brain and neuro w/u Plan discussed with: Patient Dietary Evaluation Review Comments: 1) Martin 1 pk BID, Vit C 500mg BID, zinc sulfate 220mg BID x 10 days, MVI w/ minerals 1 tab daily 2) Refer Certified Surgical Technician for diabetes education Expected Outcomes/Goals: To meet >75% estimated needs Fu 3-5 days Total Time (mins): 33 Sepsis reassessment post fluid Is the fluid challenge complet: Yes Date of Reassessment: Dec 25, 2024 Time of Reassessment: 1330 Blood Culture Time: 1205 Time Antibiotics Given: 1211 Systolic BP: 103 Diastolic BP: 55 Blood Pressure Mean: 71 Respiration: 12 Respiratory Effort: Non-Labored Respiratory Pattern: Regular Oxygen Saturation: 99 Pulse Rate: 88 Pulse Location: Radial Pulse Strength: Normal Pulse Assessment Method: Palpation Pulse Rhythm: Regular Capillary Refill: < 3 seconds Heart Sounds: S1 & S2 Breath sounds: Clear Skin Moisture: Dry Skin Tugor: WNL Skin Color: WNL KELLI COELHO MD Dec 28, 2024 08:53
[2024-12-28] MEDS: LORazepam 2MG/ML-1ML VIAL IV PRN (11:45)
[2024-12-28] MEDS ORDERED: THIAMINE HCL 100 MG TAB PO ONE (12:15)
[2024-12-28] MEDS ORDERED: MULTIPLE VITAMIN TAB PO ONE (12:15)
[2024-12-28] MEDS ORDERED: FOLIC ACID 1 MG TAB PO ONE (12:15)
--- NOTE | 2024-12-28 14:02 | DVH ---
MRI BRAIN HEAD WO CONTRAST INDICATION: Left hand weakness EXAM DATE: 12/28/2024 12:23 PM COMPARISON: 12/25/24 PROCEDURE: Using a 1.5 Keely scanner, multisequence multiplanar imaging of the brain was obtained. FINDINGS: The brainshows normal morphology and signal characteristics. No abnormal T2 hyperintensity, diffusion restriction, or susceptibility hypointensity is present. The ventricles are normal in size . The midline structures are intact. The major intracranial flow voids are present. The aerated space s are normal. The orbital contents and extracranial soft tissues appear normal. IMPRESSION: Unremarkable MRI findings of the brain without acute abnormality.
--- NOTE | 2024-12-28 16:20 | DVHPNRES ---
Progress Note Date Seen: Dec 28, 2024 Resident Creating Document: SISSY STRONG Medical Necessity Reason Pt with a Central, PICC or Fol: No The following are medically ne: Baldwin Catheter Reason for baldwin catheter: Strict I&O Subjective Review of Systems A 49-year-old female presents to the ED after experiencing a seizure episode. According to the patient, the seizure began suddenly in was characterized by loss of consciousness, lasting 5 minutes. After that, she found herself lying on the floor and EMS brought the patient to the ER. It was not associated with bladder or bowel incontinence or tongue biting. The patient was experiencing headache after the episode. She currently denies any chest pain, shortness of breath, fever, abdominal pain,nausea. vomiting or any other complaints. During her stay in the hospital, due to history of smoking use patient was advised to take nicotine patch but she refused and she went outside with her for smoking and had a fall which led her to right ankle fracture. Past medical history:Seizure, hypertension, rheumatoid arthritis, SLE not on steroids, diabetes mellitus Past surgical history: Carpal tunnel release, right ankle surgery, 3 sections, cholecystectomy, ulcer in the back Family history: Maternal aunt and cousin have seizure disorders. Smoking history: the patient started smoking when she was 12 years old and continued till now. She takes half pack a day. Drugs: Active marijuana use. Lives with family. Patient was seen and examined by me at the bedside. Overnight events were reviewed. Patient reports feeling better today. An MRI was not done yesterday as she was not able to remove her piercings from the lips. Today nurse Maricarmen was able to help her remove it and MRI of the brain was done again with Ativan 1 mg as patient is claustrophobic. MRI results showed unremarkable findings of the brain without acute abnormality. Neck MRI is pending. Patient's was supposed to get Xcorpi medication from home to check her normal dose as she doesn't recall it, but patient is unsure if he will be able to get it. Rest of the ROS is negative Objective vital signs Vital Sign Date Time Temp Pulse Resp B/P (MAP) Pulse Ox O2 Delivery O2 Flow Rate FiO2 12/28/24 14:00 94 Room Air* 0 21 12/28/24 10:14 88 18 12/28/24 09:00 97.6 139/79 (99) 97.6 Total Intake and Output 12/27/24 12/27/24 12/28/24 15:00 23:00 07:00 Intake Total 2450 ml 700 ml Balance 2450 ml 700 ml medications Current Medications Medications Dose Ordered Sig/Rolly Route Start Time Stop Time Status Last Admin Dose Admin Fluoxetine HCl 20 mg DAILY PO 12/26/24 10:00 12/28/24 10:34 20 MG Atorvastatin Calcium 40 mg HS PO 12/25/24 22:00 12/27/24 22:03 40 MG Lorazepam 1 mg Q5MINP PRN IV 12/25/24 15:00 Diagnostic Test (Pha) 1 strip ACHS 12/25/24 17:00 12/28/24 11:34 1 STRIP Insulin Human Regular ACHS SC 12/25/24 17:00 12/28/24 11:47 3 UNITS Dextrose 50 ml UD PRN IV 12/25/24 15:00 Ondansetron HCl 4 mg Q4HP PRN IV 12/25/24 15:00 Acetaminophen 650 mg Q6HP PRN PO 12/25/24 15:00 12/26/24 11:50 650 MG Nitroglycerin 0.4 mg Q5MINP PRN SL 12/25/24 15:00 Lorazepam 1 mg Q8HP PRN IV 12/26/24 02:00 12/28/24 03:20 1 MG Insulin Glargine 20 units QAM SC 12/27/24 07:00 12/28/24 06:21 20 UNITS Insulin Glargine 15 units HS SC 12/26/24 22:00 12/27/24 21:59 15 UNITS Morphine Sulfate 1 mg Q6HP PRN IV 12/26/24 13:00 Hold Acetaminophen/ Hydrocodone Bitart 1 tab Q8HP PRN PO 12/26/24 13:00 12/27/24 22:03 1 TAB Gabapentin 200 mg TID PO 12/26/24 14:00 12/28/24 14:05 200 MG Ipratropium [place] 0.5 mg Q4HWA NEB 12/26/24 18:00 12/28/24 10:08 0.5 MG Patient Own Medication 150 mg QAM PO 12/26/24 23:00 12/28/24 06:25 150 MG Patient Own Medication 200 mg HS PO 12/27/24 22:00 12/28/24 00:34 200 MG Lorazepam 1 mg ONCE PRN IV 12/26/24 23:00 12/28/24 11:45 1 MG Albuterol 2.5 mg Q4HWA NEB 12/27/24 06:00 12/28/24 10:08 2.5 MG Cefepime HCl 50 ml @ 12.5 mls/hr Q12H IV 12/27/24 18:00 12/28/24 05:33 12.5 MLS/HR Oxcarbazepine 600 mg Q12HR PO 12/28/24 10:00 12/28/24 10:34 600 MG Examination Pt is lying on bed General Appearance: Alert, Oriented to place, person and time Cooperative, no acute distress HEENT: Atraumatic, Mucous membranes moist/pink Respiratory: Clear to auscultation, Normal air movement, No added sounds Cardiovascular: Regular rate, Normal S1, Normal S2, No murmurs Abdominal/ : Presence of active bowel sounds, Soft, no distention, no tenderness Extremities: No edema, Normal pulses, tenderness/swelling on right medial malleolus Skin: No significant rash, except past surgical scars Neuro: Normal speech, sensorimotor deficits none Psych/Mental Status: Mental status NL, Mood NL Nurse was there as retoucher photoengraving during examination laboratory and microbiology Laboratory Tests 12/28/24 06:07 12/27/24 17:02 Test 12/28/24 06:07 Range/Units Serum Glucose 148 H 74-106 mg/dL Microbiology Date/Time Source Procedure Growth Status 12/25/24 12:00 Blood Blood Culture - Preliminary NO GROWTH AFTER 72 HOURS OF INCUBATION. Resulted Labs and/or images reviewed: Labs reviewed by me, Image(s) reviewed by me Problem List/Assessment/Plan Problem List/Assessment/Plan # Generalized tonic-clonic seizures # Hx of Seizure disorder # History of recurrent falls; the patient had a fall in the parking lot of the hospital while smoking with her against medical advice # Left hand weakness,? Rule out acute CVA -Lacosamide and Ativan p.r.n. -Seizure precautions -Neuro consult, advised to do MRI of brain and the cervical spine and changed the medical management as below -Trileptal 600 mg b.i.d. -Increase Xcopri to 150mg AM, 200mg HS -Lorazepam for seizure breakthrough IMAGING: Cervical CT scan: No evidence of acute cervical spine fracture or traumatic malalignment. Head CT: No acute intracranial abnormality. CT abdomen pelvis: No acute intraabdominal abnormality. Right ankle x-ray: Medial malleolus fracture; unclear if it is caused by the fall in the hospital or it is from falling before admission to the hospital CXR: No acute abnormalities Left wrist x-ray: No fracture is identified. MRI brain under Ativan 1 mg: Unremarkable MRI findings of the brain without acute abnormality. Cervical spine MRI, Pending results # Acute kidney injury likely VMN on CKD IIIA- improving - nephrology on board - monitor lab - IVF - avoid nephrotoxic agents - Electrolyte replacement as needed # Diarrhea/ rule out gastroenteritis - ordered stool studies, pending, CT no acute findings # Depression anxiety on neuroleptics - no suicidal or homicidal ideations - resume home meds # Type 2 Diabetes, uncontrolled with a hyperglycemia # morbid obesity -HbA1c 10.4 -Monitor blood glucose closely -Diabetic diet. -Insulin Lantus 20 b.i.d. -counseled the patient on the importance of adopting healthy lifestyle with diet and exercise in order to lose weight # Hx of RA -outpatient follow up # uses walker - fall precautions # polysubstance use disorder including marijuana and tobacco -declined nicotine patch -counseled on marijuana and tobacco use cessation for 22 minutes including 12 minutes for tobacco use cessation GI prophylaxis: Not indicated DVT prophylaxis: Lovenox Diet: Diabetic diet Case discussed with Dr. Oliva, patient and RN Plan discussed with: Patient, Other (rn) My Orders My Orders Orders - SISSY STRONG RESIDENT Procedure Category Date Status Time Complete Blood Count LAB 12/29/24 Verified 04:00 Dietary Evaluation Review Comments: 1) Martin 1 pk BID, Vit C 500mg BID, zinc sulfate 220mg BID x 10 days, MVI w/ minerals 1 tab daily 2) Refer Anesthesiology Resident for diabetes education Expected Outcomes/Goals: To meet >75% estimated needs Fu 3-5 days Sepsis reassessment post fluid Is the fluid challenge complet: Yes Date of Reassessment: Dec 25, 2024 Time of Reassessment: 1330 Blood Culture Time: 1205 Time Antibiotics Given: 1211 Systolic BP: 103 Diastolic BP: 55 Blood Pressure Mean: 71 Respiration: 12 Respiratory Effort: Non-Labored Respiratory Pattern: Regular Oxygen Saturation: 99 Pulse Rate: 88 Pulse Location: Radial Pulse Strength: Normal Pulse Assessment Method: Palpation Pulse Rhythm: Regular Capillary Refill: < 3 seconds Heart Sounds: S1 & S2 Breath sounds: Clear Skin Moisture: Dry Skin Tugor: WNL Skin Color: WNL Addendum Addendum Addendum I was physically present for the jeffers portions of the service provided to patient by THE RESIDENT. I have reviewed the documentation, discussed the case with resident and agree with the resident's documentation except as noted. Also the patient's clinical case was discussed with the patient's nurse. This medical document was created using an electronic medical record system with computerized dictation system. Although this document has been carefully reviewed, there might still be some phonetic and typographical errors. These areas are purely typographical due to imperfections of the software programs, and do not reflect any compromise in the patient's medical care. Late signature. Date of Service: Dec 28, 2024 Billing Provider: TOM OLIVA MD Common Visit Codes: [id number] INP/OBS CARE(HIGH) SISSY STRONG RESIDENT Dec 28, 2024 16:20 TOM OLIVA MD Dec 29, 2024 09:35
--- NOTE | 2024-12-28 16:48 | DVH ---
PROCEDURE: MRI MRI NECK W OUT CONTRAST INDICATION: left hand weakness. Please scan the spinal cord EXAM DATE: 12/28/2024 12:38 PM COMPARISON: None TECHNIQUE: MRI cervical spine without intravenous contrast. FINDINGS: The cervical alignment is intact. The vertebral body heights are within normal limits. Mild STIR si gnal within the left C7-T1 facet is likely degenerative. Small intraosseous hemangioma versus focal m arrow fat in the T2 vertebral body. No suspicious marrow replacement. The visualized posterior fossa and craniocervical junction are intact. The intrinsic cervical cord signal appears intact. There is no prevertebral soft tissue swelling. The visualized paraspinal soft tissues are otherwise unremark able. The following axial levels are detailed below: C2-C3: No high-grade spinal canal or neural foraminal narrowing. C3-C4: No high-grade spinal canal or neural foraminal narrowing. C4-C5: No high-grade spinal canal or neural foraminal narrowing. C5-C6: Minimal disc osteophyte complex. No high-grade spinal canal narrowing. Moderate right neural foraminal narrowing. C6-C7: No high-grade spinal canal narrowing. Mild left neural foraminal narrowing. C7-T1: No high-grade spinal canal or neural foraminal narrowing. IMPRESSION: No high-grade spinal stenosis or cord compression. Moderate right neural foraminal narrowing at C5-C6.
[2024-12-28] MEDS ORDERED: [UNRECOGNIZED DRUG - CODE] PO (17:18)
[2024-12-28] MEDS ORDERED: [UNRECOGNIZED DRUG - CODE] PO (17:20)
[2024-12-28] MEDS ORDERED: CENO200T PO (17:20)
--- NOTE | 2024-12-28 22:53 | DVHPN2 ---
Progress Note - Dictate Date Seen: Dec 28, 2024 Medical Necessity Reason Pt with a Central, PICC or Fol: No The following are medically ne: Baldwin Catheter Reason for baldwin catheter: Strict I&O Subjective Ms. Prieto is a right-handed female with a history of hypertension, diabetes, depression, SLE, rheumatoid arthritis, obesity, she came [facility] the [facility] on 12[facility]25[facility]24 with a chief complaint of seizure activity. I have seen and examined the patient, I have discussed with her nurse, she is alert and oriented x3, her anxiety looks better today Hepatic panel, 12/26/2024: Hepatitis-C antibody Urinalysis, 12/25/2024: Cannabinoids Urinalysis, 12/25/2024: No UTI CBC, 12/26/2024: Unremarkable BUN/CR, 12/26/2024: 42/2.38 HGB A1c, 12/26/2024: 10.4 Lactic acid, 12/25 25:2.5, two TSH, 12/26/2024: 1 X-ray, right ankle, 12/26/2024: Medial malleolus fracture.The visualized joint space is well maintained. The alignment is anatomical. There is no radiopaque foreign body. CT head, 12/25/2024: No acute intracranial abnormality MRI head, 12/28/2024:Unremarkable MRI findings of the brain without acute abnormality. MRI C-spine, 12/28/2024: No high-grade spinal stenosis or cord compression. Moderate right neural foraminal narrowing at C5-C6 vital signs Vital Sign Date Time Temp Pulse Resp B/P (MAP) Pulse Ox O2 Delivery O2 Flow Rate FiO2 12/28/24 20:00 Room Air* 0 21 12/28/24 18:16 82 18 100 12/28/24 17:00 96.9 169/89 (115) 96.9 Total Intake and Output 12/27/24 12/27/24 12/28/24 15:00 23:00 07:00 Intake Total 2450 ml 700 ml Balance 2450 ml 700 ml medications Current Medications Medications Dose Ordered Sig/Rolly Route Start Time Stop Time Status Last Admin Dose Admin Fluoxetine HCl 20 mg DAILY PO 12/26/24 10:00 12/28/24 10:34 20 MG Atorvastatin Calcium 40 mg HS PO 12/25/24 22:00 12/28/24 21:42 40 MG Lorazepam 1 mg Q5MINP PRN IV 12/25/24 15:00 Diagnostic Test (Pha) 1 strip ACHS 12/25/24 17:00 12/28/24 21:39 1 STRIP Insulin Human Regular ACHS SC 12/25/24 17:00 12/28/24 21:39 4 UNITS Dextrose 50 ml UD PRN IV 12/25/24 15:00 Ondansetron HCl 4 mg Q4HP PRN IV 12/25/24 15:00 Acetaminophen 650 mg Q6HP PRN PO 12/25/24 15:00 12/26/24 11:50 650 MG Nitroglycerin 0.4 mg Q5MINP PRN SL 12/25/24 15:00 Lorazepam 1 mg Q8HP PRN IV 12/26/24 02:00 12/28/24 21:43 1 MG Insulin Glargine 20 units QAM SC 12/27/24 07:00 12/28/24 06:21 20 UNITS Insulin Glargine 15 units HS SC 12/26/24 22:00 12/28/24 21:39 15 UNITS Morphine Sulfate 1 mg Q6HP PRN IV 12/26/24 13:00 Hold Acetaminophen/ Hydrocodone Bitart 1 tab Q8HP PRN PO 12/26/24 13:00 12/27/24 22:03 1 TAB Gabapentin 200 mg TID PO 12/26/24 14:00 12/28/24 21:42 200 MG Ipratropium [place] 0.5 mg Q4HWA [facility] 12/26/24 18:00 12/28/24 18:06 0.5 MG Patient Own Medication 150 mg QAM PO 12/26/24 23:00 12/28/24 06:25 150 MG Patient Own Medication 200 mg HS PO 12/27/24 22:00 12/28/24 00:34 200 MG Lorazepam 1 mg ONCE PRN IV 12/26/24 23:00 12/28/24 11:45 1 MG Albuterol 2.5 mg Q4HWA NEB 12/27/24 06:00 12/28/24 18:06 2.5 MG Cefepime HCl 50 ml @ 12.5 mls/hr Q12H IV 12/27/24 18:00 12/28/24 17:31 12.5 MLS/HR Oxcarbazepine 600 mg Q12HR PO 12/28/24 10:00 12/28/24 21:42 600 MG objective General: the patient is well developed and nourished. No acute distress. MENTAL STATUS: Awake and alert. Oriented to person, place, time and general circumstances. Able to give personal history. SPEECH, LANGUAGE, HIGHER CORTICAL FUNCTION: no aphasia or dysathria. CRANIAL NERVES: Pupils are equal, round and reactive. EOMs full and conjugate. Facial sensation intact in all three divisions bilaterally. Mandibular strength intact. Facial muscles symmetrical and strength intact. SENSATION: Sensation to touch and pinprick is normal. MOTOR: Normal tone in the upper and lower extremity. Normal muscle bulk. No fasciculations. No abnormal movements or posturing. Muscle strength of the major groups in the extremities is 5/5 except for left grippin/5 REFLEXES: Deep tendon reflexes are symmetrical. No pathological reflexes. CEREBELLAR/COORDINATION: Finger to nose is normal bilaterally. GAIT/STATION: deferred. laboratory and microbiology Laboratory Tests 12/28/24 06:07 12/27/24 17:02 Test 12/28/24 06:07 Range/Units Serum Glucose 148 H 74-106 mg/dL Problem List Grand mal seizure Left hand weakness Rule out cerebral disorder Rule out cervical spine radiculopathy Assessment/Plan Monitoring Supportive treatment Telemetry Trileptal 600 mg b.i.d. Xcopri to 150mg AM, 200mg HS Lorazepam for seizure breakthrough More recommendation per clinical course This medical document was created using an electronic medical record system with IMASTE dictation system. Although this document has been carefully reviewed, there may still be some phonetic and typographical errors. These areas are purely typographical due to imperfections of the software programs, and do not reflect any compromise in the patient's medical care. Prognosis poor Dietary Evaluation Review Comments: 1) Martin 1 pk BID, Vit C 500mg BID, zinc sulfate 220mg BID x 10 days, MVI w/ minerals 1 tab daily 2) Refer [employer]er for diabetes education Expected Outcomes/Goals: To meet >75% estimated needs Fu 3-5 days Plan discussed with: Patient, Other Is the fluid challenge complet: Yes Date of Reassessment: Dec 25, 2024 Time of Reassessment: 1330 Blood Culture Time: 1205 Time Antibiotics Given: 1211 Systolic BP: 103 Diastolic BP: 55 Blood Pressure Mean: 71 Respiration: 12 Respiratory Effort: Non-Labored Respiratory Pattern: Regular Oxygen Saturation: 99 Pulse Rate: 88 Pulse Location: Radial Pulse Strength: Normal Pulse Assessment Method: Palpation Pulse Rhythm: Regular Capillary Refill: < 3 seconds Heart Sounds: S1 & S2 Breath sounds: Clear Skin Moisture: Dry Skin Tugor: WNL Skin Color: WNL NELLY JONES MD Dec 28, 2024 22:53
[2024-12-29 01:00] VITALS: BP 146/87; PULSE 88; RESP 18; TEMP 97.9; O2SAT 95
[2024-12-29 05:00] VITALS: BP 138/75; PULSE 85; RESP 19; TEMP 97.9; O2SAT 93
[2024-12-29 07:24] LABS: Hematocrit 38.4 % (36.0-46.0); Hemoglobin 13.0 g/dL (12.2-16.2); Mean Corpuscular Hemoglobin 29.7 pg (28.0-32.0); Mean Corpuscular Volume 87.9 fL (80.0-100.0); Nucleated Red Blood Cells % 0.3 %
[2024-12-29 07:33] LABS: Alanine Aminotransferase 36 U/L (7-40); Albumin 3.8 g/dL (3.2-4.8); Anion Gap 10 (5-15); BUN/Creatinine Ratio 24.1 (10.0-20.0); Calcium 10.3 mg/dL (8.7-10.4); Carbon Dioxide 23 mmol/L (20-31); Chloride 105 mmol/L (98-107); Potassium 5.1 mmol/L (3.5-5.1); Sodium 138 mmol/L (136-145); Total Protein 6.7 g/dL (5.7-8.2)
[2024-12-29 07:35] LABS: Alkaline Phosphatase 144 U/L (46-116); Bilirubin, Total < 0.2 mg/dL (0.2-1.0); Blood Urea Nitrogen 32 mg/dL (9-23); Glucose 156 mg/dL (74-106)
[2024-12-29 09:00] VITALS: BP 148/82; PULSE 87; RESP 20; TEMP 97.9; O2SAT 97
[2024-12-29 09:46] VITALS: O2SAT 97
[2024-12-29] MEDS ORDERED: THIAMINE HCL 100 MG TAB PO SCH (10:00)
[2024-12-29] MEDS ORDERED: FOLIC ACID 1 MG TAB PO SCH (10:00)
[2024-12-29] MEDS ORDERED: MULTIPLE VITAMIN TAB PO SCH (10:00)
[2024-12-29] MEDS ORDERED: ALBUTEROL SULF 2.5 MG/0.5ML(0.5%) NEB SOLN ONE (10:18)
[2024-12-29] MEDS ORDERED: IPRATROPIUM BROM 0.5 MG/2.5ML INH SOL ONE (10:18)
--- NOTE | 2024-12-29 13:21 | DVHDSRES ---
Discharge Summary Date of Admission Resident Creating Document: RIZWANA NOE Dec 25, 2024 at 14:52 Date of Discharge: Dec 29, 2024 Admitting Diagnosis Seizures Labs/Diagnostic Data: Laboratory Results Test 12/29/24 05:36 12/29/24 05:30 12/26/24 16:00 12/26/24 12:39 White Blood Count 5.6 10^3/uL (4.4-10.8) Red Blood Count 4.37 10^6/uL (4.0-5.20) Hemoglobin 13.0 g/dL (12.2-16.2) Hematocrit 38.4 % (36.0-46.0) Mean Corpuscular Volume 87.9 fL (80.0-100.0) Mean Corpuscular Hemoglobin 29.7 pg (28.0-32.0) Mean Corpuscular Hemoglobin Concent 33.8 g/dL (32.0-36.0) Red Cell Distribution Width 14.9 % (11.8-14.3) Platelet Count 100 10^3/uL (140-450) Mean Platelet Volume 9.9 fL (6.9-10.8) Neutrophils (%) (Auto) 57.2 % (37.0-80.0) Lymphocytes (%) (Auto) 34.2 % (10.0-50.0) Monocytes (%) (Auto) 4.9 % (0.0-12.0) Eosinophils (%) (Auto) 3.0 % (0.0-7.0) Basophils (%) (Auto) 0.7 % (0.0-2.0) Neutrophils # (Auto) 3.2 10 ^3/uL (1.6-8.6) Lymphocytes # (Auto) 1.9 10 ^3/uL (0.4-5.4) Monocytes # (Auto) 0.3 10 ^3/uL (0-1.3) Eosinophils # (Auto) 0.2 10 ^3/uL (0-0.8) Basophils # (Auto) 0 10 ^3/uL (0-0.2) Nucleated Red Blood Cells 0.3 % Sodium Level 138 mmol/L (136-145) Potassium Level 5.1 mmol/L (3.5-5.1) Chloride Level 105 mmol/L (98-107) Carbon Dioxide Level 23 mmol/L (20-31) Anion Gap 10 (5-15) Blood Urea Nitrogen 32 mg/dL (9-23) Creatinine 1.33 mg/dL (0.550-1.02) Glomerular Filtration Rate Calc 49 mL/min (>90) BUN/Creatinine Ratio 24.1 (10.0-20.0) Serum Glucose 156 mg/dL (74-106) Calcium Level 10.3 mg/dL (8.7-10.4) Total Bilirubin < 0.2 mg/dL (0.2-1.0) Aspartate Amino Transferase (AST) 37 U/L (13-40) Alanine Aminotransferase (ALT) 36 U/L (7-40) Alkaline Phosphatase 144 U/L (46-116) Total Protein 6.7 g/dL (5.7-8.2) Albumin 3.8 g/dL (3.2-4.8) POC Glucose 183 mg/dl (70-106) Influenza Type A Antigen Negative (Negative) Influenza Type B Antigen Negative (Negative) SARS-CoV-2 Antigen (Rapid) Negative (NEGATIVE) Prolactin 3.97 ng/mL (2.8-29.2) Test 12/26/24 09:41 12/26/24 08:36 12/25/24 12:19 12/25/24 12:12 Hemoglobin A1c 10.4 % A1C (<5.7) Magnesium Level 1.6 mg/dL (1.6-2.6) Thyroid Stimulating Hormone (TSH) 1.00 uIU/mL (0.55-4.78) Erythrocyte Sedimentation Rate 28 mm/hr (0-20) Anti-Nuclear Antibody Comment Comment (.) Anti-Proteinase 3 (c-ANCA) <0.2 units (0.0-0.9) Myeloperoxidase Antibody <0.2 units (0.0-0.9) NISHI-1 Antibody <0.2 AI (0.0-0.9) SS-A/Ro Antibody 0.2 AI (0.0-0.9) SS-B/La Antibody <0.2 AI (0.0-0.9) Sm Antibody <0.2 AI (0.0-0.9) TRAILER TRUCK DRIVER Antibody <0.2 AI (0.0-0.9) Scl-70 (Scleroderma) Antibody <0.2 AI (0.0-0.9) Anti-Double Strand DNA Antibody 1 IU/mL (0-9) Chromatin Antibody <0.2 AI (0.0-0.9) Centromere B Antibody <0.2 AI (0.0-0.9) Complement C3 128 mg/dL (82-167) Complement C4 21 mg/dL (12-38) Hepatitis A IgM Antibody Negative Hepatitis B Surface Antigen Negative (Negative) Hepatitis B Core IgM Antibody Negative (Negative) Hepatitis C Antibody Reactive (Negative) Prothrombin Time 10.5 sec (9.3-11.8) Prothrombin Time INR 0.99 (0.9-1.15) Activated Partial Thromboplast Time 22.0 SEC (24.5-34.5) Lactic Acid Level 2.0 mmol/L (0.4-2.0) Urine Color Yellow (Yellow) Urine Clarity Clear (Clear) Urine pH 5.5 (5.0-9.0) Urine Specific [place] 1.016 (1.001-1.035) Urine Protein 2+ (Negative) Urine Ketones Negative (Negative) Urine Blood Negative /uL (Negative) Urine Nitrite Negative (Negative) Urine Bilirubin Negative (Negative) Urine Urobilinogen Normal mg/dL (Negative) Urine Leukocyte Esterase Negative /uL (Negative) Urine RBC <1 /hpf (0 - 4) Urine Microscopic WBC 1 /HPF (0-5) Urine Squamous Epithelial Cells Few /hpf (<5) Urine Bacteria None seen /hpf (None Seen) Urine Hyaline Casts Few /lpf (0 - 2) Urine Creatinine 138.14 mg/dL (30.0-125.0) Urine Protein/Creatinine Ratio 1.76 Urine Glucose 3+ mg/dL (Normal) Urine Total Protein 243.8 mg/dL (1-14) Urine Opiates Screen Neg (NEGATIVE) Urine Fentanyl Screen Neg (NEGATIVE) Urine Barbiturates Screen Neg (NEGATIVE) Urine Phencyclidine Screen Neg (NEGATIVE) Urine Amphetamines Screen Neg (NEGATIVE) Urine Benzodiazepines Screen Neg (NEGATIVE) Urine Cocaine Screen Neg (NEGATIVE) Urine Cannabinoids Screen Pos (NEGATIVE) Test 12/25/24 10:50 Troponin I High Sensitivity < 3 ng/L (</=34) Other Laboratory Tests 12/29/24 05:36 Brief Hx & Hospital Course: A 49-year-old female presents to the ED after experiencing a seizure episode. According to the patient, the seizure began suddenly in was characterized by loss of consciousness, lasting 5 minutes. After that, she found herself lying on the floor and EMS brought the patient to the ER. It was not associated with bladder or bowel incontinence or tongue biting. The patient was experiencing headache after the episode. She currently denies any chest pain, shortness of breath, fever, abdominal pain,nausea. vomiting or any other complaints. During her stay in the hospital, due to history of smoking use patient was advised to take nicotine patch but she refused and she went outside with her for smoking and had a fall which led her to right ankle fracture. Past medical history:Seizure, hypertension, rheumatoid arthritis, SLE not on steroids, diabetes mellitus Past surgical history: Carpal tunnel release, right ankle surgery, 3 sections, cholecystectomy, ulcer in the back Family history: Maternal aunt and cousin have seizure disorders. Smoking history: the patient started smoking when she was 12 years old and continued till now. She takes half pack a day. Drugs: Active marijuana use. Lives with family. She was treated with lorazepam. Her diabetes was managed with insulin glargine. Was receiving breathing treatment with ipratropium. She continued her regular medications gabapentin,statin,fluoxetine. X-ray of the left wrist and cervical CT without contrast was done to rule out any accidental fractures or injury, revealed no acute fracture or dislocation of the joints and bones. Brain MRI was unremarkable without any acute abnormality. Abdomen pelvis CT revealed no acute intra-abdominal abnormality. Neck MRI was done which revealed no high- grade spinal stenosis or cord compression. Moderate right neural foraminal narrowing at C5 on C6 was revealed. She was managed conservatively. Neurology was consulted and she was monitored on telemetry. She was given trial left total 600 mg b.i.d.. Xcopri doses of 150 mg a.m., 200 mg HS was given. Butter Fat Tester was consulted as well and was treated for her FARHAN with IV fluid. Creatinine levels improved. She was encouraged to have per oral food. However the treatment was ongoing, the patient left AMA despite explaining the consequences of the decision on her health. Physical examination was not done because patient left AMA. Operations or Procedures Neck MRI: No high-grade spinal stenosis or cord compression. Moderate right neural foraminal narrowing at C5-C6. Brain MRI: Unremarkable MRI findings of the brain without acute abnormality. Abdomen pelvis CT: No acute intraabdominal abnormality. Left Wrist x-ray: No acute fracture or dislocation of the left wrist Chest x-ray: No acute intrathoracic abnormality Cervical CT without contrast: No evidence of acute cervical spine fracture or traumatic malalignment. Condition at Discharge: Undetermined Final Diagnosis/Problems List Generalized tonic-clonic seizures History of recurrent falls FARHAN likely VM in on CKD 3A Diarrhea Depression anxiety Type 2 diabetes Rheumatoid arthritis Polysubstance use disorder including marijuana and tobacco Discharge Disposition: AMA Discharge Instruct/Medications Scheduled Baclofen (Baclofen), 10 MG PO BID, (Reported) Cenobamate (XCOPRI 14 x 150 MG & 14 x200 MG), 1 CHRISTOPHER PO BID, (Reported) Cenobamate (XCOPRI 14 x 150 MG & 14 x200 MG), 1 CHRISTOPHER PO BID, (Reported) Cenobamate (Xcopri), 150 MG PO DAILY, (Reported) Cenobamate (Xcopri), 200 MG PO HS, (Reported) Fluoxetine Hcl (Fluoxetine Hcl), 20 MG PO DAILY, (Reported) Gabapentin (Gabapentin), 300 MG PO TID, (Reported) Hydrocodone-Acetaminophen (Hydrocodone Bitartrate/AC 10-325 mg), 1 TAB PO TID, (Reported) Hydroxychloroquine Sulfate (Hydroxychloroquine Sulfat), 200 MG PO BID, (Reported) Lorazepam (Lorazepam), 1 MG PO DAILY, (Reported) Oxcarbazepine (Trileptal), 600 MG PO BID, (Reported) Oxcarbazepine (Oxtellar Xr), 150 MG PO BID, (Reported) Quetiapine Fumerate (Seroquel), 800 MG PO DAILY@DINNER, (Reported) Temazepam (Restoril), 1 CAP PO QPM, (Reported) Valsartan-Hydrochlorothiazide (Diovan Hct), 1 TAB PO DAILY, (Reported) Miscellaneous Medications Insulin Lispro (Insulin Lispro), 100 UNIT IJ, (Reported) Quetiapine Fumerate (Seroquel), 25 MG PO, (Reported) Discharge Statement: "Patient was advised to return to the ER or call 911 if any headaches, dizziness, shortness of breath, chest pain, abdominal pain, bleeding, fevers, or worsening of medical condition. Patient was counseled about treatment plan, medications, possible side effects, patientverbalized understanding. All questions were answered to the best of my ability. This discharge took greater then 30 minutes in planning, reviewing documentation, counseling the patient, and discussing with other team members." ASSESSMENT ASSESSMENT Assessment Date of Service: Dec 29, 2024 Billing Provider: KEVIN MORENO MD Common Visit Codes: 20366-BTD/OBS DISCH DAY >30min KUSUM,RIZWANA RESIDENT Dec 29, 2024 13:21 KEVIN MORENO MD Dec 29, 2024 22:45
== END 2024-12-29 10:04 | disposition left against medical advice (07) | DRG 53 ==
LOC: EDBD 10:24 → EEVIPCON 10:24 → ER 10:24 → OVERFLOW 14:52 → WEST WING 18:28
PROVIDERS: ADMIT Internal Medicine; ATTEND Internal Medicine
DX: G40.409 Other generalized epilepsy and epileptic syndromes, not intractable, without status epilepticus (principal); N17.0 Acute kidney failure with tubular necrosis; L89.159 Pressure ulcer of sacral region, unspecified stage; R65.10 Systemic inflammatory response syndrome (SIRS) of non-infectious origin without acute organ dysfunction; E11.22 Type 2 diabetes mellitus with diabetic chronic kidney disease; M32.9 Systemic lupus erythematosus, unspecified; B19.20 Unspecified viral hepatitis C without hepatic coma; E86.0 Dehydration; Z53.29 Procedure and treatment not carried out because of patient's decision for other reasons; Z20.822 Contact with and (suspected) exposure to COVID-19; S82.51XA Displaced fracture of medial malleolus of right tibia, initial encounter for closed fracture; N18.31 Chronic kidney disease, stage 3a; M06.9 Rheumatoid arthritis, unspecified; E11.65 Type 2 diabetes mellitus with hyperglycemia; F40.240 Claustrophobia; I12.9 Hypertensive chronic kidney disease with stage 1 through stage 4 chronic kidney disease, or unspecified chronic kidney disease; G25.2 Other specified forms of tremor; F32.A Depression, unspecified; F41.9 Anxiety disorder, unspecified; E66.01 Morbid (severe) obesity due to excess calories; F19.90 Other psychoactive substance use, unspecified, uncomplicated; M48.02 Spinal stenosis, cervical region; Z90.49 Acquired absence of other specified parts of digestive tract; R79.89 Other specified abnormal findings of blood chemistry; Z82.0 Family history of epilepsy and other diseases of the nervous system; Z82.3 Family history of stroke; Z82.49 Family history of ischemic heart disease and other diseases of the circulatory system; Z82.5 Family history of asthma and other chronic lower respiratory diseases; Z83.3 Family history of diabetes mellitus; Z87.442 Personal history of urinary calculi; Z81.8 Family history of other mental and behavioral disorders; Z88.0 Allergy status to penicillin; Z88.5 Allergy status to narcotic agent; Z90.710 Acquired absence of both cervix and uterus; Z68.35 Body mass index [BMI] 35.0-35.9, adult; W18.39XA Other fall on same level, initial encounter; Y93.89 Activity, other specified; Y92.128 Other place in nursing home as the place of occurrence of the external cause; Y99.8 Other external cause status; Z79.899 Other long term (current) drug therapy; Z79.4 Long term (current) use of insulin; Z79.891 Long term (current) use of opiate analgesic
CPT/HCPCS: 36415; 70450; 70547; 70551; 71045; 72125; 73110; 73610; 74176; 80048; 80053; 80074; 80307; 81001; 82570; 82962; 83036; 83516; 83520; 83605; 83735; 84146; 84156; 84443; 84484; 85025; 85610; 85652; 85730; 86160; 86225; 86235; 86256; 87040; 87426; 87804; 93005; 94640; 96361; 96365; G0378; J1815

== ENCOUNTER 2025-01-28 11:45 | Inpatient (IN) | payer MEDICAID ==
[2025-01-28] VITALS (8 sets, daily range): BP systolic 97–149; BP diastolic 58–82; PULSE 78–91; RESP 17–23; TEMP 97.5–98.5; O2SAT 96–100
[~2025-01-28] VITALS: Ht 170.2 cm; Wt 90.0 kg
[~2025-01-28 11:45] MED LIST: BACL10TA PO; CENO200T PO; FLUO-125 PO; GABA-1250 PO; HYDR-4798 PO; HYDR200T36 PO; INSU100I52 IJ; LORA-1123 PO; OXCA150T61 PO; OXCA600T3 PO; QUET25TA37 PO; QUET50TA PO; TEMA15CA2 PO; VALS160T53 PO; [UNRECOGNIZED DRUG - CODE] PO; [UNRECOGNIZED DRUG - CODE] PO
[2025-01-28] MEDS: SODIUM CHLORIDE 0.9% 500 ML IV ONE (12:24)
--- NOTE | 2025-01-28 12:28 | ED.PDOC ---
History of Present Illness HPI Comments This is a 49-year-old female with past medical history of hypertension, type 2 diabetes mellitus presented to the ED via EMS with a chief complaint of status post mechanical fall on the right side, generalized weakness, tremor, difficulties in speech and blurred vision since morning prior to this visit. The patient states that few days ago she was admitted in another hospital and and leave the hospital AMA and since morning she felt weak, dizzy and fall on the right side getting hurt into the right shoulder and pelvis and also complaint of blurred vision and tremor since morning. On arrival the patient was hypotensive 90/48 and desaturating and given 500 NS IV bolus that raise the blood pressure to 108/61 and on 5 L oxygen with saturation 97%. She denies headache, chest pain, nausea, vomiting, diaphoresis, incontinence, any specific weakness any parts of the body. Chief Complaint: Nausea/Vomiting Time Seen by MD: 12:03 Allergies: Coded Allergies: Codeine (Verified Allergy, Unknown, itching, 12/26/24) not from Accupal per patient Morphine (Verified Allergy, Unknown, 12/25/24) Penicillins (Verified Allergy, Unknown, 12/25/24) Home Meds Reported Medications Cenobamate (Xcopri) 200 Mg Tab, 200 MG PO HS for 30 Days, #30 TAB 12/28/24 Cenobamate (Xcopri) 150 Mg Tab, 150 MG PO DAILY for 30 Days, #30 TAB 12/28/24 Cenobamate (XCOPRI 14 x 150 MG & 14 x200 MG) 1 Walker Walker, 1 WALKER PO BID for 30 Days, #60 PACK 12/28/24 Cenobamate (XCOPRI 14 x 150 MG & 14 x200 MG) 1 Walker Walker, 1 WALKER PO BID for 30 Days, #30 PACK 2 Refills 12/28/24 Insulin Lispro (Insulin Lispro) 100 Unit/Ml Inj, 100 UNIT IJ, INJ 12/25/24 Oxcarbazepine (OXTELLAR XR) 150 Mg Tab, 150 MG PO BID, TAB 12/25/24 Temazepam (Restoril) 15 Mg Cp, 1 CAP PO QPM, #30 CAP 1 Refill 12/25/24 Oxcarbazepine (Trileptal) 600 Mg Tab, 600 MG PO BID for seizure, TAB 12/25/24 Valsartan-Hydrochlorothiazide (Diovan Hct) 160 /12.5 Tab, 1 TAB PO DAILY, #30 TAB 5 Refills 12/25/24 Baclofen (Baclofen) 10 Mg Tab, 10 MG PO BID, MG 12/25/24 Lorazepam (Lorazepam) 1 Mg Tab, 1 MG PO DAILY, TAB 12/25/24 Quetiapine Fumerate (Seroquel) 25 Mg Tab, 25 MG PO for anxiety for 30 Days, MG 12/25/24 Fluoxetine Hcl (Fluoxetine Hcl) 20 Mg Cap, 20 MG PO DAILY, MG 12/25/24 Hydroxychloroquine Sulfate (Hydroxychloroquine Sulfat) 200 Mg Tab, 200 MG PO BID for lupus , MG 12/25/24 Quetiapine Fumerate (Seroquel) 50 Mg Tab, 800 MG PO DAILY@DINNER for 30 Days, MG 12/25/24 Hydrocodone-Acetaminophen (Hydrocodone Bitartrate/AC 10-325 mg) 1 Tab Tab, 1 TAB PO TID, TAB 12/25/24 Gabapentin (Gabapentin) 300 Mg Cap, 300 MG PO TID, MG 12/25/24 Information Source: Patient Mode of Arrival: EMS Severity: Moderate Timing: Hours Duration: Since onset Prehospital treatment: None Past Medical History PAST MEDICAL HISTORY: DM, HTN Surgical History: Denies all surgeries HAIR SPRING CUTTER History: Denies all HAIR SPRING CUTTER Hx Family History Family History: Reviewed,noncontributory to illness Social History Smoker: Cigarettes, Greater Than 1 Pack/Day Alcohol: Occasionally Drugs: Denies Drug Use Lives In: Home Constitutional: reports: fatigue, weakness; denies: chills, diaphoresis, fever, malaise, sweats, others EENTM: reports: blurred vision; denies: double vision, ear bleeding, ear discharge, ear drainage, ear pain, ear ringing, eye pain, eye redness, hearing loss, mouth pain, mouth swelling, nasal discharge, nose bleeding, nose congestion, nose pain, photophobia, tearing, throat pain, throat swelling, voice changes, others Respiratory: reports: shortness of breath; denies: cough, hemoptysis, orthopnea, SOB at rest, SOB with excertion, stridor, wheezing, others Cardiovascular: reports: dizzy spells; denies: chest pain, diaphoresis, Dyspnea on exertion, edema, irregular heart beat, left arm pain, lightheadedness, palpitations, PND, syncope, others Gastrointestinal: denies: abdomen distended, abdominal pain, blood streaked bowels, constipated, diarrhea, dysphagia, difficulty swallowing, hematemesis, melena, nausea, poor appetite, poor fluid intake, rectal bleeding, rectal pain, vomiting, others Genitourinary: denies: abnormal vagina bleeding, burning, dyspareunia, dysuria, flank pain, frequency, hematuria, incontinence, pain, , vagina discharge, urgency, others Neurological: reports: dizziness, speech problems; denies: fainting, headache, left sided numbness, left sided weakness, numbness, paresthesia, pre-existing deficit, right sided numbness, right sided weakness, seizure, tingling, tremors, weakness, others Musculoskeletal: denies: back pain, gout, joint pain, joint swelling, muscle pain, muscle stiffness, neck pain, others Integumetry: denies: bruises, change in color, change in hair/nails, dryness, laceration, lesions, lumps, rash, wounds, others Allergic/Immunocompromised: denies: Difficulty Healing, Frequent Infections, Hives, Itching, others Hematologic/Lymphatic: denies: anemia, blood clots, easy bleeding, easy bruising, swollen glands, others Endocrine: denies: excessive hunger, excessive sweating, excessive thirst, excessive urination, flushing, intolerance to cold, intolerance to heat, unexplained weight gain, unexplained weight loss, others Psychiatric: denies: anxiety, bipolar disorder, depression, hopeless, panic disorder, schizophrenia, sleepless, suicidal, others Physical Exam General Appearance: Mild Distress HEENT: Normal ENT Inspection, Pharynx Normal, TMs Normal Neck: Full Range of Motion, Non-Tender, Normal, Normal Inspection Respiratory: Chest Non-Tender, Lungs Clear, No Accessory Muscle Use, No Respiratory Distress, Normal Breath Sounds Cardiovascular: No Edema, No JVD, No Murmur, No Gallop, Normal Peripheral Pulses, Regular Rate/Rhythm Breast Exam: Deferred Gastrointestinal: No Organomegaly, Non Tender, No Pulsatile Mass, Normal Bowel Sounds, Soft Genitalia: Deferred Pelvic: Deferred Rectal: Deferred Extremities: No calf tenderness, Normal capillary refill, Normal inspection, Normal range of motion, Non-tender, No pedal edema 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 Was a procedure done?: No EKG EKG : Comments Normal sinus rhythm Differential Dx Considerations may include: TIA, stroke, CHF, pneumonia, FARHAN, generalized weakness, hypotension, sepsis, liver cirrhosis X-Ray, Labs, Meds, VS Vital Signs Date Time Temp Pulse Resp B/P (MAP) Pulse Ox O2 Delivery O2 Flow Rate FiO2 01/28/25 14:10 14 99 Nasal Cannula* 6 44 01/28/25 12:34 83 01/28/25 12:24 97.8 80 23 100/72 (81) 96 97.8 01/28/25 12:23 80 23 96 Nasal Cannula* 6 44 01/28/25 12:14 81 01/28/25 12:01 97.5 80 18 120/88 96 97.5 Lab Test 01/28/25 14:10 01/28/25 12:42 Range/Units Urine Color Yellow Yellow Urine Clarity Clear Clear Urine pH 6.0 5.0-9.0 Urine Specific [place] 1.016 1.001-1.035 Urine Protein 2+ H Negative Urine Ketones Negative Negative Urine Blood Negative Negative /uL Urine Nitrite Negative Negative Urine Bilirubin Negative Negative Urine Urobilinogen Normal Negative mg/dL Urine Leukocyte Esterase Negative Negative /uL Urine RBC 1 0 - 4 /hpf Urine Microscopic WBC 1 0-5 /HPF Urine Squamous Epithelial Cells Few <5 /hpf Urine Bacteria None seen None Seen /hpf Urine Hyaline Casts Mod 0 - 2 /lpf Urine Glucose Trace Normal mg/dL Urine Opiates Screen Pos NEGATIVE Urine Fentanyl Screen Neg NEGATIVE Urine Barbiturates Screen Neg NEGATIVE Urine Phencyclidine Screen Neg NEGATIVE Urine Amphetamines Screen Neg NEGATIVE Urine Benzodiazepines Screen Pos NEGATIVE Urine Cocaine Screen Neg NEGATIVE Urine Cannabinoids Screen Pos NEGATIVE White Blood Count 8.3 4.4-10.8 10^3/uL Red Blood Count 5.01 4.0-5.20 10^6/uL Hemoglobin 14.5 12.2-16.2 g/dL Hematocrit 43.5 36.0-46.0 % Mean Corpuscular Volume 86.9 80.0-100.0 fL Mean Corpuscular Hemoglobin 29.0 28.0-32.0 pg Mean Corpuscular Hemoglobin Concent 33.4 32.0-36.0 g/dL Red Cell Distribution Width 14.2 11.8-14.3 % Platelet Count 112 L 140-450 10^3/uL Mean Platelet Volume 8.6 6.9-10.8 fL Neutrophils (%) (Auto) 64.9 37.0-80.0 % Lymphocytes (%) (Auto) 27.0 10.0-50.0 % Monocytes (%) (Auto) 5.7 0.0-12.0 % Eosinophils (%) (Auto) 1.8 0.0-7.0 % Basophils (%) (Auto) 0.6 0.0-2.0 % Neutrophils # (Auto) 5.4 1.6-8.6 10 ^3/uL Lymphocytes # (Auto) 2.2 0.4-5.4 10 ^3/uL Monocytes # (Auto) 0.5 0-1.3 10 ^3/uL Eosinophils # (Auto) 0.1 0-0.8 10 ^3/uL Basophils # (Auto) 0.1 0-0.2 10 ^3/uL Nucleated Red Blood Cells 0.2 % D-Dimer, Quantitative 0.32 0.0-0.49 mg/L FEU Sodium Level 135 L 136-145 mmol/L Potassium Level 3.8 3.5-5.1 mmol/L Chloride Level 92 L 98-107 mmol/L Carbon Dioxide Level 32 H 20-31 mmol/L Anion Gap 11 5-15 Blood Urea Nitrogen 43 H 9-23 mg/dL Creatinine 3.85 H 0.550-1.02 mg/dL Glomerular Filtration Rate Calc 14 >90 mL/min BUN/Creatinine Ratio 11.2 10.0-20.0 Serum Glucose 194 H 74-106 mg/dL Lactic Acid Level 1.6 0.4-2.0 mmol/L Calcium Level 10.3 8.7-10.4 mg/dL Total Bilirubin 0.2 0.2-1.0 mg/dL Aspartate Amino Transferase (AST) 45 H 13-40 U/L Alanine Aminotransferase (ALT) 18 7-40 U/L Alkaline Phosphatase 142 H 46-116 U/L Ammonia 12 11-32 umol/L Troponin I High Sensitivity < 3 L </=34 ng/L B-Type Natriuretic Peptide 42.86 0-100 pg/mL Total Protein 7.7 5.7-8.2 g/dL Albumin 4.3 3.2-4.8 g/dL Current Medications Medications (Trade) Dose Ordered Sig/Rolly Route Start Time Stop Time Status Last Admin Sodium Chloride 500 ml @ 500 mls/hr Q1H ONCE IV 01/28/25 12:15 01/28/25 13:14 DC 01/28/25 12:24 Albuterol (Ventolin Medneb) 2.5 mg ONCE ONCE NEB 01/28/25 13:45 01/28/25 13:47 DC 01/28/25 14:09 Ipratropium [place] (Atrovent Medneb) 0.5 mg ONCE ONCE NEB 01/28/25 13:45 01/28/25 13:47 DC 01/28/25 14:09 Ceftriaxone Sodium 50 ml @ 50 mls/hr ONCE ONCE IV 01/28/25 13:45 01/28/25 14:44 DC 01/28/25 14:00 Azithromycin 250 ml @ 125 mls/hr ONCE ONCE IV 01/28/25 15:00 01/28/25 16:59 01/28/25 15:10 X-Ray, Labs, Meds, VS Comment CHEST RADIOGRAPH Indication: shortness of breath Technique: XY CHEST PORTABLE COMPARISON: None FINDINGS: The cardiac silhouette is enlarged. The lungs demonstrate bilateral patchy airspace opacities, most pronounced right lower lobe. The pulmonary vasculature is prominent. Small right pleural effusion. Elevation right hemidiaphragm. There is no pneumothorax. IMPRESSION: As above EXAM: CT HEAD WITHOUT CONTRAST INDICATION: Dizziness TECHNIQUE: CT of the head without intravenous contrast. Radiation Dose : 1. Head: CT Dose: CTDI volume is 62.21 mGy. Dose-length product is 1225.84 mGy*cm The dose indicators for CT are the volume Computed Tomography (CT) Dose Index (CTDIvol) and the Dose Length Product (DLP), and are measured in units of mGy and mGy-cm, respectively. These indicators are not patient dose, but values generated from the CT scanner acquisition factors. The report includes radiation exposure data for exposures received during this examination. COMPARISON: MRI BRAIN HEAD WO CONTRAST on DOS: 12/28/24, CT HEAD WITHOUT CONTRAST on DOS: 12/25/24 FINDINGS: There is no evidence of acute intracranial hemorrhage, extra-axial collection, mass effect, midline shift, herniation or hydrocephalus. The ventricles, sulci and cisterns are age appropriate. The mora-white differentiation is intact. The visualized paranasal sinuses and mastoid air cells are clear. The surrounding soft tissues and osseous structures are unremarkable. IMPRESSION: No acute intracranial abnormality. Images Reviewed?: Images reviewed and evaluated by me Time of 1ST Reevaluation: 15:16 Reevaluation 1ST: Improved Patient Education/Counseling: Diagnosis, Treatment, Prognosis Family Education/Counseling: No Family Present Comments I, Noé Cabrera MD, attest that I was present and participated in the critical and jeffers portions of the exam and agree with the resident physician's findings and treatment plan This is a 49-year-old female presented to the ER via EMS with a complaint of generalized weakness, dizziness, and shortness of breath Initially patient was hypotensive, tachypneic and on 6 L oxygen with saturation 97% Chest x-ray demonstrated bilateral pulmonary vascular congestion, raised hemidia phragm on the right side and possible consolidation on the right lower lobe Patient will be admitted for further evaluation and management of acute hypoxic respiratory failure likely secondary to possible pneumonia. SEPSIS Sepsis Screen Date sepsis recognized/suspect: Jan 28, 2025 Time Sepsis recognized/suspect: 1207 Recent Procedure: No On Antibiotic Therapy: No Respiratory Rate >20: No Heart Rate >90: No Temp<36 C (96.8 F) or >38.3 C: No SBP <90 or MAP <65 mmHG: No New Acute Mental Status Change: No Is the patient on CPAP, BIPAP,: No Physician Orders Electrocardigram (01/28/25 12:12) Chest Portable (01/28/25 12:14) Head Without Contrast (01/28/25 12:14) Azithromycin 500mg/ 250ml (Zithromax 50 (01/28/25 15:00) Vital Signs Date Time Temp Pulse Resp B/P (MAP) Pulse Ox O2 Delivery O2 Flow Rate FiO2 01/28/25 14:10 14 99 Nasal Cannula* 6 44 01/28/25 12:34 83 01/28/25 12:24 97.8 80 23 100/72 (81) 96 97.8 01/28/25 12:23 80 23 96 Nasal Cannula* 6 44 01/28/25 12:14 81 01/28/25 12:01 97.5 80 18 120/88 96 97.5 Laboratory Tests Test 01/28/25 12:42 Lactic Acid Level 1.6 mmol/L (0.4-2.0) White Blood Count 8.3 10^3/uL (4.4-10.8) Medications Medications Dose Ordered Sig/Rolly Route Start Time Stop Time Status Last Admin Dose Admin Albuterol 2.5 mg ONCE ONCE NEB 01/28/25 13:45 01/28/25 13:47 DC 01/28/25 14:09 Azithromycin 250 ml @ 125 mls/hr ONCE ONCE IV 01/28/25 15:00 01/28/25 16:59 01/28/25 15:10 Ceftriaxone Sodium 50 ml @ 50 mls/hr ONCE ONCE IV 01/28/25 13:45 01/28/25 14:44 DC 01/28/25 14:00 Ipratropium [place] 0.5 mg ONCE ONCE NEB 01/28/25 13:45 01/28/25 13:47 DC 01/28/25 14:09 Sodium Chloride 500 ml @ 500 mls/hr Q1H ONCE IV 01/28/25 12:15 01/28/25 13:14 DC 01/28/25 12:24 Departure 1 Departure Time of Disposition: 15:19 Impression: Primary Impression: Acute hypoxic respiratory failure Additional Impression: Pneumonia Disposition: 09 ADMITTED INPATIENT Admit to: Med Surg Condition: Guarded Critical Care Note Critical Care Time?: No Stability Stability form required: No JULISA LUO RESIDENT Jan 28, 2025 12:28 NOÉ CABRERA MD Jan 28, 2025 14:44
--- NOTE | 2025-01-28 12:52 | DVH ---
EXAM: CT HEAD WITHOUT CONTRAST INDICATION: Dizziness TECHNIQUE: CT of the head without intravenous contrast. Radiation Dose : 1. Head: CT Dose: CTDI volume is 62.21 mGy. Dose-length product is 1225.84 mGy*cm The dose indicators for CT are the volume Computed Tomography (CT) Dose Index (CTDIvol) and the Dose Length Product (DLP), and are measured in units of mGy and mGy-cm, respectively. These indicators are not patient dose, but values generated from the CT scanner acquisition factors. The report includes radiation exposure data for exposures received during this examination. COMPARISON: MRI BRAIN HEAD WO CONTRAST on DOS: 12/28/24, CT HEAD WITHOUT CONTRAST on DOS: 12/25/24 FINDINGS: There is no evidence of acute intracranial hemorrhage, extra-axial collection, mass effect, midline s hift, herniation or hydrocephalus. The ventricles, sulci and cisterns are age appropriate. The mora-white differentiation is intact. The visualized paranasal sinuses and mastoid air cells are clear. The surrounding soft tissues and osseous structures are unremarkable. IMPRESSION: No acute intracranial abnormality. Radiation optimization: All CT scans at this facility use at least one of these dose optimization zaire hniques: automated exposure control mA and/or kV adjustment per patient size (includes targeted exam s where dose is matched to clinical indication) or iterative reconstruction.
--- NOTE | 2025-01-28 12:53 | DVH ---
CHEST RADIOGRAPH Indication: shortness of breath Technique: XY CHEST PORTABLE COMPARISON: None FINDINGS: The cardiac silhouette is enlarged. The lungs demonstrate bilateral patchy airspace opacities, most p ronounced right lower lobe. The pulmonary vasculature is prominent. Small right pleural effusion. El evation right hemidiaphragm. There is no pneumothorax. IMPRESSION: As above
[2025-01-28 13:08] LABS: Hematocrit 43.5 % (36.0-46.0); Hemoglobin 14.5 g/dL (12.2-16.2); Mean Corpuscular Hemoglobin 29.0 pg (28.0-32.0); Mean Corpuscular Volume 86.9 fL (80.0-100.0); Nucleated Red Blood Cells % 0.2 %
[2025-01-28 13:23] LABS: Alanine Aminotransferase 18 U/L (7-40); Albumin 4.3 g/dL (3.2-4.8); Anion Gap 11 (5-15); BUN/Creatinine Ratio 11.2 (10.0-20.0); Calcium 10.3 mg/dL (8.7-10.4); Potassium 3.8 mmol/L (3.5-5.1); Total Protein 7.7 g/dL (5.7-8.2)
[2025-01-28 13:24] LABS: Alkaline Phosphatase 142 U/L (46-116); Bilirubin, Total 0.2 mg/dL (0.2-1.0); Blood Urea Nitrogen 43 mg/dL (9-23); Carbon Dioxide 32 mmol/L (20-31); Chloride 92 mmol/L (98-107); Glucose 194 mg/dL (74-106); Sodium 135 mmol/L (136-145)
[2025-01-28] MEDS: cefTRIAXone 1GM/50ML D5W 50 ML IV ONE (14:00)
[2025-01-28] MEDS: IPRATROPIUM BROM 0.5 MG/2.5ML INH SOL NEB ONE (14:09)
[2025-01-28] MEDS: ALBUTEROL SULF 2.5 MG/0.5ML(0.5%) NEB SOLN NEB ONE (14:09)
[2025-01-28 14:27] LABS: Urine Protein, UAD 2+ (Negative)
[2025-01-28 14:31] LABS: Amphetamine Screen, Urine Neg (NEGATIVE)
[2025-01-28 14:32] LABS: Benzodiazephine Screen, Urine Pos (NEGATIVE); Cannabinoid Screen, Urine Pos (NEGATIVE); Opiate Scree,Urine Pos (NEGATIVE); Phencyclidine Screen, Urine Neg (NEGATIVE)
[2025-01-28 14:33] LABS: Barbiturate Scree,Urine Neg (NEGATIVE); Cocaine Screen, Urine Neg (NEGATIVE)
[2025-01-28] MEDS: AZITHROMYCIN 500MG/ 250ML 250 ML IV ONE (15:10)
[2025-01-28] MEDS ORDERED: DOCUSATE SOD 100 MG CAP PO PRN (17:15)
[2025-01-28] MEDS ORDERED: ACETAMINOPHEN 325 MG TAB PO PRN (17:15)
--- NOTE | 2025-01-28 17:17 | DVHHP2 ---
Admitting Diagnosis: Fall right side History of Present Illness This is a 49-year-old female with past medical history of hypertension, type 2 diabetes mellitus presented to the ED via EMS with a chief complaint of status post mechanical fall on the right side, generalized weakness, tremor, difficulties in speech and blurred vision since morning prior to this visit. The patient states that few days ago she was admitted in another hospital and and leave the hospital AMA and since morning she felt weak, dizzy and fall on the right side getting hurt into the right shoulder and pelvis and also complaint of blurred vision and tremor since morning. On arrival the patient was hypotensive 90/48 and desaturating and given 500 NS IV bolus that raise the blood pressure to 108/61 and on 5 L oxygen with saturation 97%. She denies headache, chest pain, nausea, vomiting, diaphoresis, incontinence, any specific weakness any parts of the body. PAST MEDICAL HISTORY: DM, HTN Surgical History: Denies all surgeries [employer] REFINING History: Denies all [employer]PER[employer]FIN[employer] Hx Family History Family History: Reviewed,noncontributory to illness Social History Smoker: Cigarettes, Greater Than 1 Pack/Day Alcohol: Occasionally Drugs: Denies Drug Use Lives In: Home Patient Family History: Alzheimer's disease grandpa Cardiovascular disease grandpa Cerebrovascular accident (CVA) grandpa Chronic obstructive pulmonary disease G8 MOTHER Depression G8 MOTHER Diabetes mellitus grandpa FH: cancer FH: schizophrenia Hypertension grandpa Allergies: Coded Allergies: Codeine (Verified Allergy, Unknown, itching, 12/26/24) not from norco per patient Morphine (Verified Allergy, Unknown, 12/25/24) Penicillins (Verified Allergy, Unknown, 12/25/24) Home Meds Reported Medications Cenobamate (Xcopri) 200 Mg Tab, 200 MG PO HS for 30 Days, #30 TAB 12/28/24 Cenobamate (Xcopri) 150 Mg Tab, 150 MG PO DAILY for 30 Days, #30 TAB 12/28/24 Cenobamate (XCOPRI 14 x 150 MG & 14 x200 MG) 1 Walker Walker, 1 WALKER PO BID for 30 Days, #60 PACK 12/28/24 Cenobamate (XCOPRI 14 x 150 MG & 14 x200 MG) 1 Walker Walker, 1 WALKER PO BID for 30 Days, #30 PACK 2 Refills 12/28/24 Insulin Lispro (Insulin Lispro) 100 Unit/Ml Inj, 100 UNIT IJ, INJ 7/17/25 Oxcarbazepine (OXTELLAR XR) 150 Mg Tab, 150 MG PO BID, TAB 12/25/24 Temazepam (Restoril) 15 Mg Cp, 1 CAP PO QPM, #30 CAP 1 Refill 12/25/24 Oxcarbazepine (Trileptal) 600 Mg Tab, 600 MG PO BID for seizure, TAB 12/25/24 Valsartan-Hydrochlorothiazide (Diovan Hct) 160 /12.5 Tab, 1 TAB PO DAILY, #30 TAB 5 Refills 12/25/24 Baclofen (Baclofen) 10 Mg Tab, 10 MG PO BID, MG 12/25/24 Lorazepam (Lorazepam) 1 Mg Tab, 1 MG PO DAILY, TAB 12/25/24 Quetiapine Fumerate (Seroquel) 25 Mg Tab, 25 MG PO for anxiety for 30 Days, MG 12/25/24 Fluoxetine Hcl (Fluoxetine Hcl) 20 Mg Cap, 20 MG PO DAILY, MG 12/25/24 Hydroxychloroquine Sulfate (Hydroxychloroquine Sulfat) 200 Mg Tab, 200 MG PO BID for lupus , MG 12/25/24 Quetiapine Fumerate (Seroquel) 50 Mg Tab, 800 MG PO DAILY@DINNER for 30 Days, MG 12/25/24 Hydrocodone-Acetaminophen (Hydrocodone Bitartrate/AC 10-325 mg) 1 Tab Tab, 1 TAB PO TID, TAB 12/25/24 Gabapentin (Gabapentin) 300 Mg Cap, 300 MG PO TID, MG 12/25/24 Vital Signs Vital Signs Date Time Temp Pulse Resp B/P (MAP) Pulse Ox O2 Delivery O2 Flow Rate FiO2 01/28/25 15:20 81 12 111/67 (82) 98 01/28/25 14:10 Nasal Cannula* 6 44 01/28/25 12:24 97.8 97.8 Physical Exam Generally-49 years old woman, overweight, lying in bed. Asleep no apparent distress HEENT-atraumatic normocephalic Heart-regular rate and rhythm Lungs decreased breath sounds bilaterally lower lung richardson Abdomen soft nontender nondistended Musculoskeletal-no edema cyanosis Neuro-asleep, groggy, unspecified questions, follow commands. Strength and sensory intact SEPSIS Sepsis Screen Date sepsis recognized/suspect: Jan 28, 2025 Time Sepsis recognized/suspect: 1223 Recent Procedure: No On Antibiotic Therapy: No Respiratory Rate >20: Yes Heart Rate >90: No Temp<36 C (96.8 F) or >38.3 C: No SBP <90 or MAP <65 mmHG: No New Acute Mental Status Change: No Is the patient on CPAP, BIPAP,: No Physician Orders Electrocardigram (01/28/25 12:12) Chest Portable (01/28/25 12:14) Head Without Contrast (01/28/25 12:14) Ceftriaxone Ivpb Rocephin (01/29/25 09:00) Azithromycin 500mg/ 250ml (Zithromax 50 (01/29/25 10:00) Respiratory Culture W/ Gs (01/28/25 17:10) C-Reactive Protein (01/28/25 17:10) Albuterol Medneb (Ventolin Medneb) (01/28/25 17:15) Ipratropium Medneb (Atrovent Medneb) (01/28/25 18:00) Procalcitonin (01/28/25 17:10) NS (01/28/25 17:15) Vital Signs Date Time Temp Pulse Resp B/P (MAP) Pulse Ox O2 Delivery O2 Flow Rate FiO2 01/28/25 15:20 81 12 111/67 (82) 98 01/28/25 14:10 14 99 Nasal Cannula* 6 44 01/28/25 13:20 84 22 117/68 (84) 98 01/28/25 13:20 84 22 98 Nasal Cannula* 6 44 01/28/25 12:34 83 01/28/25 12:24 97.8 80 23 100/72 (81) 96 97.8 01/28/25 12:23 80 23 96 Nasal Cannula* 6 44 01/28/25 12:14 81 01/28/25 12:01 97.5 80 18 120/88 96 97.5 Laboratory Tests Test 01/28/25 12:42 Lactic Acid Level 1.6 mmol/L (0.4-2.0) White Blood Count 8.3 10^3/uL (4.4-10.8) Medications Medications Dose Ordered Sig/Rolly Route Start Time Stop Time Status Last Admin Dose Admin Albuterol 2.5 mg ONCE ONCE NEB 01/28/25 13:45 01/28/25 13:47 DC 01/28/25 14:09 Azithromycin 250 ml @ 125 mls/hr ONCE ONCE IV 01/28/25 15:00 01/28/25 16:59 DC 01/28/25 15:10 Ceftriaxone Sodium 50 ml @ 50 mls/hr ONCE ONCE IV 01/28/25 13:45 01/28/25 14:44 DC 01/28/25 14:00 Ipratropium [place] 0.5 mg ONCE ONCE NEB 01/28/25 13:45 01/28/25 13:47 DC 01/28/25 14:09 Sodium Chloride 500 ml @ 500 mls/hr Q1H ONCE IV 01/28/25 12:15 01/28/25 13:14 DC 01/28/25 12:24 Results Labs Test 01/28/25 14:10 01/28/25 12:42 Range/Units Urine Color Yellow Yellow Urine Clarity Clear Clear Urine pH 6.0 5.0-9.0 Urine Specific Levels 1.016 1.001-1.035 Urine Protein 2+ H Negative Urine Ketones Negative Negative Urine Blood Negative Negative /uL Urine Nitrite Negative Negative Urine Bilirubin Negative Negative Urine Urobilinogen Normal Negative mg/dL Urine Leukocyte Esterase Negative Negative /uL Urine RBC 1 0 - 4 /hpf Urine Microscopic WBC 1 0-5 /HPF Urine Squamous Epithelial Cells Few <5 /hpf Urine Bacteria None seen None Seen /hpf Urine Hyaline Casts Mod 0 - 2 /lpf Urine Glucose Trace Normal mg/dL Urine Opiates Screen Pos NEGATIVE Urine Fentanyl Screen Neg NEGATIVE Urine Barbiturates Screen Neg NEGATIVE Urine Phencyclidine Screen Neg NEGATIVE Urine Amphetamines Screen Neg NEGATIVE Urine Benzodiazepines Screen Pos NEGATIVE Urine Cocaine Screen Neg NEGATIVE Urine Cannabinoids Screen Pos NEGATIVE White Blood Count 8.3 4.4-10.8 10^3/uL Red Blood Count 5.01 4.0-5.20 10^6/uL Hemoglobin 14.5 12.2-16.2 g/dL Hematocrit 43.5 36.0-46.0 % Mean Corpuscular Volume 86.9 80.0-100.0 fL Mean Corpuscular Hemoglobin 29.0 28.0-32.0 pg Mean Corpuscular Hemoglobin Concent 33.4 32.0-36.0 g/dL Red Cell Distribution Width 14.2 11.8-14.3 % Platelet Count 112 L 140-450 10^3/uL Mean Platelet Volume 8.6 6.9-10.8 fL Neutrophils (%) (Auto) 64.9 37.0-80.0 % Lymphocytes (%) (Auto) 27.0 10.0-50.0 % Monocytes (%) (Auto) 5.7 0.0-12.0 % Eosinophils (%) (Auto) 1.8 0.0-7.0 % Basophils (%) (Auto) 0.6 0.0-2.0 % Neutrophils # (Auto) 5.4 1.6-8.6 10 ^3/uL Lymphocytes # (Auto) 2.2 0.4-5.4 10 ^3/uL Monocytes # (Auto) 0.5 0-1.3 10 ^3/uL Eosinophils # (Auto) 0.1 0-0.8 10 ^3/uL Basophils # (Auto) 0.1 0-0.2 10 ^3/uL Nucleated Red Blood Cells 0.2 % D-Dimer, Quantitative 0.32 0.0-0.49 mg/L FEU Sodium Level 135 L 136-145 mmol/L Potassium Level 3.8 3.5-5.1 mmol/L Chloride Level 92 L 98-107 mmol/L Carbon Dioxide Level 32 H 20-31 mmol/L Anion Gap 11 5-15 Blood Urea Nitrogen 43 H 9-23 mg/dL Creatinine 3.85 H 0.550-1.02 mg/dL Glomerular Filtration Rate Calc 14 >90 mL/min BUN/Creatinine Ratio 11.2 10.0-20.0 Serum Glucose 194 H 74-106 mg/dL Lactic Acid Level 1.6 0.4-2.0 mmol/L Calcium Level 10.3 8.7-10.4 mg/dL Total Bilirubin 0.2 0.2-1.0 mg/dL Aspartate Amino Transferase (AST) 45 H 13-40 U/L Alanine Aminotransferase (ALT) 18 7-40 U/L Alkaline Phosphatase 142 H 46-116 U/L Ammonia 12 11-32 umol/L Troponin I High Sensitivity < 3 L </=34 ng/L B-Type Natriuretic Peptide 42.86 0-100 pg/mL Total Protein 7.7 5.7-8.2 g/dL Albumin 4.3 3.2-4.8 g/dL Primary Diagnosis Bilateral lower lung pneumonia Fall THC use FARHAN on CKD Plan Urine drug positive for opiate, benzo, THC. Patient has not ever Zofran benzos here possibly in prior hospital. IV fluids Kidney ultrasound Ceftriaxone and azithromycin for broad-spectrum antibiotics Check sputum culture Albuterol and ipratropium nebulizer q.4 Check procalcitonin, CRP Resume home meds Full code Heparin for DVT prophylaxis PPI for GI prophylaxis Plan discussed with: Patient Problems List: (1) Acute hypoxic respiratory failure Status: Acute (2) Pneumonia Status: Acute Date of Service: Jan 28, 2025 Billing Provider: JULIO JENKINS MD Common Visit Codes: [id number] INP/OBS CARE (HIGH) JULIO JENKINS MD Jan 28, 2025 17:17
[2025-01-28] MEDS ORDERED: SODIUM CHLORIDE 0.9% 500 ML IV ONE (17:30)
--- NOTE | 2025-01-28 18:01 | DVH ---
CLINICAL HISTORY: sanket on ckd TECHNIQUE: Complete ultrasound exam of the kidneys and bladder was performed. COMPARISON: None FINDINGS: The right kidney has normal echogenicity and measures 12.9 cm. There is no focal parenchymal abnormal ity or evidence for stone. There is no hydronephrosis. The left kidney has normal echogenicity and measures 10.8 cm. There is no focal parenchymal abnormal ity or evidence for stone. There is no hydronephrosis. The bladder is not seen, likely due to decompression by baldwin catheter. IMPRESSION: NO SIGNIFICANT SONOGRAPHIC ABNORMALITY OF THE KIDNEYS.
--- NOTE | 2025-01-28 18:34 | ECG ---
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
[2025-01-28] MEDS ORDERED: DEXTROSE (50%) 50ML SYRG IV PRN (19:15)
[2025-01-28] MEDS ORDERED: LORazepam 2MG/ML-1ML VIAL IV PRN (19:15)
[2025-01-28] MEDS: ALBUTEROL SULF 2.5 MG/0.5ML(0.5%) NEB SOLN NEB PRN (19:32)
[2025-01-28] MEDS: IPRATROPIUM BROM 0.5 MG/2.5ML INH SOL NEB SCH (19:32)
[2025-01-28] MEDS: SODIUM CHLOR 0.9% PF (SALINE LOCK) 10ML VIAL/SYR IV SCH (21:08)
[2025-01-28] MEDS: HEPARIN SODIUM (PORCINE) 5000 UNITS/ML 1ML VIAL SC SCH (21:10)
[2025-01-28] MEDS: SODIUM CHLORIDE 0.9% 1,000 ML IV ONE (21:15)
[2025-01-28] MEDS: InsuLIN REG 1unit/0.01ml Soln (100units/ml) SC SCH (22:07)
[2025-01-28] MEDS: ACCU-CHEK COMFORT CURVE STRIP VI SCH (22:08)
[2025-01-29] VITALS (15 sets, daily range): BP systolic 107–161; BP diastolic 69–86; PULSE 79–102; RESP 16–21; TEMP 96.7–98.6; O2SAT 92–100
[2025-01-29] MEDS: HYDROcodone-ACET 5/325MG TAB PO PRN (06:28)
[2025-01-29] MEDS: ONDANSETRON HCL 4 MG/2 ML VIAL IV PRN (06:28)
[2025-01-29 07:18] LABS: Hematocrit 41.1 % (36.0-46.0); Hemoglobin 13.7 g/dL (12.2-16.2); Mean Corpuscular Hemoglobin 29.1 pg (28.0-32.0); Mean Corpuscular Volume 87.1 fL (80.0-100.0); Nucleated Red Blood Cells % 0.3 %
[2025-01-29 07:25] LABS: Alanine Aminotransferase 19 U/L (7-40); Albumin 4.0 g/dL (3.2-4.8); Anion Gap 10 (5-15); BUN/Creatinine Ratio 14.0 (10.0-20.0); Calcium 9.9 mg/dL (8.7-10.4); Potassium 4.2 mmol/L (3.5-5.1); Sodium 137 mmol/L (136-145); Total Protein 7.3 g/dL (5.7-8.2)
[2025-01-29 07:29] LABS: Alkaline Phosphatase 163 U/L (46-116); Bilirubin, Total 0.2 mg/dL (0.2-1.0); Blood Urea Nitrogen 33 mg/dL (9-23); Carbon Dioxide 32 mmol/L (20-31); Chloride 95 mmol/L (98-107); Glucose 166 mg/dL (74-106)
[2025-01-29] MEDS: PANTOPRAZOLE 40 MG/10 ML VIAL INJ IV SCH (09:41)
[2025-01-29] MEDS: AZITHROMYCIN 500MG/ 250ML 250 ML IV SCH (09:42)
[2025-01-29] MEDS: cefTRIAXone 1GM/50ML D5W 50 ML IV SCH (09:42)
[2025-01-29] MEDS: VALSARTAN 80 MG TAB PO SCH (09:46)
--- NOTE | 2025-01-29 13:10 | DVHINCON2 ---
Date of service: Jan 29, 2025 Referring Physician Hospitalist Reason for Consultation Acute kidney injury History of Present Illness 49-year-old female with past medical history of chronic kidney disease stage IIIB known to renal clinic other history includes diabetes, hypertension, atrophic left kidney, history of seizure disorder, history of treated hepatitis, and reported history of lupus not on medications. Patient presents to the hospital complaining of weakness and slurred speech. Was found to have hypotension. Nephrology is consulted due to elevated creatinine level Allergies: Coded Allergies: Codeine (Verified Allergy, Unknown, itching, 12/26/24) not from norco per patient Morphine (Verified Allergy, Unknown, 12/25/24) Penicillins (Verified Allergy, Unknown, 12/25/24) Home Meds Reported Medications Cenobamate (Xcopri) 200 Mg Tab, 200 MG PO HS for 30 Days, #30 TAB 12/28/24 Cenobamate (Xcopri) 150 Mg Tab, 150 MG PO DAILY for 30 Days, #30 TAB 12/28/24 Cenobamate (XCOPRI 14 x 150 MG & 14 x200 MG) 1 Walker Walker, 1 WALKER PO BID for 30 Days, #60 PACK 12/28/24 Cenobamate (XCOPRI 14 x 150 MG & 14 x200 MG) 1 Walker Walker, 1 WALKER PO BID for 30 Days, #30 PACK 2 Refills 12/28/24 Insulin Lispro (Insulin Lispro) 100 Unit/Ml Inj, 100 UNIT IJ, INJ 12/25/24 Oxcarbazepine (OXTELLAR XR) 150 Mg Tab, 150 MG PO BID, TAB 12/25/24 Temazepam (Restoril) 15 Mg Cp, 1 CAP PO QPM, #30 CAP 1 Refill 12/25/24 Oxcarbazepine (Trileptal) 600 Mg Tab, 600 MG PO BID for seizure, TAB 12/25/24 Valsartan-Hydrochlorothiazide (Diovan Hct) 160 /12.5 Tab, 1 TAB PO DAILY, #30 TAB 5 Refills 12/25/24 Baclofen (Baclofen) 10 Mg Tab, 10 MG PO BID, MG 12/25/24 Lorazepam (Lorazepam) 1 Mg Tab, 1 MG PO DAILY, TAB 12/25/24 Quetiapine Fumerate (Seroquel) 25 Mg Tab, 25 MG PO for anxiety for 30 Days, MG 12/25/24 Fluoxetine Hcl (Fluoxetine Hcl) 20 Mg Cap, 20 MG PO DAILY, MG 12/25/24 Hydroxychloroquine Sulfate (Hydroxychloroquine Sulfat) 200 Mg Tab, 200 MG PO BID for lupus , MG 12/25/24 Quetiapine Fumerate (Seroquel) 50 Mg Tab, 800 MG PO DAILY@DINNER for 30 Days, MG 12/25/24 Hydrocodone-Acetaminophen (Hydrocodone Bitartrate/AC 10-325 mg) 1 Tab Tab, 1 TAB PO TID, TAB 12/25/24 Gabapentin (Gabapentin) 300 Mg Cap, 300 MG PO TID, MG 12/25/24 Current Medications Current Medications Medications (Trade) Dose Ordered Sig/Rolly Route PRN Reason Start Time Stop Time Status Last Admin Ceftriaxone Sodium 50 ml @ 100 mls/hr DAILY@09 IV 01/29/25 09:00 01/29/25 09:42 Azithromycin 250 ml @ 125 mls/hr DAILY IV 01/29/25 10:00 01/29/25 09:42 Albuterol (Ventolin Medneb) 2.5 mg Q4HPRN PRN NEB SHORTNESS OF BREATH 01/28/25 17:15 01/29/25 10:28 Ipratropium [place] (Atrovent Medneb) 0.5 mg Q4HWA NEB 01/28/25 18:00 01/29/25 10:28 Sodium Chloride (Saline Lock Ns) 10 ml Q8HR IV 01/28/25 22:00 01/29/25 06:23 Docusate Sodium (Colace Capsule) 100 mg BIDPRN PRN PO FOR CONSTIPATION 01/28/25 17:15 Acetaminophen (Tylenol Tablet) 650 mg Q6HP PRN PO PAIN SCALE 1-3 OR TEMP>100.4 01/28/25 17:15 Acetaminophen/ Hydrocodone Bitart ([place] 5/325MG Tab) 1 tab Q4HP PRN PO MODERATE PAIN (4-6 PAIN SCALE) 01/28/25 17:15 01/29/25 06:28 Ondansetron HCl (Zofran) 4 mg Q4HP PRN IV NAUSEA / VOMITING 01/28/25 17:15 01/29/25 06:28 Heparin Sodium (Porcine) 5,000 units Q12HR SC 01/28/25 22:00 01/29/25 09:45 Pantoprazole Sodium (Protonix) 40 mg DAILY IV 01/29/25 10:00 01/29/25 09:41 Lorazepam (Ativan Inj) 1 mg Q5MINP PRN IV SEIZURES 01/28/25 19:15 Diagnostic Test (Pha) (Accu-Chek Comfort Curve T) 1 strip ACHS 01/28/25 22:00 01/29/25 11:05 Insulin Human Regular (InsuLIN R) ACHS SC 01/28/25 22:00 01/29/25 11:42 Dextrose 50 ml UD PRN IV Blood Sugar LESS THAN 60 01/28/25 19:15 Valsartan (Diovan) 80 mg DAILY PO 01/29/25 10:00 Family History: Alzheimer's disease grandpa Cardiovascular disease grandpa Cerebrovascular accident (CVA) grandpa Chronic obstructive pulmonary disease G8 MOTHER Depression G8 MOTHER Diabetes mellitus grandpa FH: cancer FH: schizophrenia Hypertension grandpa Review of Systems Weakness slurred speech Dizziness H&P Exam Vital Signs/I&O Vital Sign Date Time Temp Pulse Resp B/P (MAP) Pulse Ox O2 Delivery O2 Flow Rate FiO2 01/29/25 10:34 94 16 99 01/29/25 10:28 Nasal Cannula 2.0 01/29/25 10:28 28 01/29/25 09:46 107/65 01/29/25 09:17 97.8 97.8 Intake and Output 01/28/25 01/29/25 19:00 07:00 Intake Total 800 ml 500 ml Output Total 1500 ml Balance 800 ml -1000 ml Intake Oral 500 ml IV Total 800 ml Output Urine Total 1500 ml Physical Exam Middle-aged female Not overt distress Abdomen is soft No pitting edema Labs/Diagnostic Data Labs/Diagnostic Data Laboratory Tests Test 01/29/25 10:55 01/29/25 06:03 01/29/25 05:17 01/28/25 22:01 Range/Units POC Glucose 341 H 200 H 217 H 70-106 mg/dl White Blood Count 9.0 4.4-10.8 10^3/uL Red Blood Count 4.72 4.0-5.20 10^6/uL Hemoglobin 13.7 12.2-16.2 g/dL Hematocrit 41.1 36.0-46.0 % Mean Corpuscular Volume 87.1 80.0-100.0 fL Mean Corpuscular Hemoglobin 29.1 28.0-32.0 pg Mean Corpuscular Hemoglobin Concent 33.4 32.0-36.0 g/dL Red Cell Distribution Width 13.9 11.8-14.3 % Platelet Count 107 L 140-450 10^3/uL Mean Platelet Volume 9.5 6.9-10.8 fL Neutrophils (%) (Auto) 75.8 37.0-80.0 % Lymphocytes (%) (Auto) 17.1 10.0-50.0 % Monocytes (%) (Auto) 5.2 0.0-12.0 % Eosinophils (%) (Auto) 1.4 0.0-7.0 % Basophils (%) (Auto) 0.5 0.0-2.0 % Neutrophils # (Auto) 6.8 1.6-8.6 10 ^3/uL Lymphocytes # (Auto) 1.5 0.4-5.4 10 ^3/uL Monocytes # (Auto) 0.5 0-1.3 10 ^3/uL Eosinophils # (Auto) 0.1 0-0.8 10 ^3/uL Basophils # (Auto) 0 0-0.2 10 ^3/uL Nucleated Red Blood Cells 0.3 % Sodium Level 137 136-145 mmol/L Potassium Level 4.2 3.5-5.1 mmol/L Chloride Level 95 L 98-107 mmol/L Carbon Dioxide Level 32 H 20-31 mmol/L Anion Gap 10 5-15 Blood Urea Nitrogen 33 #H 9-23 mg/dL Creatinine 2.35 #H 0.550-1.02 mg/dL Glomerular Filtration Rate Calc 25 >90 mL/min BUN/Creatinine Ratio 14.0 10.0-20.0 Serum Glucose 166 H 74-106 mg/dL Calcium Level 9.9 8.7-10.4 mg/dL Total Bilirubin 0.2 0.2-1.0 mg/dL Aspartate Amino Transferase (AST) 43 H 13-40 U/L Alanine Aminotransferase (ALT) 19 7-40 U/L Alkaline Phosphatase 163 H 46-116 U/L Total Protein 7.3 5.7-8.2 g/dL Albumin 4.0 3.2-4.8 g/dL Test 01/28/25 14:10 01/28/25 12:42 Range/Units Urine Color Yellow Yellow Urine Clarity Clear Clear Urine pH 6.0 5.0-9.0 Urine Specific [place] 1.016 1.001-1.035 Urine Protein 2+ H Negative Urine Ketones Negative Negative Urine Blood Negative Negative /uL Urine Nitrite Negative Negative Urine Bilirubin Negative Negative Urine Urobilinogen Normal Negative mg/dL Urine Leukocyte Esterase Negative Negative /uL Urine RBC 1 0 - 4 /hpf Urine Microscopic WBC 1 0-5 /HPF Urine Squamous Epithelial Cells Few <5 /hpf Urine Bacteria None seen None Seen /hpf Urine Hyaline Casts Mod 0 - 2 /lpf Urine Glucose Trace Normal mg/dL Urine Opiates Screen Pos NEGATIVE Urine Fentanyl Screen Neg NEGATIVE Urine Barbiturates Screen Neg NEGATIVE Urine Phencyclidine Screen Neg NEGATIVE Urine Amphetamines Screen Neg NEGATIVE Urine Benzodiazepines Screen Pos NEGATIVE Urine Cocaine Screen Neg NEGATIVE Urine Cannabinoids Screen Pos NEGATIVE White Blood Count 8.3 4.4-10.8 10^3/uL Red Blood Count 5.01 4.0-5.20 10^6/uL Hemoglobin 14.5 12.2-16.2 g/dL Hematocrit 43.5 36.0-46.0 % Mean Corpuscular Volume 86.9 80.0-100.0 fL Mean Corpuscular Hemoglobin 29.0 28.0-32.0 pg Mean Corpuscular Hemoglobin Concent 33.4 32.0-36.0 g/dL Red Cell Distribution Width 14.2 11.8-14.3 % Platelet Count 112 L 140-450 10^3/uL Mean Platelet Volume 8.6 6.9-10.8 fL Neutrophils (%) (Auto) 64.9 37.0-80.0 % Lymphocytes (%) (Auto) 27.0 10.0-50.0 % Monocytes (%) (Auto) 5.7 0.0-12.0 % Eosinophils (%) (Auto) 1.8 0.0-7.0 % Basophils (%) (Auto) 0.6 0.0-2.0 % Neutrophils # (Auto) 5.4 1.6-8.6 10 ^3/uL Lymphocytes # (Auto) 2.2 0.4-5.4 10 ^3/uL Monocytes # (Auto) 0.5 0-1.3 10 ^3/uL Eosinophils # (Auto) 0.1 0-0.8 10 ^3/uL Basophils # (Auto) 0.1 0-0.2 10 ^3/uL Nucleated Red Blood Cells 0.2 % D-Dimer, Quantitative 0.32 0.0-0.49 mg/L FEU Sodium Level 135 L 136-145 mmol/L Potassium Level 3.8 3.5-5.1 mmol/L Chloride Level 92 L 98-107 mmol/L Carbon Dioxide Level 32 H 20-31 mmol/L Anion Gap 11 5-15 Blood Urea Nitrogen 43 H 9-23 mg/dL Creatinine 3.85 H 0.550-1.02 mg/dL Glomerular Filtration Rate Calc 14 >90 mL/min BUN/Creatinine Ratio 11.2 10.0-20.0 Serum Glucose 194 H 74-106 mg/dL Lactic Acid Level 1.6 0.4-2.0 mmol/L Calcium Level 10.3 8.7-10.4 mg/dL Total Bilirubin 0.2 0.2-1.0 mg/dL Aspartate Amino Transferase (AST) 45 H 13-40 U/L Alanine Aminotransferase (ALT) 18 7-40 U/L Alkaline Phosphatase 142 H 46-116 U/L Ammonia 12 11-32 umol/L Troponin I High Sensitivity < 3 L </=34 ng/L C-Reactive Protein High Sensitivity 3.47 H <1.0 mg/dL B-Type Natriuretic Peptide 42.86 0-100 pg/mL Total Protein 7.7 5.7-8.2 g/dL Albumin 4.3 3.2-4.8 g/dL Assessment 49-year-old female with known history of chronic kidney disease stage 3 hypertension and diabetes presents to the hospital complaining of dizziness. She was found to have hypotension. Acute kidney injury hemodynamically mediated Chronic kidney disease stage IIIB. dr morrison Uncontrolled diabetes Hypertension presently hypotensive on this admission Dizziness Hold blood pressure medications currently with holding parameters Status post IV fluids CT head negative ensure workup to rule out stroke Cardiovascular assessment Recommend adequate glycemic control with diabetic medications. Rest of care as per primary medical team. Care time 55 minutes Plan discussed with: Patient DOTTIEMannyKELLI MD Jan 29, 2025 13:10
--- NOTE | 2025-01-29 13:22 | DVHPN2 ---
Reviewed: Care Plan, H&P, Labs, Medications, Previous Orders, Radiology Changes from previous H/P or p: No Changes Objective Vitals Vital Signs Date Time Temp Pulse Resp B/P (MAP) Pulse Ox O2 Delivery O2 Flow Rate FiO2 01/29/25 10:34 94 16 99 01/29/25 10:28 Nasal Cannula 2.0 01/29/25 10:28 28 01/29/25 09:46 107/65 01/29/25 09:17 97.8 97.8 Intake/Output Intake and Output 01/29/25 07:00 Intake Total 1300 ml Output Total 1500 ml Balance -200 ml Intake Oral 500 ml IV Total 800 ml Output Urine Total 1500 ml Medications Current Medications Medications Dose Ordered Sig/Rolly Route Start Time Stop Time Status Last Admin Dose Admin Ceftriaxone Sodium 50 ml @ 100 mls/hr DAILY@09 IV 01/29/25 09:00 01/29/25 09:42 100 MLS/HR Azithromycin 250 ml @ 125 mls/hr DAILY IV 01/29/25 10:00 01/29/25 09:42 125 MLS/HR Albuterol 2.5 mg Q4HPRN PRN NEB 01/28/25 17:15 01/29/25 10:28 2.5 MG Ipratropium [place] 0.5 mg Q4HWA NEB 01/28/25 18:00 01/29/25 10:28 0.5 MG Sodium Chloride 10 ml Q8HR IV 01/28/25 22:00 01/29/25 06:23 10 ML Docusate Sodium 100 mg BIDPRN PRN PO 01/28/25 17:15 Acetaminophen 650 mg Q6HP PRN PO 01/28/25 17:15 Acetaminophen/ Hydrocodone Bitart 1 tab Q4HP PRN PO 01/28/25 17:15 01/29/25 06:28 1 TAB Ondansetron HCl 4 mg Q4HP PRN IV 01/28/25 17:15 01/29/25 06:28 4 MG Heparin Sodium (Porcine) 5,000 units Q12HR SC 01/28/25 22:00 01/29/25 09:45 5,000 UNITS Pantoprazole Sodium 40 mg DAILY IV 01/29/25 10:00 01/29/25 09:41 40 MG Lorazepam 1 mg Q5MINP PRN IV 01/28/25 19:15 Diagnostic Test (Pha) 1 strip ACHS 01/28/25 22:00 01/29/25 11:05 1 STRIP Insulin Human Regular ACHS SC 01/28/25 22:00 01/29/25 11:42 8 UNITS Dextrose 50 ml UD PRN IV 01/28/25 19:15 Valsartan 80 mg DAILY PO 01/29/25 10:00 Laboratory Results Laboratory Tests 01/29/25 05:17 Chemistry Test 01/29/25 05:17 Albumin 4.0 g/dL (3.2-4.8) Calcium Level 9.9 mg/dL (8.7-10.4) Total Protein 7.3 g/dL (5.7-8.2) LFT Test 01/29/25 05:17 Alanine Aminotransferase (ALT) 19 U/L (7-40) Alkaline Phosphatase 163 U/L (46-116) H Aspartate Amino Transferase (AST) 43 U/L (13-40) H Total Bilirubin 0.2 mg/dL (0.2-1.0) Urinalysis Test 01/28/25 14:10 Urine Color Yellow (Yellow) Urine Clarity Clear (Clear) Urine pH 6.0 (5.0-9.0) Urine Specific [place] 1.016 (1.001-1.035) Urine Protein 2+ (Negative) H Urine Ketones Negative (Negative) Urine Blood Negative /uL (Negative) Urine Nitrite Negative (Negative) Urine Bilirubin Negative (Negative) Urine Urobilinogen Normal mg/dL (Negative) Urine Leukocyte Esterase Negative /uL (Negative) Urine RBC 1 /hpf (0 - 4) Urine Microscopic WBC 1 /HPF (0-5) Urine Squamous Epithelial Cells Few /hpf (<5) Urine Bacteria None seen /hpf (None Seen) Urine Hyaline Casts Mod /lpf (0 - 2) Urine Glucose Trace mg/dL (Normal) Labs and/or images reviewed: Labs reviewed by me, Image(s) reviewed by me Assessment/Plan Assessment/Plan Sepsis secondary to community-acquired pneumonia Gram-positive/Gram-negative: Rocephin azithromycin albuterol Atrovent Rapid flu test pending Josee test pending CKD three: Consult by Dr. zambrano History of atrophic left kidney uncontrolled diabetes: Insulin sliding scale Hypertension History of seizures History of hepatitis History of lupus not on treatment Time spent 50 minutes Advanced care planning time 20 minutes Plan discussed with: Patient Date of Service: Jan 29, 2025 Billing Provider: CARLOS VO MD Common Visit Codes: [id number] INP/OBS CARE(HIGH) Secondary Visit Codes: [id number] CARE PLAN 30 MINUTES CARLOS VO MD Jan 29, 2025 13:22
[2025-01-29] MEDS: POLYETHYLENE GLYCOL 17 GM PWDR PO ONE (15:35)
[2025-01-30 01:00] VITALS: BP 147/80; PULSE 96; RESP 19; TEMP 98; O2SAT 93
[2025-01-30 05:00] VITALS: BP 150/76; PULSE 86; RESP 17; TEMP 98.1; O2SAT 96
[2025-01-30 06:57] LABS: Hematocrit 40.4 % (36.0-46.0); Hemoglobin 13.6 g/dL (12.2-16.2); Mean Corpuscular Hemoglobin 29.5 pg (28.0-32.0); Mean Corpuscular Volume 87.5 fL (80.0-100.0); Nucleated Red Blood Cells % 0.1 %
[2025-01-30 07:02] LABS: Alanine Aminotransferase 15 U/L (7-40); Anion Gap 10 (5-15); BUN/Creatinine Ratio 11.2 (10.0-20.0); Blood Urea Nitrogen 15 mg/dL (9-23); Calcium 9.8 mg/dL (8.7-10.4); Carbon Dioxide 29 mmol/L (20-31); Chloride 98 mmol/L (98-107); Potassium 4.3 mmol/L (3.5-5.1); Sodium 137 mmol/L (136-145); Total Protein 7.2 g/dL (5.7-8.2)
[2025-01-30 07:03] LABS: Albumin 4.2 g/dL (3.2-4.8); Alkaline Phosphatase 148 U/L (46-116); Bilirubin, Total 0.3 mg/dL (0.2-1.0); Glucose 111 mg/dL (74-106)
--- NOTE | 2025-01-30 08:19 | DVHPN2 ---
Reviewed: Care Plan, H&P, Labs, Medications, Previous Orders, Radiology Changes from previous H/P or p: No Changes Objective Vitals Vital Signs Date Time Temp Pulse Resp B/P (MAP) Pulse Ox O2 Delivery O2 Flow Rate FiO2 01/30/25 05:00 98.1 86 17 150/76 (100) 96 98.1 01/29/25 22:24 Nasal Cannula* 3 32 Intake/Output Intake and Output 01/30/25 07:00 Intake Total 1225 ml Output Total 1850 ml Balance -625 ml Intake Oral 1225 ml Output Urine Total 1850 ml Medications Current Medications Medications Dose Ordered Sig/Rolly Route Start Time Stop Time Status Last Admin Dose Admin Ceftriaxone Sodium 50 ml @ 100 mls/hr DAILY@09 IV 01/29/25 09:00 01/29/25 09:42 100 MLS/HR Azithromycin 250 ml @ 125 mls/hr DAILY IV 01/29/25 10:00 01/29/25 09:42 125 MLS/HR Albuterol 2.5 mg Q4HPRN PRN NEB 01/28/25 17:15 01/29/25 22:24 2.5 MG Ipratropium [place] 0.5 mg Q4HWA NEB 01/28/25 18:00 01/29/25 22:24 0.5 MG Sodium Chloride 10 ml Q8HR IV 01/28/25 22:00 01/30/25 06:16 10 ML Docusate Sodium 100 mg BIDPRN PRN PO 01/28/25 17:15 Acetaminophen 650 mg Q6HP PRN PO 01/28/25 17:15 Acetaminophen/ Hydrocodone Bitart 1 tab Q4HP PRN PO 01/28/25 17:15 01/30/25 03:19 1 TAB Ondansetron HCl 4 mg Q4HP PRN IV 01/28/25 17:15 01/30/25 03:18 4 MG Heparin Sodium (Porcine) 5,000 units Q12HR SC 01/28/25 22:00 01/29/25 21:37 5,000 UNITS Pantoprazole Sodium 40 mg DAILY IV 01/29/25 10:00 01/29/25 09:41 40 MG Lorazepam 1 mg Q5MINP PRN IV 01/28/25 19:15 Diagnostic Test (Pha) 1 strip ACHS 01/28/25 22:00 01/30/25 06:16 1 STRIP Insulin Human Regular ACHS SC 01/28/25 22:00 01/29/25 21:38 4 UNITS Dextrose 50 ml UD PRN IV 01/28/25 19:15 Valsartan 80 mg DAILY PO 01/29/25 10:00 Laboratory Results Laboratory Tests 01/30/25 05:33 Chemistry Test 01/30/25 05:33 Albumin 4.2 g/dL (3.2-4.8) Calcium Level 9.8 mg/dL (8.7-10.4) Total Protein 7.2 g/dL (5.7-8.2) LFT Test 01/30/25 05:33 Alanine Aminotransferase (ALT) 15 U/L (7-40) Alkaline Phosphatase 148 U/L (46-116) H Aspartate Amino Transferase (AST) 36 U/L (13-40) Total Bilirubin 0.3 mg/dL (0.2-1.0) Urinalysis Test 01/28/25 14:10 Urine Color Yellow (Yellow) Urine Clarity Clear (Clear) Urine pH 6.0 (5.0-9.0) Urine Specific [place] 1.016 (1.001-1.035) Urine Protein 2+ (Negative) H Urine Ketones Negative (Negative) Urine Blood Negative /uL (Negative) Urine Nitrite Negative (Negative) Urine Bilirubin Negative (Negative) Urine Urobilinogen Normal mg/dL (Negative) Urine Leukocyte Esterase Negative /uL (Negative) Urine RBC 1 /hpf (0 - 4) Urine Microscopic WBC 1 /HPF (0-5) Urine Squamous Epithelial Cells Few /hpf (<5) Urine Bacteria None seen /hpf (None Seen) Urine Hyaline Casts Mod /lpf (0 - 2) Urine Glucose Trace mg/dL (Normal) Microbiology Microbiology Date/Time Source Procedure Growth Status 01/29/25 01:49 Nose MRSA Screen - Final Complete Labs and/or images reviewed: Labs reviewed by me, Image(s) reviewed by me Assessment/Plan Assessment/Plan Sepsis secondary to community-acquired pneumonia Gram-positive/Gram-negative: Rocephin azithromycin albuterol Atrovent Rapid flu test pending Josee test pending Acute asthma exacerbation: Albuterol Atrovent Solu-Medrol Patient does not use oxygen at home CKD three: Consult by Dr. zambrano History of atrophic left kidney uncontrolled diabetes: Insulin sliding scale Hypertension History of seizures History of hepatitis Chronic current smoker: Refuses patch, counseling more than 20 mts History of lupus not on treatment Time spent 50 minutes Advanced care planning time 20 minutes Plan discussed with: Patient My Orders Orders - CARLOS VO MD Procedure Category Date Status Time Covid19 Antigen Kathya LAB 01/29/25 Logged Rapid Influenza A&B LAB 01/29/25 Logged 13:20 Cleanse Wound With YANETH 01/29/25 In Process Mild Soap A 11:28 Date of Service: Jan 30, 2025 Billing Provider: CARLOS VO MD Common Visit Codes: [id number] INP/OBS CARE(HIGH) CARLOS VO MD Jan 30, 2025 08:19
[2025-01-30 08:53] VITALS: BP 172/95; PULSE 86; RESP 18; TEMP 96.6; O2SAT 97
--- NOTE | 2025-01-30 09:06 | DVHPN2 ---
Progress Note Date Seen: Jan 30, 2025 Medical Necessity Reason Pt with a Central, PICC or Fol: No Subjective Patient reports: No new complaints Other Systems: Patient seen and examined by myself today in follow-up Objective vital signs Vital Sign Date Time Temp Pulse Resp B/P (MAP) Pulse Ox O2 Delivery O2 Flow Rate FiO2 01/30/25 08:53 96.6 86 18 172/95 (120) 97 96.6 01/29/25 22:24 Nasal Cannula* 3 32 Total Intake and Output 01/29/25 01/29/25 01/30/25 15:00 23:00 07:00 Intake Total 850 ml 375 ml Output Total 1000 ml 850 ml Balance -150 ml -475 ml medications Current Medications Medications Dose Ordered Sig/Rolly Route Start Time Stop Time Status Last Admin Dose Admin Ceftriaxone Sodium 50 ml @ 100 mls/hr DAILY@09 IV 01/29/25 09:00 01/29/25 09:42 100 MLS/HR Azithromycin 250 ml @ 125 mls/hr DAILY IV 01/29/25 10:00 01/29/25 09:42 125 MLS/HR Albuterol 2.5 mg Q4HPRN PRN NEB 01/28/25 17:15 01/29/25 22:24 2.5 MG Ipratropium [place] 0.5 mg Q4HWA NEB 01/28/25 18:00 01/29/25 22:24 0.5 MG Sodium Chloride 10 ml Q8HR IV 01/28/25 22:00 01/30/25 06:16 10 ML Docusate Sodium 100 mg BIDPRN PRN PO 01/28/25 17:15 Acetaminophen 650 mg Q6HP PRN PO 01/28/25 17:15 Acetaminophen/ Hydrocodone Bitart 1 tab Q4HP PRN PO 01/28/25 17:15 01/30/25 03:19 1 TAB Ondansetron HCl 4 mg Q4HP PRN IV 01/28/25 17:15 01/30/25 03:18 4 MG Heparin Sodium (Porcine) 5,000 units Q12HR SC 01/28/25 22:00 01/29/25 21:37 5,000 UNITS Pantoprazole Sodium 40 mg DAILY IV 01/29/25 10:00 01/29/25 09:41 40 MG Lorazepam 1 mg Q5MINP PRN IV 01/28/25 19:15 Diagnostic Test (Pha) 1 strip ACHS 01/28/25 22:00 01/30/25 06:16 1 STRIP Insulin Human Regular ACHS SC 01/28/25 22:00 01/29/25 21:38 4 UNITS Dextrose 50 ml UD PRN IV 01/28/25 19:15 Valsartan 80 mg DAILY PO 01/29/25 10:00 Methylprednisolone Sodium Succinate 60 mg Q8HR IV 01/30/25 09:00 Examination: LUNGS:Normal, CVS:Normal, MSK:Normal laboratory and microbiology Laboratory Tests 01/30/25 05:33 Test 01/30/25 05:33 Range/Units Serum Glucose 111 H 74-106 mg/dL Microbiology Date/Time Source Procedure Growth Status 01/29/25 01:49 Nose MRSA Screen - Final Complete Problem List/Assessment/Plan Problem List/Assessment/Plan Acute kidney injury hemodynamically mediated Chronic kidney disease stage IIIB. dr morrison Uncontrolled diabetes Hypertension Dehydration Recommendation Kidney function is improving Increased urine output Strict I&Os Kidney ultrasound reported within normal limit CT head negative Blood pressure control Insulin sliding scale We will continue to follow Plan discussed with: Patient Sepsis reassessment post fluid Capillary Refill: < 3 seconds KAREEN IGLESIAS MD Jan 30, 2025 09:06
[2025-01-30] MEDS: methylPREDNISolone SOD SUCC 125 MG/2 ML VL IV SCH (09:31)
[2025-01-30 10:00] VITALS: O2SAT 97
[2025-01-30 12:50] LABS: COVID19 ANTIGEN SOFIA FIA NEGATIVE (NEGATIVE)
--- NOTE | 2025-01-31 08:26 | DVHDS2 ---
Discharge Summary Date of Admission Jan 28, 2025 at 17:10 Date of Discharge: Jan 31, 2025 Admitting Diagnosis Shortness of breath Wounds: None Labs/Diagnostic Data: Laboratory Results Test 01/30/25 09:35 01/30/25 05:48 01/30/25 05:33 01/28/25 14:10 Influenza Type A Antigen Negative (Negative) Influenza Type B Antigen Negative (Negative) SARS-CoV-2 Antigen (Rapid) Negative (NEGATIVE) POC Glucose 139 mg/dl (70-106) White Blood Count 10.6 10^3/uL (4.4-10.8) Red Blood Count 4.61 10^6/uL (4.0-5.20) Hemoglobin 13.6 g/dL (12.2-16.2) Hematocrit 40.4 % (36.0-46.0) Mean Corpuscular Volume 87.5 fL (80.0-100.0) Mean Corpuscular Hemoglobin 29.5 pg (28.0-32.0) Mean Corpuscular Hemoglobin Concent 33.7 g/dL (32.0-36.0) Red Cell Distribution Width 14.1 % (11.8-14.3) Platelet Count 95 10^3/uL (140-450) Mean Platelet Volume 9.1 fL (6.9-10.8) Neutrophils (%) (Auto) 73.0 % (37.0-80.0) Lymphocytes (%) (Auto) 21.2 % (10.0-50.0) Monocytes (%) (Auto) 4.7 % (0.0-12.0) Eosinophils (%) (Auto) 0.7 % (0.0-7.0) Basophils (%) (Auto) 0.4 % (0.0-2.0) Neutrophils # (Auto) 7.8 10 ^3/uL (1.6-8.6) Lymphocytes # (Auto) 2.3 10 ^3/uL (0.4-5.4) Monocytes # (Auto) 0.5 10 ^3/uL (0-1.3) Eosinophils # (Auto) 0.1 10 ^3/uL (0-0.8) Basophils # (Auto) 0 10 ^3/uL (0-0.2) Nucleated Red Blood Cells 0.1 % Sodium Level 137 mmol/L (136-145) Potassium Level 4.3 mmol/L (3.5-5.1) Chloride Level 98 mmol/L (98-107) Carbon Dioxide Level 29 mmol/L (20-31) Anion Gap 10 (5-15) Blood Urea Nitrogen 15 mg/dL (9-23) Creatinine 1.34 mg/dL (0.550-1.02) Glomerular Filtration Rate Calc 49 mL/min (>90) BUN/Creatinine Ratio 11.2 (10.0-20.0) Serum Glucose 111 mg/dL (74-106) Calcium Level 9.8 mg/dL (8.7-10.4) Total Bilirubin 0.3 mg/dL (0.2-1.0) Aspartate Amino Transferase (AST) 36 U/L (13-40) Alanine Aminotransferase (ALT) 15 U/L (7-40) Alkaline Phosphatase 148 U/L (46-116) Total Protein 7.2 g/dL (5.7-8.2) Albumin 4.2 g/dL (3.2-4.8) Urine Color Yellow (Yellow) Urine Clarity Clear (Clear) Urine pH 6.0 (5.0-9.0) Urine Specific [place] 1.016 (1.001-1.035) Urine Protein 2+ (Negative) Urine Ketones Negative (Negative) Urine Blood Negative /uL (Negative) Urine Nitrite Negative (Negative) Urine Bilirubin Negative (Negative) Urine Urobilinogen Normal mg/dL (Negative) Urine Leukocyte Esterase Negative /uL (Negative) Urine RBC 1 /hpf (0 - 4) Urine Microscopic WBC 1 /HPF (0-5) Urine Squamous Epithelial Cells Few /hpf (<5) Urine Bacteria None seen /hpf (None Seen) Urine Hyaline Casts Mod /lpf (0 - 2) Urine Glucose Trace mg/dL (Normal) Urine Opiates Screen Pos (NEGATIVE) Urine Fentanyl Screen Neg (NEGATIVE) Urine Barbiturates Screen Neg (NEGATIVE) Urine Phencyclidine Screen Neg (NEGATIVE) Urine Amphetamines Screen Neg (NEGATIVE) Urine Benzodiazepines Screen Pos (NEGATIVE) Urine Cocaine Screen Neg (NEGATIVE) Urine Cannabinoids Screen Pos (NEGATIVE) Test 01/28/25 12:42 D-Dimer, Quantitative 0.32 mg/L FEU (0.0-0.49) Lactic Acid Level 1.6 mmol/L (0.4-2.0) Ammonia 12 umol/L (11-32) Troponin I High Sensitivity < 3 ng/L (</=34) C-Reactive Protein High Sensitivity 3.47 mg/dL (<1.0) B-Type Natriuretic Peptide 42.86 pg/mL (0-100) Other Laboratory Tests 01/30/25 05:33 Brief Hx & Hospital Course: 49-year-old female with a history of seizures hypertension hepatitis chronic current smoker asthma history of lupus atrophic left kidney came in complaining of shortness of breaths. Found to have community-acquired pneumonia treated with Rocephin azithromycin albuterol Atrovent flu test negative Josee test negative CKD three at [facility] by spinner hand. While awaiting stabilization patient left AMA. Consequences complications explained to the patient and she verbalized understanding general condition fair at the time of discharge Consults/Reason for consult None Operations or Procedures None Condition at Discharge: Fair Final Diagnosis/Problems List Sepsis secondary to community-acquired pneumonia Gram-positive/Gram-negative: Rocephin azithromycin albuterol Atrovent Rapid flu test negative Josee test negative Acute asthma exacerbation: Albuterol Atrovent Solu-Medrol Patient does not use oxygen at home CKD three: Consult by Dr. zambrano History of atrophic left kidney uncontrolled diabetes: Insulin sliding scale Hypertension History of seizures History of hepatitis Chronic current smoker: Refuses patch, counseling more than 20 mts History of lupus not on treatment Time spent 50 minutes Discharge Disposition: AMA Discharge Instruct/Medications Diet comment: Not applicable Patient left AMA Activity comment: Not applicable Patient left AMA Follow Up/Referral: Not applicable Patient left AMA Medications: Not applicable Patient left AMA Scheduled Baclofen (Baclofen), 10 MG PO BID, (Reported) Cenobamate (XCOPRI 14 x 150 MG & 14 x200 MG), 1 CHRISTOPHER PO BID, (Reported) Cenobamate (XCOPRI 14 x 150 MG & 14 x200 MG), 1 CHRISTOPHER PO BID, (Reported) Cenobamate (Xcopri), 150 MG PO DAILY, (Reported) Cenobamate (Xcopri), 200 MG PO HS, (Reported) Fluoxetine Hcl (Fluoxetine Hcl), 20 MG PO DAILY, (Reported) Gabapentin (Gabapentin), 300 MG PO TID, (Reported) Hydrocodone-Acetaminophen (Hydrocodone Bitartrate/AC 10-325 mg), 1 TAB PO TID, (Reported) Hydroxychloroquine Sulfate (Hydroxychloroquine Sulfat), 200 MG PO BID, (Reported) Lorazepam (Lorazepam), 1 MG PO DAILY, (Reported) Oxcarbazepine (Trileptal), 600 MG PO BID, (Reported) Oxcarbazepine (Oxtellar Xr), 150 MG PO BID, (Reported) Quetiapine Fumerate (Seroquel), 800 MG PO DAILY@DINNER, (Reported) Temazepam (Restoril), 1 CAP PO QPM, (Reported) Valsartan-Hydrochlorothiazide (Diovan Hct), 1 TAB PO DAILY, (Reported) Miscellaneous Medications Insulin Lispro (Insulin Lispro), 100 UNIT IJ, (Reported) Quetiapine Fumerate (Seroquel), 25 MG PO, (Reported) 39 (Time taken for discharge summary 39 minutes) Discharge Statement: "Patient was advised to return to the ER or call 911 if any headaches, dizziness, shortness of breath, chest pain, abdominal pain, bleeding, fevers, or worsening of medical condition. Patient was counseled about treatment plan, medications, possible side effects, patientverbalized understanding. All questions were answered to the best of my ability. This discharge took greater then 30 minutes in planning, reviewing documentation, counseling the patient, and discussing with other team members." ASSESSMENT ASSESSMENT Hospital Course Improved Assessment Date of Service: Jan 31, 2025 Billing Provider: CARLOS VO MD Common Visit Codes: [id number] DISCH DAY >30min CARLOS VO MD Jan 31, 2025 08:26
== END 2025-01-30 12:00 | disposition left against medical advice (07) | DRG 720 ==
LOC: EDBD 11:45 → EDUNIT# 11:45 → ER 11:45 → OVERFLOW 17:10 → CENTRAL 18:46
PROVIDERS: ADMIT Family Medicine; ATTEND Family Medicine
DX: A41.59 Other Gram-negative sepsis (principal); J96.01 Acute respiratory failure with hypoxia; J15.69 Pneumonia due to other Gram-negative bacteria; J15.9 Unspecified bacterial pneumonia; N17.9 Acute kidney failure, unspecified; J44.0 Chronic obstructive pulmonary disease with (acute) lower respiratory infection; K73.9 Chronic hepatitis, unspecified; J45.901 Unspecified asthma with (acute) exacerbation; E11.22 Type 2 diabetes mellitus with diabetic chronic kidney disease; Z20.822 Contact with and (suspected) exposure to COVID-19; N18.32 Chronic kidney disease, stage 3b; I25.10 Atherosclerotic heart disease of native coronary artery without angina pectoris; I12.9 Hypertensive chronic kidney disease with stage 1 through stage 4 chronic kidney disease, or unspecified chronic kidney disease; G40.909 Epilepsy, unspecified, not intractable, without status epilepticus; F17.210 Nicotine dependence, cigarettes, uncomplicated; F12.90 Cannabis use, unspecified, uncomplicated; R65.20 Severe sepsis without septic shock; E86.0 Dehydration; Z53.29 Procedure and treatment not carried out because of patient's decision for other reasons; Z88.5 Allergy status to narcotic agent; Z88.0 Allergy status to penicillin; Z83.3 Family history of diabetes mellitus; Z82.5 Family history of asthma and other chronic lower respiratory diseases; Z82.49 Family history of ischemic heart disease and other diseases of the circulatory system; Z82.3 Family history of stroke; Z82.0 Family history of epilepsy and other diseases of the nervous system; Z81.8 Family history of other mental and behavioral disorders
CPT/HCPCS: 36415; 70450; 71045; 76775; 80053; 80307; 81001; 82140; 82962; 83605; 83880; 84484; 85025; 85379; 86141; 87081; 87426; 87804; 93005; 94640; 96360; G0378; J1815; J2405; J2470

== ENCOUNTER 2025-05-27 10:37 | Inpatient (IN) | payer MEDICAID ==
[~2025-05-27] VITALS: Ht 172.7 cm; Wt 86.7 kg
[2025-05-27] VITALS (8 sets, daily range): BP systolic 135–159; BP diastolic 83–90; PULSE 80–94; RESP 15–20; TEMP 97.6–98.9; O2SAT 94–97
[2025-05-27] MEDS: DOXYCYCLINE 100MG/100ML 100 ML IV ONE (00:36)
--- NOTE | 2025-05-27 11:09 | ED.PDOC ---
History of Present Illness HPI Comments 49F BIBA w/ prior MHx of DM, HTN and the c/c of flu-like symptoms. Pt is a poor Hx. EMS report on the pt having had Flu-like symptoms of cough/nasal congestion/back pain for 1 month but had a sudden onset of a MEJIA last night associated w/ generalized weakness onto this morning. When the pt woke up w/ generalized weakness, it prompted her to call 911. When EMS arrived to the pt's home, the pt had a BS of 225 which is baseline for the pt and was satting at 89% RA, for which EMS gave the pt 2L of O2 via NC en route bringing the pt up to 95%. Denies any symptoms at this time. Patient denies any CP, SOB, dizziness, numbness, weakness, tingling, fever, chills, or recent fall. Chief Complaint: Flu like Time Seen by MD: 11:00 Reviewed Notes: Nurses Notes, Book Shelver Notes, Medications, Allergies Allergies: Coded Allergies: Codeine (Verified Allergy, Unknown, itching, 12/26/24) not from [employer] per patient Morphine (Verified Allergy, Unknown, 12/25/24) Penicillins (Verified Allergy, Unknown, 12/25/24) Home Meds Reported Medications Cenobamate (Xcopri) 200 Mg Tab, 200 MG PO HS for 30 Days, #30 TAB 12/28/24 Cenobamate (Xcopri) 150 Mg Tab, 150 MG PO DAILY for 30 Days, #30 TAB 12/28/24 Cenobamate (XCOPRI 14 x 150 MG & 14 x200 MG) 1 Walker Walker, 1 WALKER PO BID for 30 Days, #60 PACK 12/28/24 Cenobamate (XCOPRI 14 x 150 MG & 14 x200 MG) 1 Walker Walker, 1 WALKER PO BID for 30 Days, #30 PACK 2 Refills 12/28/24 Insulin Lispro (Insulin Lispro) 100 Unit/Ml Inj, 100 UNIT IJ, INJ 12/25/24 Oxcarbazepine (OXTELLAR XR) 150 Mg Tab, 150 MG PO BID, TAB 12/25/24 Temazepam (Restoril) 15 Mg Cp, 1 CAP PO QPM, #30 CAP 1 Refill 12/25/24 Oxcarbazepine (Trileptal) 600 Mg Tab, 600 MG PO BID for seizure, TAB 12/25/24 Valsartan-Hydrochlorothiazide (Diovan Hct) 160 /12.5 Tab, 1 TAB PO DAILY, #30 TAB 5 Refills 12/25/24 Baclofen (Baclofen) 10 Mg Tab, 10 MG PO BID, MG 12/25/24 Lorazepam (Lorazepam) 1 Mg Tab, 1 MG PO DAILY, TAB 12/25/24 Quetiapine Fumerate (Seroquel) 25 Mg Tab, 25 MG PO for anxiety for 30 Days, MG 12/25/24 Fluoxetine Hcl (Fluoxetine Hcl) 20 Mg Cap, 20 MG PO DAILY, MG 12/25/24 Hydroxychloroquine Sulfate (Hydroxychloroquine Sulfat) 200 Mg Tab, 200 MG PO BID for lupus , MG 12/25/24 Quetiapine Fumerate (Seroquel) 50 Mg Tab, 800 MG PO DAILY@DINNER for 30 Days, MG 12/25/24 Hydrocodone-Acetaminophen (Hydrocodone Bitartrate/AC 10-325 mg) 1 Tab Tab, 1 TAB PO TID, TAB 12/25/24 Gabapentin (Gabapentin) 300 Mg Cap, 300 MG PO TID, MG 12/25/24 Information Source: Patient, Emergency Med Personnel Mode of Arrival: EMS Severity: Moderate Timing: Weeks Duration: Since onset Prehospital treatment: Oxygen (2L via NC) Past Medical History PAST MEDICAL HISTORY: DM, HTN Surgical History: Denies all surgeries 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 INSPECTOR History: Denies all FRUIT INSPECTOR Hx Family History Family History: Reviewed,noncontributory to illness, Unknown Social History Smoker: Cigarettes, Greater Than 1 Pack/Day Alcohol: Occasionally Drugs: Denies Drug Use Lives In: Home Constitutional: reports: weakness; denies: chills, diaphoresis, fatigue, fever, malaise, sweats, others EENTM: reports: nose congestion; denies: blurred vision, double vision, ear bleeding, ear discharge, ear drainage, ear pain, ear ringing, eye pain, eye redness, hearing loss, mouth pain, mouth swelling, nasal discharge, nose bleeding, nose pain, photophobia, tearing, throat pain, throat swelling, voice changes, others Respiratory: reports: cough; denies: hemoptysis, orthopnea, SOB at rest, shortness of breath, SOB with excertion, stridor, wheezing, others Cardiovascular: denies: chest pain, dizzy spells, diaphoresis, Dyspnea on exertion, edema, irregular heart beat, left arm pain, lightheadedness, palpitations, PND, syncope, others Gastrointestinal: denies: abdomen distended, abdominal pain, blood streaked bowels, constipated, diarrhea, dysphagia, difficulty swallowing, hematemesis, melena, nausea, poor appetite, poor fluid intake, rectal bleeding, rectal pain, vomiting, others Genitourinary: denies: abnormal vagina bleeding, burning, dyspareunia, dysuria, flank pain, frequency, hematuria, incontinence, pain, , vagina discharge, urgency, others Neurological: denies: dizziness, fainting, headache, left sided numbness, left sided weakness, numbness, paresthesia, pre-existing deficit, right sided numbness, right sided weakness, seizure, speech problems, tingling, tremors, weakness, others Musculoskeletal: reports: back pain; denies: gout, joint pain, joint swelling, muscle pain, muscle stiffness, neck pain, others Integumetry: denies: bruises, change in color, change in hair/nails, dryness, laceration, lesions, lumps, rash, wounds, others Allergic/Immunocompromised: denies: Difficulty Healing, Frequent Infections, Hives, Itching, others Hematologic/Lymphatic: denies: anemia, blood clots, easy bleeding, easy bruising, swollen glands, others Endocrine: denies: excessive hunger, excessive sweating, excessive thirst, excessive urination, flushing, intolerance to cold, intolerance to heat, unexplained weight gain, unexplained weight loss, others Psychiatric: denies: anxiety, bipolar disorder, depression, hopeless, panic disorder, schizophrenia, sleepless, suicidal, others All Other Systems: Reviewed and Negative Physical Exam Exam Comments lethargic General Appearance: No Apparent Distress, Normal HEENT: Normal ENT Inspection, Pharynx Normal, TMs Normal Neck: Full Range of Motion, Non-Tender, Normal, Normal Inspection Respiratory: Chest Non-Tender, Lungs Clear, No Accessory Muscle Use, No Respiratory Distress, Normal Breath Sounds Cardiovascular: No Edema, No JVD, No Murmur, No Gallop, Normal Peripheral Pulses, Regular Rate/Rhythm Breast Exam: Deferred Gastrointestinal: No Organomegaly, Non Tender, No Pulsatile Mass, Normal Bowel Sounds, Soft Genitalia: Deferred Pelvic: Deferred Rectal: Deferred Extremities: No calf tenderness, Normal capillary refill, Normal inspection, Normal range of motion, Non-tender, No pedal edema Musculoskeletal : Apperance: Normal Neurologic: Alert, 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 Was a procedure done?: No Differential Dx Considerations may include: Pneumonia, generalized weakness, metabolic encephalopathy X-Ray, Labs, Meds, VS Vital Signs Date Time Temp Pulse Resp B/P (MAP) Pulse Ox O2 Delivery O2 Flow Rate FiO2 05/27/25 12:05 87 15 95 Nasal Cannula* 3 32 05/27/25 12:05 99.2 87 15 109/63 (78) 95 99.2 05/27/25 11:00 98.2 85 15 105/59 (74) 94 98.2 05/27/25 11:00 85 15 94 Nasal Cannula* 3 32 05/27/25 10:40 97.9 99 18 102/70 95 97.9 Lab Test 05/27/25 13:14 05/27/25 11:56 05/27/25 11:13 Range/Units Urine Color Light-yellow Yellow Urine Clarity Clear Clear Urine pH 6.0 5.0-9.0 Urine Specific [place] 1.012 1.001-1.035 Urine Protein 3+ H Negative Urine Ketones Negative Negative Urine Blood Negative Negative /uL Urine Nitrite Negative Negative Urine Bilirubin Negative Negative Urine Urobilinogen Normal Negative mg/dL Urine Leukocyte Esterase Negative Negative /uL Urine RBC <1 0 - 4 /hpf Urine Microscopic WBC < 1 0-5 /HPF Urine Squamous Epithelial Cells Few <5 /hpf Urine Bacteria None seen None Seen /hpf Urine Glucose 2+ H Normal mg/dL Urine Opiates Screen Pos NEGATIVE Urine Fentanyl Screen Neg NEGATIVE Urine Barbiturates Screen Neg NEGATIVE Urine Phencyclidine Screen Neg NEGATIVE Urine Amphetamines Screen Neg NEGATIVE Urine Benzodiazepines Screen Neg NEGATIVE Urine Cocaine Screen Neg NEGATIVE Urine Cannabinoids Screen Pos NEGATIVE Troponin I High Sensitivity < 3 L < 3 L </=34 ng/L White Blood Count 4.6 4.4-10.8 10^3/uL Red Blood Count 5.10 4.0-5.20 10^6/uL Hemoglobin 13.2 12.2-16.2 g/dL Hematocrit 40.8 36.0-46.0 % Mean Corpuscular Volume 80.0 80.0-100.0 fL Mean Corpuscular Hemoglobin 25.9 L 28.0-32.0 pg Mean Corpuscular Hemoglobin Concent 32.3 32.0-36.0 g/dL Red Cell Distribution Width 15.9 H 11.8-14.3 % Platelet Count 120 L 140-450 10^3/uL Mean Platelet Volume 8.8 6.9-10.8 fL Neutrophils (%) (Auto) 55.9 37.0-80.0 % Lymphocytes (%) (Auto) 35.4 10.0-50.0 % Monocytes (%) (Auto) 5.8 0.0-12.0 % Eosinophils (%) (Auto) 2.2 0.0-7.0 % Basophils (%) (Auto) 0.7 0.0-2.0 % Neutrophils # (Auto) 2.6 1.6-8.6 10 ^3/uL Lymphocytes # (Auto) 1.6 0.4-5.4 10 ^3/uL Monocytes # (Auto) 0.3 0-1.3 10 ^3/uL Eosinophils # (Auto) 0.1 0-0.8 10 ^3/uL Basophils # (Auto) 0 0-0.2 10 ^3/uL Nucleated Red Blood Cells 0.1 % Sodium Level 137 136-145 mmol/L Potassium Level 3.1 L 3.5-5.1 mmol/L Chloride Level 96 L 98-107 mmol/L Carbon Dioxide Level 32 H 20-31 mmol/L Anion Gap 9 5-15 Blood Urea Nitrogen 16 9-23 mg/dL Creatinine 1.36 H 0.550-1.02 mg/dL Glomerular Filtration Rate Calc 48 >90 mL/min BUN/Creatinine Ratio 11.8 10.0-20.0 Serum Glucose 300 H 74-106 mg/dL Lactic Acid Level 1.6 0.4-2.0 mmol/L Calcium Level 9.1 8.7-10.4 mg/dL Total Bilirubin 0.2 0.2-1.0 mg/dL Aspartate Amino Transferase (AST) 19 13-40 U/L Alanine Aminotransferase (ALT) 29 7-40 U/L Alkaline Phosphatase 127 H 46-116 U/L Total Protein 6.1 5.7-8.2 g/dL Albumin 3.3 3.2-4.8 g/dL Current Medications Medications (Trade) Dose Ordered Sig/Rolly Route Start Time Stop Time Status Last Admin Potassium Bicarbonate (Klor-Con/Ef) 50 meq ONCE ONCE PO 05/27/25 12:30 05/27/25 12:41 DC 05/27/25 13:16 Sodium Chloride 1,000 ml @ 1,000 mls/hr Q1H ONCE IV 05/27/25 12:30 05/27/25 13:29 DC 05/27/25 13:16 Azithromycin (Zithromax Tablet) 500 mg ONCE ONCE PO 05/27/25 13:45 05/27/25 13:46 DC 05/27/25 13:47 X-Ray, Labs, Meds, VS Comment Patient will be admitted for generalized weakness, and pneumonia Patient is started on azithromycin Patient hemodynamically stable Time of 1ST Reevaluation: 11:30 Reevaluation 1ST: Unchanged Patient Education/Counseling: Diagnosis, Treatment, Prognosis Family Education/Counseling: No Family Present SEPSIS Sepsis Screen Date sepsis recognized/suspect: May 27, 2025 Time Sepsis recognized/suspect: 1039 Recent Procedure: No On Antibiotic Therapy: No Respiratory Rate >20: No Heart Rate >90: Yes Temp<36 C (96.8 F) or >38.3 C: No SBP <90 or MAP <65 mmHG: No New Acute Mental Status Change: No Is the patient on CPAP, BIPAP,: No Physician Orders Chest Xray 1 View (05/27/25 11:04) Azithromycin 500mg/250ml (Zithromax 500m (05/27/25 12:30) Insert Fuller Catheter QSHIFT (05/27/25 13:34) Urine Bacterial Culture (05/27/25 13:34) Vital Signs Date Time Temp Pulse Resp B/P (MAP) Pulse Ox O2 Delivery O2 Flow Rate FiO2 05/27/25 12:05 87 15 95 Nasal Cannula* 3 32 05/27/25 12:05 99.2 87 15 109/63 (78) 95 99.2 05/27/25 11:00 98.2 85 15 105/59 (74) 94 98.2 05/27/25 11:00 85 15 94 Nasal Cannula* 3 32 05/27/25 10:40 97.9 99 18 102/70 95 97.9 Laboratory Tests Test 05/27/25 11:13 Lactic Acid Level 1.6 mmol/L (0.4-2.0) White Blood Count 4.6 10^3/uL (4.4-10.8) Medications Medications Dose Ordered Sig/Rolly Route Start Time Stop Time Status Last Admin Dose Admin Azithromycin 500 mg ONCE ONCE PO 05/27/25 13:45 05/27/25 13:46 DC 05/27/25 13:47 Potassium Bicarbonate 50 meq ONCE ONCE PO 05/27/25 12:30 05/27/25 12:41 DC 05/27/25 13:16 Sodium Chloride 1,000 ml @ 1,000 mls/hr Q1H ONCE IV 05/27/25 12:30 05/27/25 13:29 DC 05/27/25 13:16 Departure 1 Departure Time of Disposition: 14:18 Impression: Primary Impression: Hypokalemia Additional Impressions: Dehydration Pneumonia Qualified Codes: J18.9 - Pneumonia, unspecified organism Disposition: ADMITTED INPATIENT Condition: Stable Discharged With: Self Critical Care Note Critical Care Time?: No Stability Stability form required: No I personally scribed for STEPHEN BLAND ([email or web address]) on 05/27/25 at 11:09. Electronically submitted by Nicholas Gonzalez ([email or web address]). STEPHEN BLAND May 27, 2025 11:09
[2025-05-27 11:29] LABS: Hemoglobin 13.2 g/dL (12.2-16.2); Mean Corpuscular Hemoglobin 25.9 pg (28.0-32.0)
[2025-05-27 11:30] LABS: Hematocrit 40.8 % (36.0-46.0); Mean Corpuscular Volume 80.0 fL (80.0-100.0); Nucleated Red Blood Cells % 0.1 %
[2025-05-27 11:46] LABS: Alanine Aminotransferase 29 U/L (7-40); Albumin 3.3 g/dL (3.2-4.8); Anion Gap 9 (5-15); BUN/Creatinine Ratio 11.8 (10.0-20.0); Blood Urea Nitrogen 16 mg/dL (9-23); Calcium 9.1 mg/dL (8.7-10.4); Sodium 137 mmol/L (136-145); Total Protein 6.1 g/dL (5.7-8.2)
[2025-05-27 11:50] LABS: Alkaline Phosphatase 127 U/L (46-116); Bilirubin, Total 0.2 mg/dL (0.2-1.0); Carbon Dioxide 32 mmol/L (20-31); Chloride 96 mmol/L (98-107); Glucose 300 mg/dL (74-106); Potassium 3.1 mmol/L (3.5-5.1)
--- NOTE | 2025-05-27 11:55 | DVH ---
CHEST RADIOGRAPH INDICATION: sob TECHNIQUE: Single frontal view of the chest was obtained COMPARISON: XY CHEST PORTABLE on DOS: 01/28/25, XY CHEST PORTABLE on DOS: 12/25/24 FINDINGS: Lines and Tubes: None Lungs: Bibasilar subsegmental atelectasis. Pleura: No effusion. No pneumothorax. Cardiomediastinal contours: Unremarkable Bones: Unremarkable IMPRESSION: Bibasilar subsegmental atelectasis. Possible developing pneumonia in the right lower lobe.
[2025-05-27] MEDS: AZITHROMYCIN 500MG/250ML 250 ML IV ONE (12:30)
[2025-05-27] MEDS: SODIUM CHLORIDE 0.9% 1,000 ML IV ONE (13:16)
[2025-05-27] MEDS: POTASSIUM EFFERVESENT TAB 25 MEQ PO ONE ×2 (13:16→23:49)
[2025-05-27] MEDS: AZITHROMYCIN 250 MG TAB PO ONE (13:47)
[2025-05-27 13:50] LABS: Urine Protein, UAD 3+ (Negative)
[2025-05-27 14:02] LABS: Benzodiazephine Screen, Urine Neg (NEGATIVE)
[2025-05-27 14:06] LABS: Amphetamine Screen, Urine Neg (NEGATIVE); Barbiturate Scree,Urine Neg (NEGATIVE); Cannabinoid Screen, Urine Pos (NEGATIVE); Cocaine Screen, Urine Neg (NEGATIVE); Opiate Scree,Urine Pos (NEGATIVE); Phencyclidine Screen, Urine Neg (NEGATIVE)
--- NOTE | 2025-05-27 14:56 | DVHHPRES ---
History of Present Illness Resident Creating Document: EVENS MOODY RESIDENT History of Present Illness Nichelle Morataya, a 49-year-old female with a history of seizure disorder on lacosamide, and oxcarbazepine, COPD/ asthma, generalized anxiety disorder / depression, hypertension, restless leg syndrome, chronic low back pain on [place] 10 , type 2 diabetes mellitus, dyslipidemia, brought in by EMS for flu-like symptoms (cough, nasal congestion, back pain) for one month and sudden onset headache with generalized weakness this morning, found hypoxic at 89% on room air and hyperglycemic at 225 en route, improved to 95% on 2L O?, currently denies chest pain, shortness of breath, fever, or other acute symptoms. Extremely poor historian. PMHx: seizure disorder on lacosamide, and oxcarbazepine, COPD/ asthma, generalized anxiety disorder / depression, hypertension, restless leg syndrome, chronic low back pain on [place] 10 , type 2 diabetes mellitus, dyslipidemia PSHx: Denies all surgeries. Family history: Reviewed, noncontributory to illness, Unknown Social history: Smokes more than one pack of cigarettes per day, drinks alcohol occasionally, denies illicit drug use, and lives at home. Review of Systems Review of Systems Constitutional: Yes: Chills, Sweats, Weakness, Malaise; No: Fever, Other Eyes: No: Pain, Vision change, Conjunctivae inflammation, Eyelid inflammation, Other, Redness ENT: No: Ear pain, Ear discharge, Nose pain, Nose discharge, Nose congestion, Mouth pain, Mouth swelling, Throat pain, Throat swelling, Other Respiratory: Cough, Shortness of breath, SOB with excertion, Sputum; No: Dry, Wheezing, Hemoptysis, Pleuritic Pain, Wheezing, Other Cardiovascular: No: Chest Pain, Palpitations, Orthopnea, Paroxysmal Noc. Dyspnea, Edema, Lt Headedness, Other Gastrointestinal: No: Nausea, Vomiting, Abdominal Pain, Diarrhea, Constipation, Melena, Hematochezia, Other Genitourinary: No Dysuria, No Frequency, No Incontinence, No Hematuria, No Retention, No Other Musculoskeletal: back pain; No: other, neck pain, shoulder pain, arm pain, hand pain, leg pain, foot pain Skin: No: Rash, Lesions, Jaundice, Bruising, Other Neurological: Weakness; No: Numbness, Incoordination, Change in speech, Confusion, Seizures, Other Allergies: Coded Allergies: Codeine (Verified Allergy, Unknown, itching, 12/26/24) not from norco per patient Morphine (Verified Allergy, Unknown, 12/25/24) Penicillins (Verified Allergy, Unknown, 12/25/24) Medications Current Medications Medications Dose Ordered Sig/Rolly Route Start Time Stop Time Status Last Admin Dose Admin Acetaminophen/ Hydrocodone Bitart 1 tab Q4HP PRN PO 05/27/25 15:00 UNV Ondansetron HCl 4 mg Q4HP PRN IV 05/27/25 15:00 UNV Docusate Sodium 100 mg BIDPRN PRN PO 05/27/25 15:00 UNV Acetaminophen 650 mg Q6HP PRN PO 05/27/25 15:00 UNV Morphine Sulfate 2 mg Q4HPRN PRN IV 05/27/25 15:00 UNV Enoxaparin Sodium 40 mg DAILY SC 05/27/25 15:00 06/10/25 23:55 UNV Nitroglycerin 0.4 mg Q5MINP PRN SL 05/27/25 15:00 UNV Morphine Sulfate 2 mg Q30M PRN IV 05/27/25 15:00 UNV Exam Vital Signs Vital Signs Date Time Temp Pulse Resp B/P (MAP) Pulse Ox O2 Delivery O2 Flow Rate FiO2 05/27/25 12:05 87 15 95 Nasal Cannula* 3 32 05/27/25 12:05 99.2 109/63 (78) 99.2 General Appearance: Alert, Oriented X3, Cooperative HEENT: Atraumatic, PERRLA, EOMI, Other (dry mucosa) Respiratory: Normal air movement, Other (3L nc right lower lobe crackles, basal rales. ) Cardiovascular: Regular rate, Normal S1, Normal S2, No murmurs Abdominal: Normal bowel sounds, Soft, No tenderness, No hepatospenomegaly Extremities: No clubbing, No cyanosis, No edema, Normal pulses, No tenderness/swelling Skin: No rashes, No breakdown, No significant lesion Neuro: Normal speech, Strength at 5/5 X4 ext, Normal tone, Sensation intact, Cranial nerves 3-12 NL, Other (deferred gait ) Psych/Mental Status: Mental status NL, Mood NL, Other (was comfortably sleeping, woke up without issues. ) Labs/Xrays Labs Test 05/27/25 13:14 05/27/25 11:56 05/27/25 11:13 Range/Units Urine Color Light-yellow Yellow Urine Clarity Clear Clear Urine pH 6.0 5.0-9.0 Urine Specific [place] 1.012 1.001-1.035 Urine Protein 3+ H Negative Urine Ketones Negative Negative Urine Blood Negative Negative /uL Urine Nitrite Negative Negative Urine Bilirubin Negative Negative Urine Urobilinogen Normal Negative mg/dL Urine Leukocyte Esterase Negative Negative /uL Urine RBC <1 0 - 4 /hpf Urine Microscopic WBC < 1 0-5 /HPF Urine Squamous Epithelial Cells Few <5 /hpf Urine Bacteria None seen None Seen /hpf Urine Glucose 2+ H Normal mg/dL Urine Opiates Screen Pos NEGATIVE Urine Fentanyl Screen Neg NEGATIVE Urine Barbiturates Screen Neg NEGATIVE Urine Phencyclidine Screen Neg NEGATIVE Urine Amphetamines Screen Neg NEGATIVE Urine Benzodiazepines Screen Neg NEGATIVE Urine Cocaine Screen Neg NEGATIVE Urine Cannabinoids Screen Pos NEGATIVE Troponin I High Sensitivity < 3 L </=34 ng/L White Blood Count 4.6 4.4-10.8 10^3/uL Red Blood Count 5.10 4.0-5.20 10^6/uL Hemoglobin 13.2 12.2-16.2 g/dL Hematocrit 40.8 36.0-46.0 % Mean Corpuscular Volume 80.0 80.0-100.0 fL Mean Corpuscular Hemoglobin 25.9 L 28.0-32.0 pg Mean Corpuscular Hemoglobin Concent 32.3 32.0-36.0 g/dL Red Cell Distribution Width 15.9 H 11.8-14.3 % Platelet Count 120 L 140-450 10^3/uL Mean Platelet Volume 8.8 6.9-10.8 fL Neutrophils (%) (Auto) 55.9 37.0-80.0 % Lymphocytes (%) (Auto) 35.4 10.0-50.0 % Monocytes (%) (Auto) 5.8 0.0-12.0 % Eosinophils (%) (Auto) 2.2 0.0-7.0 % Basophils (%) (Auto) 0.7 0.0-2.0 % Neutrophils # (Auto) 2.6 1.6-8.6 10 ^3/uL Lymphocytes # (Auto) 1.6 0.4-5.4 10 ^3/uL Monocytes # (Auto) 0.3 0-1.3 10 ^3/uL Eosinophils # (Auto) 0.1 0-0.8 10 ^3/uL Basophils # (Auto) 0 0-0.2 10 ^3/uL Nucleated Red Blood Cells 0.1 % Sodium Level 137 136-145 mmol/L Potassium Level 3.1 L 3.5-5.1 mmol/L Chloride Level 96 L 98-107 mmol/L Carbon Dioxide Level 32 H 20-31 mmol/L Anion Gap 9 5-15 Blood Urea Nitrogen 16 9-23 mg/dL Creatinine 1.36 H 0.550-1.02 mg/dL Glomerular Filtration Rate Calc 48 >90 mL/min BUN/Creatinine Ratio 11.8 10.0-20.0 Serum Glucose 300 H 74-106 mg/dL Lactic Acid Level 1.6 0.4-2.0 mmol/L Calcium Level 9.1 8.7-10.4 mg/dL Total Bilirubin 0.2 0.2-1.0 mg/dL Aspartate Amino Transferase (AST) 19 13-40 U/L Alanine Aminotransferase (ALT) 29 7-40 U/L Alkaline Phosphatase 127 H 46-116 U/L Total Protein 6.1 5.7-8.2 g/dL Albumin 3.3 3.2-4.8 g/dL SEPSIS Sepsis Screen Date sepsis recognized/suspect: May 27, 2025 Time Sepsis recognized/suspect: 1040 Recent Procedure: No On Antibiotic Therapy: No Respiratory Rate >20: No Heart Rate >90: Yes Temp<36 C (96.8 F) or >38.3 C: No SBP <90 or MAP <65 mmHG: No New Acute Mental Status Change: No Is the patient on CPAP, BIPAP,: No Physician Orders Chest Xray 1 View (05/27/25 11:04) Insert Fuller Catheter QSHIFT (05/27/25 13:34) Urine Bacterial Culture (05/27/25 13:34) Admit (05/27/25 14:49) Allergies (05/27/25 14:49) Code Status (05/27/25 14:49) Oxygen Per Hour (05/27/25 14:49) Hydrocodone-Acet 5/325mg Tab ([place] 5/32 (05/27/25 15:00) Ondansetron Hcl (Zofran) (05/27/25 15:00) Docusate Sodium Capsule (Colace Capsule) (05/27/25 15:00) Complete Blood Count (05/28/25 04:00) Comprehensive Metabolic Panel (05/28/25 04:00) Cardiac Diet-2gna,Lofat,Lochol (05/27/25 Dinner) Echo 2d Mode Cardiac Dop (05/27/25 14:49) Condition: Serious (05/27/25 14:49) Acetaminophen Tablet (Tylenol Tablet) (05/27/25 15:00) Morphine Sulfate Injection (05/27/25 15:00) Enoxaparin Sodium (Lovenox) (05/27/25 15:00) Nitroglycerin Sublingual (Ntrostat Subli (05/27/25 15:00) Morphine Sulfate Injection (05/27/25 15:00) Oxygen By Nasal Cannula (05/27/25 14:49) Stat Ekg For Chest Pain (05/27/25 14:49) Notify Md Of Changes From Base (05/27/25 14:49) Insight Leader For 24 Hours (05/27/25 14:49) Emergency Dysrhythmia Protocol (05/27/25 14:49) Rhythm Strips Once Every Shift (05/27/25 14:49) Vital Signs Date Time Temp Pulse Resp B/P (MAP) Pulse Ox O2 Delivery O2 Flow Rate FiO2 05/27/25 12:05 87 15 95 Nasal Cannula* 3 32 05/27/25 12:05 99.2 87 15 109/63 (78) 95 99.2 05/27/25 11:00 98.2 85 15 105/59 (74) 94 98.2 05/27/25 11:00 85 15 94 Nasal Cannula* 3 32 05/27/25 10:40 97.9 99 18 102/70 95 97.9 Laboratory Tests Test 05/27/25 11:13 Lactic Acid Level 1.6 mmol/L (0.4-2.0) White Blood Count 4.6 10^3/uL (4.4-10.8) Medications Medications Dose Ordered Sig/Rolly Route Start Time Stop Time Status Last Admin Dose Admin Azithromycin 500 mg ONCE ONCE PO 05/27/25 13:45 05/27/25 13:46 DC 05/27/25 13:47 500 MG Potassium Bicarbonate 50 meq ONCE ONCE PO 05/27/25 12:30 05/27/25 12:41 DC 05/27/25 13:16 50 MEQ Sodium Chloride 1,000 ml @ 1,000 mls/hr Q1H ONCE IV 05/27/25 12:30 05/27/25 13:29 DC 05/27/25 13:16 1,000 MLS/HR Assessment/Plan Assessment/Plan #Community-acquired pneumonia: Gram-positive, g negatives atypical: Sputum culture, IV ceftriaxone and doxycycline to continue. We will avoid azithromycin given patient on multiple QT prolonging drugs. Rule out MRSA. #FARHAN due to VMN: Likely prerenal, renal ultrasound to do, likely euvolemic. #Known CKD stage IIIB: Likely due to underlying progressed uncontrolled diabetes mellitus, close BG monitoring, tight control. 3+ Protein in urine concerning for progressive renal disease, albumin and total protein WNL, check for lipid panel. #Seizure disorder on lacosamide: Denies any recent seizures on home lacosamide and oxcarbazepine, as per patient no recent seizures. #COPD/ asthma acute exacerbation: We will give nebulizers q.6 with steroids. #acute hypoxic respiratory failure: on 3 L of nasal cannula oxygen as per patient patient is not on round the clock oxygen. Wean oxygen and target SpO2 92%. #generalized anxiety disorder / depression: Fluoxetine 40 mg daily, complex disease, patient denies any self-harming or homicidal ideation. As needed Xanax. #restless leg syndrome: Continue ropinirole #chronic low back pain on [place] 10 : Multimodal pain management and patient is mentioning subjective weakness. #type 2 diabetes mellitus, Uncontrolled: Last HbA1c around 01/02 10+, SSI to start, presented with 300 BG, target BG 140-180 #dyslipidemia Complicated by diabetes: Continue atorvastatin #grade 1 obesity: 30.2 BMI, weight loss counseling done. #mild thrombocytopenia: 120: Platelets, close follow up SCDs avoid Lovenox, antiplatelets. #Uncontrolled essential hypertension: Hypertensive heart disease, cardiomegaly noted, BNP troponin and EKG and echo to check. No history and file. Labile blood pressure reaching up to 150s, target blood pressure 130/80 or below. #Hypokalemia: , mild: 3.1, continue telemetry. #cannabinoid use disorder: Detrimental effect of cannabinoids consult, U tox positive for cannabinoids. Symptomatic nausea control. IV fluid to continue #Active nicotine abuse: 11 minutes bedside smoking cessation counseling done, active smoker over 25 years, 14 mcg nicotine patch to continue. #Generalized weakness: Could be due to acute illness, prolonged steroids. Rule out infection, physical therapy before discharge to home for stability of posture and fall precautions. #Multiple allergies to codeine, morphine and penicillin's, avoid. PUD prophylaxis: protonix 40mg IV DVT prophylaxis: SCD/brisk movement. Avoid Lovenox given Thrombocytopenia. Barriers to discharge: Medical diagnosis and management in progress. Patient lives with self / family. Independent/need supportive device/wheelchair/person support for ADL. PT and SW consult as needed. PCP: Dr. Jiang. Specialist Relevant To Admission: None at the moment. Case discussed with Dr. Ratliff. Code Status: Full Code. Discussion for goals of care and care planning needed total 29 minutes bedside. inutes bedside. Plan discussed with: Patient My Orders Orders - EVENS MOODY RESIDENT Procedure Category Date Status Time Admit ADMIT 05/27/25 Transmitted 14:49 Allergies YANETH 05/27/25 In Process 14:49 Code Status CODE 05/27/25 Transmitted 14:49 Oxygen Per Hour RT 05/27/25 Transmitted 14:49 Hydrocodone-Acet PHA 05/27/25 Logged 5/325mg Tab ([place] 15:00 Ondansetron Hcl PHA 05/27/25 Logged (Zofran) 15:00 Docusate Sodium PHA 05/27/25 Logged Capsule (Colace 15:00 Complete Blood Count LAB 05/28/25 Verified 04:00 Comprehensive LAB 05/28/25 Verified Metabolic Panel 04:00 Cardiac DIET 05/27/25 Transmitted Diet-2gna,Lofat,Lochol Dinner Echo 2d Mode Cardiac US 05/27/25 Logged DOP 14:49 Condition: Serious YANETH 05/27/25 In Process 14:49 Acetaminophen Tablet PHA 05/27/25 Logged (Tylenol Tablet) 15:00 Morphine Sulfate PHA 05/27/25 Logged Injection 15:00 Enoxaparin Sodium PHA 05/27/25 Logged (Lovenox) 15:00 Nitroglycerin PHA 05/27/25 Logged Sublingual (Ntrostat 15:00 Morphine Sulfate PHA 05/27/25 Logged Injection 15:00 Oxygen By Nasal RT 05/27/25 Transmitted Cannula 14:49 Stat Ekg For Chest [facility] [place] 05/27/25 In Process Pain 14:49 Notify Md Of Changes [facility] [place] 05/27/25 In Process From Base 14:49 Insight Leader For [facility] [place] 05/27/25 In Process 24 Hours 14:49 Emergency Dysrhythmia [facility] [place] 05/27/25 In Process Protocol 14:49 Rhythm Strips Once [facility] [place] 05/27/25 In Process Every Shift 14:49 Date of Service: May 27, 2025 Billing Provider: MARQUITA RATLIFF MD Common Visit Codes: [id number] INP/OBS CARE (HIGH) Secondary Visit Codes: [id number] CARE PLAN 30 MINUTES EVENS MOODY RESIDENT May 27, 2025 14:56
[2025-05-27] MEDS ORDERED: MORPHINE SULFATE INJ 2 MG/ml SYRG IV PRN ×2 (15:00)
[2025-05-27] MEDS ORDERED: ONDANSETRON HCL 4 MG/2 ML VIAL IV PRN (15:00)
[2025-05-27] MEDS ORDERED: ACETAMINOPHEN 325 MG TAB PO PRN (15:00)
[2025-05-27] MEDS: ENOXAPARIN SOD 40 MG/0.4 ML SYRINGE SC SCH (15:00)
[2025-05-27] MEDS ORDERED: DOCUSATE SOD 100 MG CAP PO PRN (15:00)
[2025-05-27] MEDS ORDERED: NITROGLYCERIN 0.4 MG SL TAB SL PRN (15:00)
[2025-05-27] MEDS ORDERED: HYDROcodone-ACET 5/325MG TAB PO PRN (15:00)
[2025-05-27 21:48] LABS: COVID19 ANTIGEN SOFIA FIA NEGATIVE (NEGATIVE)
[2025-05-27] MEDS: ATORVASTATIN 20 MG TAB PO ONE (23:50)
[2025-05-27] MEDS: predniSONE 20 MG TAB PO ONE (23:50)
[2025-05-27] MEDS: NICOTINE 14 MG/24HR TOPICAL PATCH TD ONE (23:58)
[2025-05-28] VITALS (16 sets, daily range): BP systolic 138–183; BP diastolic 80–99; PULSE 76–111; RESP 16–20; TEMP 97.2–98.2; O2SAT 94–100
[2025-05-28] MEDS: LACTATED RINGER'S 1,000 ML IV SCH (04:30)
[2025-05-28 06:39] LABS: Hematocrit 43.7 % (36.0-46.0); Hemoglobin 14.2 g/dL (12.2-16.2); Mean Corpuscular Hemoglobin 26.0 pg (28.0-32.0); Mean Corpuscular Volume 79.9 fL (80.0-100.0); Nucleated Red Blood Cells % 0.1 %
[2025-05-28] MEDS: IPRATROPIUM BROM 0.5 MG/2.5ML INH SOL NEB SCH (06:43)
[2025-05-28] MEDS: ALBUTEROL SULF 2.5 MG/0.5ML(0.5%) NEB SOLN NEB SCH (06:43)
[2025-05-28 06:56] LABS: Alanine Aminotransferase 37 U/L (7-40); Albumin 3.9 g/dL (3.2-4.8); Anion Gap 8 (5-15); BUN/Creatinine Ratio 13.7 (10.0-20.0); Blood Urea Nitrogen 17 mg/dL (9-23); Calcium 9.3 mg/dL (8.7-10.4); Carbon Dioxide 30 mmol/L (20-31); Potassium 4.6 mmol/L (3.5-5.1); Total Protein 7.2 g/dL (5.7-8.2)
[2025-05-28 06:57] LABS: Bilirubin, Total 0.3 mg/dL (0.2-1.0)
[2025-05-28 06:59] LABS: Alkaline Phosphatase 154 U/L (46-116); Chloride 95 mmol/L (98-107); Glucose 366 mg/dL (74-106); Sodium 133 mmol/L (136-145)
[2025-05-28] MEDS: DOXYCYCLINE 100MG/100ML 100 ML IV SCH (10:33)
[2025-05-28] MEDS: predniSONE 20 MG TAB PO SCH (10:33)
[2025-05-28] MEDS: HYDROcodone-ACET 7.5/325MG TAB PO PRN (12:08)
[2025-05-28] MEDS ORDERED: DEXTROSE (50%) 50ML SYRG IV PRN ×2 (12:30→22:45)
--- NOTE | 2025-05-28 13:16 | DVH ---
EXAM DESCRIPTION: CT HEAD WITHOUT CONTRAST CLINICAL HISTORY: Confusion COMPARISON: CT HEAD WITHOUT CONTRAST on DOS: 01/28/25, MRI BRAIN HEAD WO CONTRAST on DOS: 12/28/24, CT HEAD WITHOUT CONTRAST on DOS: 12/25/24 TECHNIQUE: Noncontrast CT head was performed. Coronal MPR images were generated. CTDI/ DLP = 65.28 / 1286.23. Dose reduction technique with one or more of the following methods was performed: Automated exposure control, adjustment of the mA and/or kV according to patient size, use of iterative reconstruction technique. FINDINGS: No evidence of acute intracranial hemorrhage. No mass effect. No extra-axial collections of fluid or blood. The brain is normal in attenuation. The ventricles and sulci are normal in size for age. Clear basal cisterns. The calvarium is intact. The soft tissues are unremarkable. The paranasal sinuses and mastoid air cells are clear. IMPRESSION: 1. No acute intracranial findings.
[2025-05-28] MEDS: ACCU-CHEK COMFORT CURVE STRIP VI SCH ×2 (16:31→23:57)
[2025-05-28] MEDS: InsuLIN REG 1unit/0.01ml Soln (100units/ml) SC SCH ×3 (16:31→23:57)
[2025-05-28] MEDS: hydrALAZINE HCL 20 MG/ML VL IV PRN (16:43)
[2025-05-28] MEDS: LORazepam 0.5 MG TAB PO ONE (18:14)
[2025-05-28] MEDS ORDERED: LORazepam 0.5 MG TAB PO PRN (18:30)
[2025-05-28] MEDS: ATORVASTATIN 20 MG TAB PO SCH (22:01)
[2025-05-28] MEDS: INSULIN LANTUS (GLARGINE) 1 /0.01ml (100units/ml) SC SCH (22:01)
[2025-05-28] MEDS: NICOTINE 14 MG/24HR TOPICAL PATCH TD SCH (22:02)
--- NOTE | 2025-05-28 23:29 | DVHPN2 ---
Subjective The patient seen and examined at bedside. Complains of shortness of breath. The patient is very confuse. Sitter at bedside. Reviewed: Care Plan, H&P, Labs, Medications, Previous Orders, Radiology Changes from previous H/P or p: No Changes Objective Vitals Vital Signs Date Time Temp Pulse Resp B/P (MAP) Pulse Ox O2 Delivery O2 Flow Rate FiO2 05/28/25 19:08 101 18 99 05/28/25 18:58 Nasal Cannula* 2 28 05/28/25 17:00 97.6 169/99 (122) 97.6 Intake/Output Intake and Output 05/28/25 07:00 Intake Total 840 ml Output Total 1300 ml Balance -460 ml Intake Oral 840 ml Output Urine Total 1300 ml General Appearance: Alert HEENT: Atraumatic, PERRLA, EOMI, Mucous membr. moist/pink Neck: Supple Lungs: Clear to auscultation, Normal air movement Cardiovascular: Regular rate, Normal S1, Normal S2, No murmurs, Gallops, Rubs Abdomen: Normal bowel sounds, Soft, No tenderness Neuro: Cranial nerves 3-12 NL Medications Current Medications Medications Dose Ordered Sig/Rolly Route Start Time Stop Time Status Last Admin Dose Admin Acetaminophen/ Hydrocodone Bitart 1 tab Q4HP PRN PO 05/27/25 15:00 Ondansetron HCl 4 mg Q4HP PRN IV 05/27/25 15:00 Docusate Sodium 100 mg BIDPRN PRN PO 05/27/25 15:00 Acetaminophen 650 mg Q6HP PRN PO 05/27/25 15:00 Morphine Sulfate 2 mg Q4HPRN PRN IV 05/27/25 15:00 Hold Nitroglycerin 0.4 mg Q5MINP PRN SL 05/27/25 15:00 Morphine Sulfate 2 mg Q30M PRN IV 05/27/25 15:00 Acetaminophen/ Hydrocodone Bitart 1 tab Q4HP PRN PO 05/27/25 17:00 05/28/25 20:21 1 TAB Quetiapine Fumarate 50 mg HS PO 05/27/25 22:00 05/28/25 22:05 50 MG Fluoxetine HCl 20 mg DAILY PO 05/27/25 21:30 05/28/25 10:34 20 MG Ceftriaxone Sodium 50 ml @ 100 mls/hr DAILY@09 IV 05/29/25 09:00 Doxycycline Hyclate 100 ml @ 50 mls/hr Q12HR IV 05/28/25 10:00 05/28/25 22:02 50 MLS/HR Oxcarbazepine 300 mg Q12HR PO 05/28/25 10:00 05/28/25 22:02 300 MG Albuterol 2.5 mg Q6HWA NEB 05/28/25 06:00 05/28/25 17:58 2.5 MG Ipratropium [place] 0.5 mg Q6HWA NEB 05/28/25 06:00 05/28/25 17:58 0.5 MG Prednisone 40 mg DAILY PO 05/28/25 10:00 05/28/25 10:33 40 MG Atorvastatin Calcium 40 mg HS PO 05/28/25 22:00 05/28/25 22:01 40 MG Lactated Ringer's 1,000 ml @ 75 mls/hr [id number] IV 05/27/25 23:00 05/28/25 04:30 75 MLS/HR Nicotine 1 patch DAILY@2300 TD 05/28/25 23:00 05/28/25 22:02 1 PATCH Dextrose 50 ml UD PRN IV 05/28/25 12:30 Hydralazine HCl 10 mg Q6HP PRN IV 05/28/25 12:30 05/28/25 16:43 10 MG Insulin Glargine 10 units HS SC 05/28/25 22:00 05/28/25 22:01 10 UNITS Lorazepam 0.5 mg Q8HP PRN PO 05/28/25 18:30 Diagnostic Test (Pha) 1 strip IQ4HR 05/29/25 00:00 Insulin Human Regular IQ4HR SC 05/29/25 00:00 Dextrose 50 ml UD PRN IV 05/28/25 22:45 Laboratory Results Laboratory Tests 05/28/25 05:59 Chemistry Test 05/28/25 05:59 Albumin 3.9 g/dL (3.2-4.8) Calcium Level 9.3 mg/dL (8.7-10.4) Total Protein 7.2 g/dL (5.7-8.2) LFT Test 05/28/25 05:59 Alanine Aminotransferase (ALT) 37 U/L (7-40) Alkaline Phosphatase 154 U/L (46-116) H Aspartate Amino Transferase (AST) 25 U/L (13-40) Total Bilirubin 0.3 mg/dL (0.2-1.0) Urinalysis Test 05/27/25 13:14 Urine Color Light-yellow (Yellow) Urine Clarity Clear (Clear) Urine pH 6.0 (5.0-9.0) Urine Specific [place] 1.012 (1.001-1.035) Urine Protein 3+ (Negative) H Urine Ketones Negative (Negative) Urine Blood Negative /uL (Negative) Urine Nitrite Negative (Negative) Urine Bilirubin Negative (Negative) Urine Urobilinogen Normal mg/dL (Negative) Urine Leukocyte Esterase Negative /uL (Negative) Urine RBC <1 /hpf (0 - 4) Urine Microscopic WBC < 1 /HPF (0-5) Urine Squamous Epithelial Cells Few /hpf (<5) Urine Bacteria None seen /hpf (None Seen) Urine Glucose 2+ mg/dL (Normal) H Microbiology Microbiology Date/Time Source Procedure Growth Status 05/27/25 22:30 Nose MRSA Screen - Final Complete 05/27/25 13:14 Urine - [place] Urine Culture - Preliminary No growth Resulted Labs and/or images reviewed: Labs reviewed by me Assessment/Plan Assessment/Plan #Community-acquired pneumonia: Gram-positive, g negatives atypical: Sputum culture, IV ceftriaxone and doxycycline to continue. We will avoid azithromycin given patient on multiple QT prolonging drugs. Rule out MRSA. #FARHAN due to VMN: Likely prerenal, renal ultrasound to do, likely euvolemic. #Known CKD stage IIIB: Likely due to underlying progressed uncontrolled diabetes mellitus, close BG monitoring, tight control. 3+ Protein in urine concerning for progressive renal disease, albumin and total protein WNL, check for lipid panel. #Seizure disorder on lacosamide: Denies any recent seizures on home lacosamide and oxcarbazepine, as per patient no recent seizures. #COPD/ asthma acute exacerbation: We will give nebulizers q.6 with steroids. #acute hypoxic respiratory failure: on 3 L of nasal cannula oxygen as per patient patient is not on round the clock oxygen. Wean oxygen and target SpO2 92%. #generalized anxiety disorder / depression: Fluoxetine 40 mg daily, complex disease, patient denies any self-harming or homicidal ideation. As needed Xanax. #restless leg syndrome: Continue ropinirole #chronic low back pain on [place] 10 : Multimodal pain management and patient is mentioning subjective weakness. #type 2 diabetes mellitus, Uncontrolled: Last HbA1c around 01/02 10+, SSI to start, presented with 300 BG, target BG 140-180 #dyslipidemia Complicated by diabetes: Continue atorvastatin #grade 1 obesity: 30.2 BMI, weight loss counseling done. #mild thrombocytopenia: 120: Platelets, close follow up SCDs avoid Lovenox, antiplatelets. #Uncontrolled essential hypertension: Hypertensive heart disease, cardiomegaly noted, BNP troponin and EKG and echo to check. No history and file. Labile blood pressure reaching up to 150s, target blood pressure 130/80 or below. #Hypokalemia: , mild: 3.1, continue telemetry. #cannabinoid use disorder: Detrimental effect of cannabinoids consult, U tox positive for cannabinoids. Symptomatic nausea control. IV fluid to continue #Active nicotine abuse: 11 minutes bedside smoking cessation counseling done, active smoker over 25 years, 14 mcg nicotine patch to continue. #Generalized weakness: Could be due to acute illness, prolonged steroids. Rule out infection, physical therapy before discharge to home for stability of posture and fall precautions. Continue current management. I will add lantus 10 units sq qhs will add ativan 0.5 mg PO q 6h PRN for anxiety Will order CT head without contrast to rule out CVA. #Multiple allergies to codeine, morphine and penicillin's, avoid. Plan discussed with: Patient, Other (Rn) My Orders Orders - KEVIN MORENO MD Procedure Category Date Status Time Head Without Contrast CT 05/28/25 Resulted 12:16 Dextrose 50% Syringe PHA 05/28/25 In Process 12:30 Hydralazine Injection PHA 05/28/25 In Process (Apresoline Inject 12:30 Insulin Lantus PHA 05/28/25 In Process (Glargine) (Lantus) 22:00 Lorazepam Tablet PHA 05/28/25 In Process (Ativan Tablet) 18:30 Date of Service: May 28, 2025 Billing Provider: KEVIN MORENO MD Common Visit Codes: [id number] INP/OBS CARE(HIGH) KEVIN MORENO MD May 28, 2025 23:29
[2025-05-29 01:00] VITALS: BP 169/85; PULSE 100; RESP 18; TEMP 98.5; O2SAT 97
[2025-05-29 05:00] VITALS: BP 170/86; PULSE 101; RESP 19; TEMP 98.3; O2SAT 97
[2025-05-29 06:46] VITALS: BP 148/89; PULSE 114; RESP 22; TEMP 98.3; O2SAT 96
[2025-05-29] MEDS ORDERED: IPRATROPIUM BROM 0.5 MG/2.5ML INH SOL ONE (11:04)
[2025-05-29] MEDS ORDERED: ALBUTEROL SULF 2.5 MG/0.5ML(0.5%) NEB SOLN ONE (11:04)
== END 2025-05-29 07:20 | disposition left against medical advice (07) | DRG 137 ==
LOC: ER 10:37 → EDBD 10:37 → OVERFLOW 14:49 → EAST 16:30 → WEST WING 05-29 06:00
PROVIDERS: ADMIT Internal Medicine; ATTEND Internal Medicine
DX: J15.69 Pneumonia due to other Gram-negative bacteria (principal); N17.0 Acute kidney failure with tubular necrosis; J96.01 Acute respiratory failure with hypoxia; D69.6 Thrombocytopenia, unspecified; J45.901 Unspecified asthma with (acute) exacerbation; E86.0 Dehydration; J44.0 Chronic obstructive pulmonary disease with (acute) lower respiratory infection; J15.9 Unspecified bacterial pneumonia; E66.9 Obesity, unspecified; F32.A Depression, unspecified; G25.81 Restless legs syndrome; G40.909 Epilepsy, unspecified, not intractable, without status epilepticus; F12.10 Cannabis abuse, uncomplicated; E11.65 Type 2 diabetes mellitus with hyperglycemia; I13.10 Hypertensive heart and chronic kidney disease without heart failure, with stage 1 through stage 4 chronic kidney disease, or unspecified chronic kidney disease; N18.32 Chronic kidney disease, stage 3b; Z20.822 Contact with and (suspected) exposure to COVID-19; E87.6 Hypokalemia; E78.5 Hyperlipidemia, unspecified; F41.1 Generalized anxiety disorder; F17.210 Nicotine dependence, cigarettes, uncomplicated; G89.29 Other chronic pain; E11.22 Type 2 diabetes mellitus with diabetic chronic kidney disease; Z53.29 Procedure and treatment not carried out because of patient's decision for other reasons; Z88.5 Allergy status to narcotic agent; Z88.0 Allergy status to penicillin; Z68.30 Body mass index [BMI] 30.0-30.9, adult; Z71.6 Tobacco abuse counseling; Z79.4 Long term (current) use of insulin; Z79.899 Other long term (current) drug therapy; J44.1 Chronic obstructive pulmonary disease with (acute) exacerbation
CPT/HCPCS: 36415; 70450; 71045; 80053; 80307; 81001; 82962; 83036; 83605; 83880; 84443; 84484; 85025; 87081; 87086; 87426; 87804; 93306; 94640; 96360; 97163; G0378; J1815